=== PATIENT | female | born 1970 | race Caucasian/White ===

== ENCOUNTER 2024-10-24 13:07 | Inpatient (IN) | payer BC, SELFPAY ==
[2024-10-24] VITALS (44 sets, daily range): BP systolic 82–121; BP diastolic 54–109; PULSE 90–116; RESP 16–22; TEMP 36–36.4; O2SAT 70–100; BMI 23.0
--- OUTSIDE RECORDS SUMMARY | 2024-10-24 13:09 | XMS_ITS | Encounter Summary ---
Author Organization [facility] Address [address] [place] [address]. [place] [address] Care Team Providers Care Director Of Pediatric Rehabilitation Name Role Phone Devon Esquivel PA-C Unavailable [phone] Maddie Holden APRN MANNEQUIN WIG MAKER Unavailable [phone] Sinyigaya, Speciose THERMO PROCESSOR Unavailable [phone] No Ref-Primary, Physician Primary Care Provider Sinyigaya, Speciose THERMO PROCESSOR Unavailable [phone] Reason for Visit * Reason Comments Medication Refill propranolol (INDERAL ) 20 MG tablet Encounter Details Date Type Department Care Team (Late st Contact Info) Description 08/26/2023 Telephone [facility] [address] [place] [address] Devon Esquivel PA-C [address] [place] [address] Medication Refill (propranolol (INDERAL) 20 MG tablet) Social History Tobacco Use Types Packs/Day Years Used Date Smoking Tobacco: Every Day Cigarettes Smokeless Tobacco: Never Comments:Trying to quit. Alcohol Use Standard Drinks/Week Comments Not Currently 0 (1 standard drink = 0.6 oz pur e alcohol) PHQ-2 Answer Date Recorded PHQ-2 Score 2 08/18/2023 Adolescent Education Answer Date Record ed Getting School Help Needed Not on file 03/07 Comments No Sex and Gender Information Value Date Recorded Sex Assigned at Not on file Legal Sex Female 3:20 AM COATER HAND Gender Identity Not on file Sexual Orientation Not on file documented as of this encounter Miscellaneous Notes * Telephone Encounter - Kaila Ocampo - 08/26/2023 1:50 PM CDT Was not able to leave a VM due to Pt's VM being full. A MCM was sent to inform Pt that she is due for a annual Physical with AP. If Pt calls back and is able to schedule, Please forward message to AP to address the medication being filled. Kaila Severino Tool Inspector * Telephone Encounter - Lorri Leo APRN CNP - 08/26/2023 1:16 PM CDT Hasn't seen AP in >1 year. Given oziel refilled and advised to schedule in Mar 05. No appts made. Assist with scheduling and route back to AP to advise on refill once scheduled. Lorri Leo CNP documented in this encounter Plan of Treatment Not on file documented as of this encounter Visit Diagnoses Diagnosis Panic disorder with agoraphobia Agoraphobia with panic disorder documented in this encounter Additional Health Concerns Assessment Noted Time PHQ-9 Depression Total Score: 8 06/16/19 24 11:53 AM COATER HAND documented as of this encounter Care Teams Director Of Pediatric Rehabilitation Relationship Specialty Start Date End Date No Ref-Primary, Physician PCP - General 08/29/23 Devon Esquivel PA-C [address] [place] [address] Assigned PCP 12/03/21 Maddie Holden APRN CNP [address] [facility] [address] [place], [place] [address] Assigned Pain Medication Provider 06/21/22 03/04/24 Keila Saunders LICSW [address] [place] [address] Information Broker Information Broker - Clinical 09/02/22 Keila Saunders THERMO PROCESSOR [address] [place] [address] Assigned Behavioral Health Provider 10/04/23 08/04/24 documented as of this encounter
--- OUTSIDE RECORDS SUMMARY | 2024-10-24 13:09 | XMS_ITS | Encounter Summary ---
Author Organization [facility] Address [address] [facility] [place] [address] Care Team Providers Care Surgical Instrument Repair Specialist Name Role Phone Devon Esquivel PA-C Unavailable [phone] Maddie Holden APRN HYDRAULIC REPAIRER Unavailable [phone] Sinyigaya, Speciose COMMUNITY HEALTH NURSE Unavailable [phone] No Ref-Primary, Physician Primary Care Provider Sinyigaya, Speciose COMMUNITY HEALTH NURSE Unavailable [phone] Reason for Visit * Reason Onset Date Comments Opioid Refill 08/25/2023 Encounter Details Date Type Department Care Team (Late st Contact Info) Description 08/25/2023 Telephone [facility] [address] [facility] [address] [place] [address] Maddie Holden APRN HYDRAULIC REPAIRER [address] [place] [address] [place], [place] [address] Opioid Refill Social History Tobacco Use Types Packs/Day Years [...] on file Legal Sex Female 3:20 AM TRAFFIC CONTROL FLAGGER Gender Identity Not on file Sexual Orientation Not on file documented as of this encounter Miscellaneous Notes * Telephone Encounter - Kate Us RN - 08/29/2023 8:15 AM CDT Spoke with Lucian and she reports she has an appointment with her PCP today. She reports she he willnot be coming back to [facility]. She does not want to discuss the question pertaining tothe pain medication. She reports her main concern is with the propranolol on her medication list. She reports she cannot take this medication and believes she may have had a heart attack from using pr opranolol. I did remove it and note it as contraindicated in her chart. MARY GRACE Millan, RN Tip Stitcher [facility] * Telephone Encounter - Nisa Hernandez - 08/26/2023 2:14 PM CDT [facility] Phone Message May a detailed message be left on voicemail: yes Reason for Call: Other: Patient is calling requesting a call back to go over details of why her medications have not been filled. Please call back. Action Taken: Message routed to: Other: [facility] Travel Screening: Not Applicable * Telephone Encounter - Kate Us RN - 08/25/2023 2:46 PM CDT The patient is wondering if she can get a refill of her pain medication even though she is not planning on coming to the clinic anymore and is looking into establishing care elsewhere. Provider note from 08/04/23: The is 50% of your previous opiate dose. There is enough to get to the appointment with me on 08/25/23. This will be the final prescription from me if you do not come in for that appointment. Regarding a documentation liaison telling you that you have a right to a 30 days supply of opiate medications: That does not apply when there is a concern about opiate misuse, no showing appointments etc. I am under no legal obligation to prescribe for you. Hydroxyzine HCl (ATARAX) 25 MG tablet 30 tab*1 Sig: Take 1-2 tablets (25-50 mg) by mouth every 6 hours as needed for anxiety Tizanidine (ZANAFLEX) 2 MG tablet 30 tab*1 Sig: Take 1-2 tablets (2-4 mg) by mouth 3 times daily as needed for muscle spasms Oxycodone (OXYCONTIN) 10 MG 12 hr tablet 32 tab*0 Sig: Take 1 tablet (10 mg) by mouth every 12 hours for 16 days Ok to fill/start August 09, 2023 Oxycodone (ROXICODONE) 5 MG tablet 32 tab*0 Sig: Take 1 tablet (5 mg) by mouth 2 times daily as needed (chronic pain) Ok to fill/start on August 09, 2023 #16 days supply for chronic pain. Routing to provider to review patients request for refills. MARY GRACE Millan, RN Tip Stitcher [facility] * Telephone Encounter - Nisa Hernandez - 08/25/2023 1:49 PM CDT [facility] Phone Message May a detailed message be left on voicemail: yes Reason for Call: Other: Patient is calling stating that she was unable to come to her appointment today due to her car breaking down. The patient is not wanting to reschedule her appointment and is looking for a pain clinic closer to home and is currently looking for a new provider. She is wondering if she would still be able to get a refill of her medications for 30 days even though she is not planning ot reschedule or be seen in the clinic with us anymore. Please review and call back. Action Taken: Message routed to: Other: [facility] Travel Screening: Not Applicable documented in this encounter Plan of Treatment Not on file documented as of this encounter Visit Diagnoses Not on filedocumented in this encounter Additional Health Concerns Assessment Noted Time PHQ-9 Depression Total Score: 8 06/16/19 24 11:53 AM TRAFFIC CONTROL FLAGGER documented as of this encounter Care Teams Surgical Instrument Repair Specialist Relationship Specialty Start Date End Date No Ref-Primary, Physician PCP - General 08/29/23 Devon Esquivel PA-C [address] [place] [address] Assigned PCP 12/03/21 Maddie Holden APRN CNP [address] [facility] [address] [place] [address] Assigned Pain Medication Provider 06/21/22 03/04/24 Keila Saunders LICSW [address] [place] [address] Risk Assessor Risk Assessor - Clinical 09/02/22 Keila Saunders LICSW [address] [place] [address] Assigned Behavioral Health Provider 10/04/23 08/04/24 documented as of this encounter
--- OUTSIDE RECORDS SUMMARY | 2024-10-24 13:09 | XMS_ITS | Encounter Summary ---
Author Organization [facility] Address [address] [facility] [place] [address] Care Team Providers Care Room Designer Name Role Phone Devon Esquivel PA-C Primary Care Provider [phone] Devon Esquivel PA-C Unavailable [phone] Maddie Holden APRN OSTEOPATHY DOCTOR Unavailable [phone] Sinyigaya, Speciose ADVERTISING ASSOCIATE Unavailable [phone] No Ref-Primary, Physician Primary Care Provider Sinyigaya, Speciose ADVERTISING ASSOCIATE Unavailable [phone] Encounter Details Date Type Department Care Team (Latest Contact Info) Description 08/04/2023 [facility] [address] [facility] [address] [place] [address] Maddie Holden APRN OSTEOPATHY DOCTOR [address] [place] [address] [place] [address] Chronic intractable pain (Primary Dx); Opioid withdrawal (H); Degeneration of lumbar or lumbosacral intervertebral disc; Cervical pain; Osteoarthritis of spine with radiculopathy, cervical region Social History Tobacco Use Types Packs/Day Years Used Date Smoking Tobacco: Every Day Cigarettes Smokeless Tobacco: Never Comments:Trying to quit. Alcohol Use Standard Drinks/Week Comments Not Currently 0 (1 standard drink = 0.6 oz pur e alcohol) PHQ-2 Answer Date Recorded PHQ-2 Score 2 06/16/2023 Adolescent Education Answer Date Record ed Getting School Help Needed Not on file 03/07 Comments No Sex and Gender Information Value Date Recorded Sex Assigned at Not on file Legal Sex Female 3:20 AM REVENUE ENFORCEMENT COLLECTION AGENT Gender Identity Not on file Sexual Orientation Not on file documented as of this encounter Miscellaneous Notes * Telephone Encounter - Kate Us RN - 08/09/2023 12:58 PM REVENUE ENFORCEMENT COLLECTION AGENT Outreach X1. No answer and no option for VM. MARY GRACE Millan, RN Straddle Buggy Operator [facility] NUE ENFORCEMENT COLLECTION AGENT * Telephone Encounter - Maddie Holden APRN CNP - 08/09/2023 12:50 PM REVENUE ENFORCEMENT COLLECTION AGENT See my chart message sent to patient. I'm refilling 50% of her previous dose of opiates only enoughto get to the appt with me. Please call her and tell her to read the messages from me. Please tell her that it is my expectation that she will always read any My Chart messages. This is a responsibility of all patients who use the My Chart system. If she misses communications because she fails to check her My Chart, that is her responsibility and the clinic and staff bear no liability for her failure to follow up on requests. Maddie Holden APRN, PROCESS DEVELOPMENT MANAGER-C [facility] NUE ENFORCEMENT COLLECTION AGENT * Telephone Encounter - Kat Parker RN - 08/09/2023 11:54 AM CST Call back to patient: Patient does not bring up anything about feeder catcher at this time Reviewed that due to the current situation the medication are cancelled Patient reviews she is upset by this and reports some withdrawal symptoms at this time such as, Tremor, sweats, anxiety, increased HR. Reviewed withdrawal medications with patient such as hydroxyzine and tizanidine, patient would likethese sent to the [facility] which is listed in the chart. Patient understands and agrees to this situation and does state I guess I will just have to find someone else Please review and advise, please send withdrawal medications as prepared NUE ENFORCEMENT COLLECTION AGENT * Telephone Encounter - Shaila Macias - 08/09/2023 11:03 AM CST Pt called. She said that she talked to a partnership manager and she has the right to get a prescription today. She wants her prescription called in today. Please call Pt back to discuss. Thanks. NUE ENFORCEMENT COLLECTION AGENT * Telephone Encounter - Nayely Mcgovern RN - 08/08/2023 2:41 PM REVENUE ENFORCEMENT COLLECTION AGENT Patient called. Patient asked why her medications were cancelled at the pharmacy. Explained that dona called her in for a urine drug screen on Tuesday and that she did not show. Ordered to cancel scripts at pharmacy until patient shows for an appointment. Patient apologized for missing the nurse visit on Tuesday. She stated that she ran out of gas and could not call anyone due to being in a zone. She stated that she walked with her dog all the way home and had to take breaks due to her leg hurting her. Patient also stated that she had a contract with Maddie and it said that she could have 30 days worth of pills before she is done and neededto find a new provider. Geological E Logger informed patient that she would note all of this and send to her provider. NUE ENFORCEMENT COLLECTION AGENT * Telephone Encounter - Nayely Mcgovern RN - 08/05/2023 2:19 PM REVENUE ENFORCEMENT COLLECTION AGENT Call to pharmacy. Per provider, cancelled scripts for oxyCODONE (OXYCONTIN) 20 MG 12 hr tablet and oxyCODONE (ROXICODONE) 5 MG tablet at [facility] in [place]. NUE ENFORCEMENT COLLECTION AGENT documented in this encounter Plan of Treatment Not on file documented as of this encounter Visit Diagnoses Diagnosis Chronic intractable pain- Primary Other chronic pain Opioid withdrawal (H) Drug withdrawal Degeneration of lumbar or lumbosacral intervertebral disc Cervical pain Cervicalgia Osteoarthritis of spine with radiculopathy, cervical region documented in this encounter Additional Health Concerns Assessment Noted Time PHQ-9 Depression Total Score: 8 06/16/19 24 11:53 AM REVENUE ENFORCEMENT COLLECTION AGENT documented as of this encounter Care Teams Room Designer Relationship Specialty Start Date End Date Devon Esquivel PA-C [address] [place] [address] PCP - General Family Medicine 12/31/21 08/24/23 No Ref-Primary, Physician PCP - General 08/29/23 Devon Esquivel PA-C [address] [place] [address] Assigned PCP 12/03/21 Maddie Holden APRN CNP [address] [facility] [address] [place] [address] Assigned Pain Medication Provider 06/21/22 03/04/24 Keila Saunders LICSW [address] [place] [address] Paper Products Inspector Paper Products Inspector - Clinical 09/02/22 Keila Saunders LICSW [address] [place] [address] Assigned Behavioral Health Provider 10/04/23 08/04/24 documented as of this encounter
--- OUTSIDE RECORDS SUMMARY | 2024-10-24 13:09 | XMS_ITS | Encounter Summary ---
Author Organization [facility] Address [address] [place] [address] Care Team Providers Care Supervisor Packing Name Role Phone Devon Esquivel PA-C Unavailable [phone] Maddie Holden APRN BODY LINER Unavailable [phone] Sinyigaya, Speciose BILLER Unavailable [phone] No Ref-Primary, Physician Primary Care Provider Sinyigaya, Speciose BILLER Unavailable [phone] Encounter Details Date Type Department Care Team (Late st Contact Info) Description 08/26/2023 [facility] Medical Advice [address] [address] Kaila Ocampo Social History Tobacco Use Types Packs/Day Years [...] on file Legal Sex Female 3:20 AM LOTTERIES AGENT Gender Identity Not on file Sexual Orientation Not on file documented as of this encounter Plan of Treatment Not on file documented as of this encounter Visit Diagnoses Not on filedocumented in this encounter Additional Health Concerns Assessment Noted Time PHQ-9 Depression Total Score: 8 06/16/19 24 11:53 AM LOTTERIES AGENT documented as of this encounter Care Teams Supervisor Packing Relationship Specialty Start Date End Date No Ref-Primary, Physician PCP - General 08/29/23 Devon Esquivel PA-C [address] [facility] [place] [address] Assigned PCP 12/03/21 Maddie Holden APRN BODY LINER [address] [facility] [address] [facility] [address] [place] [address] Assigned Pain Medication Provider 06/21/22 03/04/24 Keila Saunders LICSW [address] [place] [address] Catholic Priest Catholic Priest - Clinical 09/02/22 Keila Saunders LICSW [address] [place] [address] Assigned Behavioral Health Provider 10/04/23 08/04/24 documented as of this encounter
--- OUTSIDE RECORDS SUMMARY | 2024-10-24 13:09 | XMS_ITS | Clinical Summary ---
Author Organization [facility] Address [address] [place] [address] Care Team Providers Care Associate Media Planner Name Role Phone Devon Esquivel PA-C Unavailable [phone] Keila Saunders DIRECTOR GLOBAL MARKET RESEARCH Unavailable [phone] No Ref-Primary, Physician Primary Care Provider Allergies Active Allergy Reactions Criticality Noted Date Comments Ibuprofen Other (See Comments) Low 01/28/2011 Causes coughing, no swelling or respiratory issues. Propranolol Other (See Comments) 08/29/2023 Patient reports significant reaction including cardiac event from this medication. Morphine Headache Low 01/28/2011 Propranolol-Hctz 08/29/2023 Sulfa Antibiotics Rash Low 01/28/2011 Medications gabapentin (NEURONTIN) 300 MG capsule Take 2 capsules (600 mg) by mouth At Bedtime Ok to take 1 extra capsule for break through pain PRN. 380 capsule 1 3 Active naloxone (NARCAN) 4 MG/0.1ML nasal sprayIndication s:High risk medication use [place] 1 spray (4 mg) into one nostril alternating nostrils as needed for opioid reversal every 2-3 minutes until assistance arrives 0.2 mL 3 Active hydrOXYzine HCl (ATARAX) 25 MG tabletIndicatio ns:Opioid withdrawal (H) Take 1-2 tablets (25-50 mg) by mouth every 6 hours as needed for anxiety (withdrawal symptoms) 30 tablet 1 4 Active tiZANidine (ZANAFLEX) 2 MG tabletIndicatio ns:Opioid withdrawal (H) Take 1-2 tablets (2-4 mg) by mouth 3 times daily as needed for muscle spasms (withdrawal symptoms) 30 tablet 1 4 Active Active Problems Problem Noted Date Diagnosed Date NO SHOW 03/07/2023 Opioid Dependence With Continuous Use Overview (11/25/2020): Created by Conversion Lumbar Disc Degeneration Overview (11/25/2020): Created by Conversion Bilateral low back pain with right-sided sciatic a Overview (11/25/2020): Created by Conversion Social History Tobacco Use Types Packs/Day Years Used Date Smoking Tobacco: Every Day Cigarettes Smokeless Tobacco: Never Tobacco Cessation:Ready to Q uit: Not Asked; Counseling Given: Not Answered Comments:Trying to quit. Alcohol Use Standard Drinks/Week Comments Not Currently 0 (1 standard drink = 0.6 oz pur e alcohol) PHQ-2 Answer Date Recorded PHQ-2 Score 2 08/18/2023 Adolescent Education Answer Date Record ed Getting School Help Needed Not on file 03/07 Comments No Sex and Gender Information Value Date Recorded Sex Assigned at Not on file Legal Sex Female 3:[address] Gender Identity Not on file Sexual Orientation Not on file Last Filed Vital Signs Vital Sign Reading Time Taken Comments Blood Pressure 144/91 05/26/2023 8:[address] PRODUCTION Pulse 81 05/26/2023 8:[address] PRODUCTION Temperature 36.7 C (98.1 F) 12/31/2021 1:52 PM CDT Respiratory Rate 13 12/31/2021 1:52 PM CDT Oxygen Saturation 94% 12/23/2022 11:40 AM CDT Inhaled Oxygen Concentration - - Weight 59.4 kg (131 lb) 12/23/2022 11:40 AM CDT Height 161.5 cm (5' 3.6) 12/31/2021 1:52 PM CDT Body Mass Index 22.77 12/31/2021 1:52 PM CDT Plan of Treatment Health Maintenance Due Date Last Done Comments CT COLONOGRAPHY 1970 DEPRESSION ACTION PLAN 1970 DIABETES SCREENING 1970 FIT 1970 FLEX SIG 1970 MAMMO SCREENING 1970 sDNA (Cologuard) 1970 COLONOSCOPY 1980 COLORECTAL CANCER SCREENING 1980 HIV SCREENING 1985 HEPATITIS C SCREENING 1988 HEPATITIS A IMMUNIZATION (1 of 2 - Risk 2-dose series) 1989 HEPATITIS B IMMUNIZATION (1 of 3 - 19+ 3-dose series) 1989 Pneumococcal Vaccine: 50+ Years (1 of 2 - PCV) 1989 PAP 1991 LIPID 2010 LUNG CANCER SCREENING 2020 ZOSTER IMMUNIZATION (1 of 2) 2020 DTAP/TDAP/TD IMMUNIZATION (1 - Tdap) 12/13/2020 12/12/2020, 02/19/2000 ANNUAL REVIEW OF HM ORDERS 12/31/2022 12/31/2021 YEARLY PREVENTIVE VISIT 12/31/2022 12/31/2021 CONTROLLED SUBSTANCE AGREEMENT FOR CHRONIC PAIN MANAGEMENT 08/17/2023 08/16/2022 URINE DRUG SCREEN 08/17/2023 08/16/2022, , 06/27/2020, Additional history exists SALVADOR ASSESSMENT 01/22/2024 01/21/2023, 06/0 12/2022, 09/02/2022, Additional history exists COVID-19 Vaccine ( season) 2024 PHQ-9 06/16/2024 06/16/2023, 0806/2022, 11/17/2022, Additional history exists INFLUENZA VACCINE (Season Ended) 2025 04/16/2010, 03/14/2003 ADVANCE CARE PLANNING 12/31/2026 12/31/2021 HPV IMMUNIZATION Aged Out No longer e ligible based on patient's age to complete this topic MENINGITIS IMMUNIZATION Aged Out No l onger eligible based on patient's age to complete this topic Procedures Procedure Name Priority Date/Time Associated Diagnosis Comments HC MISC TEST Routine 08/16/2022 1:[address] PRODUCTION parts counterman (current) use of opiate analgesic from Last 3 Months or Most Recently Relevant to Health Maintenance Results * Compliance Drug Analysis Urine (08/16/2022 1:[address] PRODUCTION) Comprehensive Drug Analysis Summary Report FINAL 08/23/2022 6:06 PM CDT [facility] Comment: COMPREHENSIVE DRUG ANALYSIS,UR Test Result Flag Units Drug Present Oxymorphone 1882 ng/mg creat Noroxycodone 710 ng/mg creat Noroxymorphone 648 ng/mg creat Oxymorphone, noroxycodone and noroxymorphone are expected metabolites of oxycodone. Noroxymorphone is an expected metabolite of oxymorphone. Sources of oxycodone and/or oxymorphone include scheduled prescription medications. Gabapentin PRESENT Salicylate PRESENT Test Result Flag Units Ref Range Creatinine 152 mg/dL >=20 For clinical consultation, please call . Urine URINE SPECIMEN OBTAINED BY CLEAN CATCH PROCEDURE / Unknown Non-blood Collection / Unknown 08/16/2022 1:[address] PRODUCTION 08/16/2022 6:[address] PRODUCTION Narrative [facility] - 08/23/2022 6:06 PM CDT Performed at: - [facility] [address] [place], [place] [id number] [employer]: Nandini Garcia [facility], Phone: [phone] us Maddie Holden MANAGER ATHLETICS INSIDE SALES ADVERTISING EXECUTIVE LAB - URINE ORDERAB LES Final Result [facility] [employer] [address] [place] [address], [facility] [phone] from Last 3 Months or Most Recently Relevant to Health Maintenance Insurance Campaign Monitor Campaign [place] [place] [address] Care Teams Associate Media Planner Relationship Specialty Start Date End Date No Ref-Primary, Physician PCP - General 08/29/23 Devon Esquivel PA-C [address] [place] [address] Assigned PCP 12/03/21 Keila Saunders LICSW [address] [place] [address] Engine Mechanic Engine Mechanic - Clinical 09/02/22
--- OUTSIDE RECORDS SUMMARY | 2024-10-24 13:10 | XMS_ITS | Encounter Summary ---
Author Organization [place] Address [address] [place] [address] Care Team Providers Care Gm/Svp Global Publisher Business Name Role Phone Lisa Davey MD Primary Care Provider [phone] Odalys Phillips APRN GAS APPLIANCE SERVICER HELPER Unavailable Mile Devon Rachel PA-C Primary Care Provider [phone] Devon Esquivel PA-C Unavailable [phone] Maddie Holden APRN GAS APPLIANCE SERVICER HELPER Unavailable [phone] Sinyigaya, Speciose GEOPOLITICS TEACHER Unavailable [phone] No Ref-Primary, Physician Primary Care Provider Sinyigaya, Speciose GEOPOLITICS TEACHER Unavailable [phone] Reason for Visit * Reason Onset Date Comments Opioid Refill 09/09/2021 oxyCODONE (ROXIC ODONE) 5 MG tablet, oxyCODONE (OXYCONTIN) 20 MG 12 hr tablet Encounter Details Date Type Department Care Team (Late st Contact Info) Description 09/09/2021 Refill [facility] [address] [facility] [address] [place] [address] Fede Velazquez MD [address] [place] [address] Opioid Refill (oxyCODONE (ROXICODONE) 5 MG tablet, oxyCODONE (OXYCONTIN) 20 MG 12 hr tablet) Social History Tobacco Use Types Packs/Day Years Used Date Smoking Tobacco: Every Day Cigarettes Smokeless Tobacco: Never Comments:Trying to quit. Alcohol Use Standard Drinks/Week Comments Not Asked 0 (1 standard drink = 0.6 oz pur e alcohol) Comments Unknown Sex and Gender Information Value Date Recorded Sex Assigned at Not on file Legal Sex Female 3:20 AM TUBE REBUILDER Gender Identity Not on file Sexual Orientation Not on file documented as of this encounter Miscellaneous Notes * Telephone Encounter - Kat Parker RN - 10/12/2021 1:18 PM CDT Pending Prescriptions: Disp Refills oxyCODONE (OXYCONTIN) 20 MG 12 hr tablet 60 tab*0 Sig: Take 1 tablet (20 mg) by mouth 2 times daily Dispense date: 10/13/21, start date: 10/17/21 Signed Prescriptions: Disp Refills oxyCODONE (OXYCONTIN) 20 MG 12 hr tablet 60 tab*0 Sig: Take 1 tablet (20 mg) by mouth 2 times daily Dispense date: 09/17/21, start date: 09/19/21 Authorizing Provider: FEDE VELAZQUEZ oxyCODONE (ROXICODONE) 5 MG tablet 120 ta*0 Sig: Take 1 tablet (5 mg) by mouth 4 times daily as needed (chronic pain) Dispense date: 09/17/21, start date: 09/19/21 Authorizing Provider: FEDE VELAZQUEZ * Telephone Encounter - Lamar Baptiste RN - 09/09/2021 2:10 PM CDT Medication refill information reviewed. Prescriptions prepped for review. Pending Prescriptions: Disp Refills oxyCODONE (OXYCONTIN) 20 MG 12 hr tablet 60 tab*0 Sig: Take 1 tablet (20 mg) by mouth 2 times daily Dispense date: 09/17/21, start date: 09/19/21 oxyCODONE (ROXICODONE) 5 MG tablet 120 ta*0 Sig: Take 1 tablet (5 mg) by mouth 4 times daily as needed (chronic pain) Dispense date: 09/17/21, start date: 09/19/21 Will route to provider. * Telephone Encounter - Kady Mao Alvarado - 09/09/2021 2:02 PM CDT Received call from patient requesting refill(s) of oxyCODONE (OXYCONTIN) 20 MG 12 hr tablet, oxyCODONE (ROXICODONE) 5 MG tablet Last dispensed from pharmacy on 08/18/21 Patient's last office/virtual visit by prescribing provider on 06/19/21 Next office/virtual appointment scheduled for 10/26/21 Last urine drug screen date 06/27/20 Current opioid agreement on file (completed within the last year) Yes Date of opioid agreement: 06/27/20 E-prescribe to [id number] - [place] - [address] [place] [address] AT [facility] [address] [address] pharmacy Will route to nursing pool for review and preparation of prescription(s). documented in this encounter Plan of Treatment Not on file documented as of this encounter Visit Diagnoses Diagnosis Degeneration of lumbar or lumbosacral intervertebral disc Other chronic pain Chronic pain syndrome Opioid type dependence, continuous (H) Opioid type dependence, continuous documented in this encounter Care Teams Gm/Svp Global Publisher Business Relationship Specialty Start Date End Date Lisa Davey MD PCP - General 11/08/13 12/30/21 Devon Esquivel PA-C [address] [address] [address] PCP - General Family Medicine 12/31/21 08/24/23 No Ref-Primary, Physician PCP - General 08/29/23 Odalys Phillips APRN GAS APPLIANCE SERVICER HELPER Assigned Behavioral Health Provider 01/11/21 12/17/22 Devon Esquivel PA-C [address] [facility] [place] [address] Assigned PCP 12/03/21 Maddie Holden APRN GAS APPLIANCE SERVICER HELPER [address] [place], [place] [address] Assigned Pain Medication Provider 06/21/22 03/04/24 Keila Saunders LICSW [address] [place], [place] [id number] Quality Assurance Monitor Quality Assurance Monitor - Clinical 09/02/22 Keila Saunders LICSW [address] [place], [place] [id number] Assigned Behavioral Health Provider 10/04/23 08/04/24 documented as of this encounter
--- OUTSIDE RECORDS SUMMARY | 2024-10-24 13:10 | XMS_ITS | Encounter Summary ---
Author Organization [place] Address [address] [facility] [place] [address] Care Team Providers Care Truck Unloader Name Role Phone Devon Esquivel PA-C Primary Care Provider [phone] Devon Esquivel PA-C Unavailable [phone] Maddie Holden APRN WOODWORKING MACHINE OFFBEARER Unavailable [phone] Sinyigaya, Speciose TRICK RODEO RIDER Unavailable [phone] No Ref-Primary, Physician Primary Care Provider Sinyigaya, Speciose TRICK RODEO RIDER Unavailable [phone] Reason for Visit * Reason Onset Date Comments Patient Request 04/04/2023 Patient appointm ent questions Encounter Details Date Type Department Care Team (Late st Contact Info) Description 04/04/2023 Telephone [facility] [address] [facility] [address] [place] [address] Maddie Holden APRN WOODWORKING MACHINE OFFBEARER [address] [facility] [address] [place], [place] [id number] Patient Request (Patient appointment questions) Social History Tobacco Use Types Packs/Day Years [...] on file 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 * Telephone Encounter - ChamberlainSybil - 04/04/2023 1:13 PM CDT [facility] Phone Message May a detailed message be left on voicemail: yes Reason for Call: Other: Patient is wondering if she can bring her dog to her appointment on 04/14/2023 with Maddie Holden APRN CNP, if she has to, she states she is wanting to ask ahead of time because she would prefer not to have to leave her dog in her car and would figure something else out if the answer was no. Action Taken: Message routed to: Other: [facility] Pain Travel Screening: Not Applicable documented in this encounter Plan of Treatment Not on file documented as of this encounter Visit Diagnoses Not on filedocumented in this encounter Additional Health Concerns Assessment Noted Time PHQ-9 Depression Total Score: 7 01/24/20 10:35 PM CDT documented as of this encounter Care Teams Truck Unloader Relationship Specialty Start Date End Date Devon Esquivel PA-C [address] [address] [address] PCP - General Family Medicine 12/31/21 08/24/23 No Ref-Primary, Physician PCP - General 08/29/23 Devon Esquivel PA-C [address] [address] [address] Assigned PCP 12/03/21 Maddie Holden APRN CNP [address] [place] [place] [address] Assigned Pain Medication Provider 06/21/22 03/04/24 Keila Saunders LICSW [address] [place] [address] Maintenance Groundskeeper Maintenance Groundskeeper - Clinical 09/02/22 Keila Saunders LICSW [address] [place] [address] Assigned Behavioral Health Provider 10/04/23 08/04/24 documented as of this encounter
--- OUTSIDE RECORDS SUMMARY | 2024-10-24 13:10 | XMS_ITS | Encounter Summary ---
Author Organization [place] Address [address] [place] [address]. [place] [address] Care Team Providers Care Director Of Rehabilitation And Wellness Name Role Phone Lisa Davey MD Primary Care Provider [phone] Odalys Phillips APRN ARMATURE WINDER HELPER REPAIR Unavailable Mile vailaDevon Reyes PA-C Primary Care Provider [phone] Devon Esquivel PA-C Unavailable [phone] Maddie Holden REMELTER ARMATURE WINDER HELPER REPAIR Unavailable [phone] Sinyigaya, Speciose SENIOR CLINICAL PROJECT MANAGER Unavailable [phone] No Ref-Primary, Physician Primary Care Provider Sinyigaya, Speciose SENIOR CLINICAL PROJECT MANAGER Unavailable [phone] Encounter Details Date Type Department Care Team (Late st Contact Info) Description 03/10/2017 Records - [facility] CONVERSION Scan, Non-Provider Social History Tobacco Use Types Packs/Day Years Used Date Smoking Tobacco: Never Assessed Comments Unknown Sex and Gender Information Value Date Recorded Sex Assigned at Not on file Legal Sex Female 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 PROCUREMENT 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 Gender Identity Not on file Sexual Orientation Not on file documented as of this encounter Plan of Treatment Not on file documented as of this encounter Visit Diagnoses Not on filedocumented in this encounter Care Teams Director Of Rehabilitation And Wellness Relationship Specialty Start Date End Date Lisa Davey MD PCP - General 11/08/13 12/30/21 Devon Esquivel PA-C [address] [place] [address] PCP - General Family Medicine 12/31/21 08/24/23 No Ref-Primary, Physician PCP - General 08/29/23 Odalys Phillips APRN ARMATURE WINDER HELPER REPAIR Assigned Behavioral Health Provider 01/11/21 12/17/22 Devon Esquivel PA-C [address] [facility] [place] [address] Assigned PCP 12/03/21 Maddie Holden APRN ARMATURE WINDER HELPER REPAIR [address] [address] Assigned Pain Medication Provider 06/21/22 03/04/24 Keila Saunders LICSW [address] [place] [address] Movie Theater Manager Movie Theater Manager - Clinical 09/02/22 Keila Saunders LICSW [address] [place] [address] Assigned Behavioral Health Provider 10/04/23 08/04/24 documented as of this encounter
--- OUTSIDE RECORDS SUMMARY | 2024-10-24 13:10 | XMS_ITS | Encounter Summary ---
Author Organization [place] Address [facility] [place] [address] Care Team Providers Care Corner Trimmer Operator Name Role Phone Odalys Phillips APRN STEREO EQUIPMENT SALESPERSON Unavailable Mile Devon Rachel PA-C Primary Care Provider [phone] Devno Esquivel PA-C Unavailable [phone] Maddie Hodlen APRN STEREO EQUIPMENT SALESPERSON Unavailable [phone] Sinyigaya, Speciose PROJECT MANAGER ENTERTAINMENT AND MEDIA Unavailable [phone] No Ref-Primary, Physician Primary Care Provider Sinyigaya, Speciose PROJECT MANAGER ENTERTAINMENT AND MEDIA Unavailable [phone] Encounter Details Date Type Department Care Team (Late st Contact Info) Description 11/21/2022 MyC Medical Advice [facility] [address] [place] [address] Maddie Holden APRN STEREO EQUIPMENT SALESPERSON [address] [address] Social History Tobacco Use Types Packs/Day Years Used Date Smoking Tobacco: Every Day Cigarettes Smokeless Tobacco: Never Comments:Trying to quit. Alcohol Use Standard Drinks/Week Comments Not Currently 0 (1 standard drink = 0.6 oz pur e alcohol) PHQ-2 Answer Date Recorded PHQ-2 Score 3 11/17/2022 Comments No Sex and Gender Information Value Date Recorded Sex Assigned at Not on file Legal Sex Female 3:20 AM SOFTWARE DEVELOPMENT INTERN Gender Identity Not on file Sexual Orientation Not on file COVID-19 Exposure Response Date Recorded In the last 10 days, have yo u been in contact with someone who was confirmed or suspected to have Coronavirus/COVID-19? No / Unsure 11/16/2022 9:08 AM CDT documented as of this encounter Miscellaneous Notes * Telephone Encounter - Maddie Holden APRN CNP - 11/21/2022 5:55 PM CDT RN: If Maki would like a referral to Ortho placed. Please route request to Dr Quezada documented in this encounter Plan of Treatment Not on file documented as of this encounter Visit Diagnoses Not on filedocumented in this encounter Additional Health Concerns Assessment Noted Time PHQ-9 Depression Total Score: 10 023 10:44 PM CDT documented as of this encounter Care Teams Corner Trimmer Operator Relationship Specialty Start Date End Date Devon Esquivel PA-C [address] [facility] [place] [address] PCP - General Family Medicine 12/31/21 08/24/23 No Ref-Primary, Physician PCP - General 08/29/23 Odalys Phillips APRN CNP Assigned Behavioral Health Provider 01/11/21 12/17/22 Devon Esquivel PA-C [address] [facility] [place] [address] Assigned PCP 12/03/21 Maddie Holden APRN CNP [address] [facility] [address] [place], [place] [id number] Assigned Pain Medication Provider 06/21/22 03/04/24 Keila Saunders LICSW [address] [place] [address] Emergency Room Registered Nurse Emergency Room Registered Nurse - Clinical 09/02/22 Keila Saunders PROJECT MANAGER ENTERTAINMENT AND MEDIA [address] [place] [address] Assigned Behavioral Health Provider 10/04/23 08/04/24 documented as of this encounter
--- OUTSIDE RECORDS SUMMARY | 2024-10-24 13:10 | XMS_ITS | Encounter Summary ---
Author Organization [place] Address [address] [place] [address] Care Team Providers Care Component Overhaul Operator Name Role Phone Devon Esquivel PA-C Primary Care Provider [phone] Devon Esquivel PA-C Unavailable [phone] Maddie Holden Asya PRESS OPERATOR [employer] SALESFORCE BUSINESS ANALYST Unavailable [phone] Sinyigaya, Speciose POINT OF CARE TECHNICIAN Unavailable [phone] No Ref-Primary, Physician Primary Care Provider Sinyigaya, Speciose POINT OF CARE TECHNICIAN Unavailable [phone] Encounter Details Date Type Department Care Team (Late st Contact Info) Description 06/23/[address] [facility] [address] [place] [address] Arnoldo Smiley Social History Tobacco Use Types Packs/Day Years [...] on file Legal Sex Female 3:20 AM SPOOL WINDER Gender Identity Not on file Sexual Orientation Not on file documented as of this encounter Plan of Treatment Not on file documented as of this encounter Visit Diagnoses Not on filedocumented in this encounter Additional Health Concerns Assessment Noted Time PHQ-9 Depression Total Score: 8 06/16/19 24 11:53 AM SPOOL WINDER documented as of this encounter Care Teams Component Overhaul Operator Relationship Specialty Start Date End Date Devon Esquivel PA-C [address] [place] [address] PCP - General Family Medicine 12/31/21 08/24/23 No Ref-Primary, Physician PCP - General 08/29/23 Devon Esquivel PA-C [address] [place] [address] Assigned PCP 12/03/21 Maddie Holden APRN CNP [address] [place] [place] [address] Assigned Pain Medication Provider 06/21/22 03/04/24 Keila Saunders LICSW [address] [place] [address] Direct Chill Caster Direct Chill Caster - Clinical 09/02/22 Keila Saunders LICSW [address] [place] [address] Assigned Behavioral Health Provider 10/04/23 08/04/24 documented as of this encounter
--- OUTSIDE RECORDS SUMMARY | 2024-10-24 13:10 | XMS_ITS | Encounter Summary ---
Author Organization [place] Address [facility] [place] [address] Care Team Providers Care Materials Scientist Name Role Phone Lisa Davey MD Primary Care Provider [phone] Odalys Phillips APRN SALESPERSON HOUSEHOLD APPLIANCES Unavailable Mile Devon Rachel PA-C Primary Care Provider [phone] Devon Esquivel PA-C Unavailable [phone] Maddie Holden APRN SALESPERSON HOUSEHOLD APPLIANCES Unavailable [phone] Sinyigaya, Speciose PRINTING TECHNICIAN Unavailable [phone] No Ref-Primary, Physician Primary Care Provider Sinyigaya, Speciose PRINTING TECHNICIAN Unavailable [phone] Reason for Visit * Reason Onset Date Comments Opioid Refill 07/13/2021 oxycontin, oxyco done Encounter Details Date Type Department Care Team (Late st Contact Info) Description 07/13/2021 Telephone [facility] [address] [facility] [address] [place] [address] Maddie Holden APRN SALESPERSON HOUSEHOLD APPLIANCES [address] [facility] [address] [place] [address] Opioid Refill (oxycontin, oxycodone) Social History Tobacco Use Types Packs/Day Years Used Date Smoking Tobacco: Every Day Cigarettes Smokeless Tobacco: Never Comments:Trying to quit. Alcohol Use Standard Drinks/Week Comments Not Asked 0 (1 standard drink = 0.6 oz pur e alcohol) PHQ-2 Answer Date Recorded PHQ-2 Score 2 08/18/2023 Adolescent Education Answer Date Record ed Getting School Help Needed Not on file 03/07 Comments Unknown Sex and Gender Information Value Date Recorded Sex Assigned at Not on file Legal Sex Female 3:20 AM FIRE CLAIMS ADJUSTER Gender Identity Not on file Sexual Orientation Not on file COVID-19 Exposure Response Date Recorded In the last 10 days, have yo u been in contact with someone who was confirmed or suspected to have Coronavirus/COVID-19? Unable to assess 01/21/2023 11:09 AM CDT documented as of this encounter Miscellaneous Notes * Telephone Encounter - Lamar Baptiste RN - 07/13/2021 11:00 AM CST Medication refill information reviewed. Prescriptions prepped for review. Pending Prescriptions: Disp Refills oxyCODONE (OXYCONTIN) 20 MG 12 hr tablet 60 tab*0 Sig: Take 1 tablet (20 mg) by mouth 2 times daily Chronic pain - fill 07/20/21 for use from 07/21/21-08/20/21 oxyCODONE (ROXICODONE) 5 MG tablet 120 ta*0 Sig: Take 1 tablet (5 mg) by mouth 4 times daily as needed (chronic pain) fill 07/20/21 for use from 07/21/21-08/20/21 Will route to provider. CLAIMS ADJUSTER * Telephone Encounter - Kady Mao S - 07/13/2021 9:43 AM CST Received call from patient requesting refill(s) of oxyCODONE (OXYCONTIN) 20 MG 12 hr tablet, oxyCODONE (ROXICODONE) 5 MG tablet Last dispensed from pharmacy on 06/22/21 Patient's last office/virtual visit by prescribing provider on 06/19/21 Next office/virtual appointment scheduled for 10/26/21 Last urine drug screen date 06/27/20 Current opioid agreement on file (completed within the last year) No Date of opioid agreement: 06/27/20 E-prescribe to [facility] #[id number] [facility] [address] [place] [address] AT [facility] [address] [facility] [address] [address] [place] [address] pharmacy Will route to nursing pool for review and preparation of prescription(s). CLAIMS ADJUSTER documented in this encounter Plan of Treatment Not on file documented as of this encounter Visit Diagnoses Diagnosis Degeneration of lumbar or lumbosacral intervertebral disc Other chronic pain Chronic pain syndrome Opioid type dependence, continuous (H) Opioid type dependence, continuous documented in this encounter Care Teams Materials Scientist Relationship Specialty Start Date End Date Lisa Davey MD PCP - General 11/08/13 12/30/21 Devon Esquivel PA-C [address] [place] [address] PCP - General Family Medicine 12/31/21 08/24/23 No Ref-Primary, Physician PCP - General 08/29/23 Odalys Phillips APRN SALESPERSON HOUSEHOLD APPLIANCES Assigned Behavioral Health Provider 01/11/21 12/17/22 Devon Esquivel PA-C [address] [place] [address] Assigned PCP 12/03/21 Maddie Holden APRN SALESPERSON HOUSEHOLD APPLIANCES [address] [facility] [address] [place], [place] [address] Assigned Pain Medication Provider 06/21/22 03/04/24 Keila Saunders LICSW [address] [place] [address] Residential Specialist Residential Specialist - Clinical 09/02/22 Keila Saunders, PRINTING TECHNICIAN [address] [place] [address] Assigned Behavioral Health Provider 10/04/23 08/04/24 documented as of this encounter
--- OUTSIDE RECORDS SUMMARY | 2024-10-24 13:10 | XMS_ITS | Encounter Summary ---
Author Organization [facility] Address [address] [place] [address] Care Team Providers Care Selvage Machine Operator Name Role Phone Odalys Phillips APRN [employer] Unavailable Mile Devon Rachel PA-C Primary Care Provider [phone] Devon Esquivel PA-C Unavailable [phone] Maddie Holden APRN [employer] Unavailable [phone] Sinyigaya, Speciose ACTIVITY THERAPY SPECIALIST Unavailable [phone] No Ref-Primary, Physician Primary Care Provider Sinyigaya, Speciose ACTIVITY THERAPY SPECIALIST Unavailable [phone] Reason for Visit * Reason Onset Date Comments Opioid Refill 12/06/2022 oxyCODONE (ROXIC ODONE) 5 MG tabletoxyCODONE (OXYCONTIN) 20 MG 12 hr tablet Encounter Details Date Type Department Care Team (Late st Contact Info) Description 12/06/2022 Refill [facility] [address] [place] [address] Maddie Holden APRN [employer] [address] [place] [address] Opioid Refill (oxyCODONE (ROXICODONE) 5 MG tablet/oxyCODONE (OXYCONTIN) 20 MG 12 hr tablet) Social [...] on file Legal Sex Female 3:20 AM MONEY POSITION OFFICER Gender Identity Not on file Sexual Orientation Not on file COVID-19 Exposure Response Date Recorded In the last 10 days, have yo u been in contact with someone who was confirmed or suspected to have Coronavirus/COVID-19? No / Unsure 11/16/2022 9:08 AM CDT documented as of this encounter Miscellaneous Notes * Telephone Encounter - Kate Us RN - 12/06/2022 3:27 PM CDT Medication refill information reviewed. Due date for oxyCODONE (ROXICODONE) 5 MG tablet and oxyCODONE (OXYCONTIN) 20 MG 12 hr tablet is 12/14/22 Prescriptions prepped for review. Will route to provider. * Telephone Encounter - Tulio Estes - 12/06/2022 2:47 PM CDT Received refill request for: ?? oxyCODONE (ROXICODONE) 5 MG tablet ?? Last dispensed from pharmacy on 11/12/2022. ?? oxyCODONE (OXYCONTIN) 20 MG 12 hr tablet ?? Last dispensed from pharmacy on 11/11/2022. Patient's last office/virtual visit by prescribing provider on 11/04/2022. Next office/virtual appointment scheduled for 12/23/2022. Last urine drug screen date 08/16/2022. Current opioid agreement on file? Yes Date of opioid agreement: 08/16/2022. E-prescribe to: [id number] - [place], [place] - [address] [facility] [address] Will route to nursing [place] for review and preparation of prescription(s). * Telephone Encounter - Nisa Hernandez - 12/06/2022 12:22 PM CDT Health Call Center Phone Message May a detailed message be left on voicemail: yes Reason for Call: Medication Refill Request Has the patient contacted the pharmacy for the refill? Yes Name of medication being requested: oxyCODONE (ROXICODONE) 5 MG tablet oxyCODONE (OXYCONTIN) 20 MG 12 hr tablet Provider who prescribed the medication: Maddie Holden Pharmacy: [id number] - [place], [place] - [address] [place] Date medication is needed: 12/15/22 Action Taken: Message routed [facility]: [facility] Travel Screening: Not Applicable documented in this encounter Plan of Treatment Not on file documented as of this encounter Visit Diagnoses Diagnosis Chronic intractable pain Other chronic pain Degeneration of lumbar or lumbosacral intervertebral disc Cervical pain Cervicalgia documented in this encounter Additional Health Concerns Assessment Noted Time PHQ-9 Depression Total Score: 10 023 10:44 PM CDT documented as of this encounter Care Teams Selvage Machine Operator Relationship Specialty Start Date End Date Devon Esquivel PA-C [address] [place] [address] PCP - General Family Medicine 12/31/21 08/24/23 No Ref-Primary, Physician PCP - General 08/29/23 Odalys Phillips APRN [employer] Assigned Behavioral Health Provider 01/11/21 12/17/22 Devon Esquivel PA-C [address] [place] [address] Assigned PCP 12/03/21 Maddie Holden APRN [employer] [address] [id number] Assigned Pain Medication Provider 06/21/22 03/04/24 Keila Saunders LICSW [address] [place] [id number] Pump Assembler Pump Assembler - Clinical 09/02/22 Keila Saunders LICSW [address] [address] Assigned Behavioral Health Provider 10/04/23 08/04/24 documented as of this encounter
--- OUTSIDE RECORDS SUMMARY | 2024-10-24 13:10 | XMS_ITS | Continuity of Care Document ---
Author Organization [facility] Address [address] [place] [address] Phone Care Team Providers Care Hot Blaster Name Role Phone Sergio Sena MD Unavailable Unavailable Procedures Procedure Date Est Pt Eval 15 Min Offic/outpt E&m Estab [place] [address] 14 Offic/outpt E&m Estab [employer] 4 Offic/outpt E&m Estab [place] [address] 13 Offic/outpt E&m Estab [facility] 3 Offic/outpt E&m Estab [place] [address] 13 Offic/outpt E&m Estab [employer] 3 Offic/outpt E&m Estab [employer] 3 Offic/outpt E&m Estab Mod Offic/outpt E&m Estab [facility] Offic/outpt E&m Estab Mod Offic/outpt E&m Estab Mod Offic/outpt E&m Estab [facility] Offic/outpt E&m Estab Mod Offic/outpt E&m Estab [facility] Offic/outpt E&m Estab Mod Offic/outpt E&m Estab Low Offic/outpt E&m Estab [facility] Offic/outpt E&m Estab [facility] Offic/outpt E&m Estab Low Offic/outpt E&m Estab [facility] Offic/outpt E&m Estab [facility] Offic/outpt E&m Estab Low Offic/outpt E&m Estab Low Offic/outpt E&m Estab Low Offic/outpt E&m Estab Low Offic/outpt E&m Estab [facility] 0 Offic/outpt E&m Estab Low Offic/outpt E&m Estab Low Offic/outpt E&m Estab Mod Offic/outpt E&m Estab [facility] Offic/outpt E&m Estab Min Offic/outpt E&m Estab Low Offic/outpt E&m Estab [facility] 2 10 Offic/outpt E&m Estab [facility] 0 Offic/outpt E&m Estab Minor 10 10 Offic/outpt E&m Estab Minor 10 10 Offic/outpt E&m Estab Minor 10 10 Offic/outpt E&m Estab [facility] 2 09 Offic/outpt E&m Estab [facility] 9 Offic/outpt E&m Estab [facility] 9 Offic/outpt E&m Estab Lowmod 9 Offic/outpt E&m Estab [facility] Offic/outpt E&m Estab Low-mod 9 Offic/outpt E&m Estab Lowmod 9 Offic/outpt E&m Estab [facility] 8 Offic/outpt E&m Estab Low-mod 8 Offic/outpt E&m Estab Low-mod 8 Offic/outpt E&m Estab Low-mod 8 Offic/outpt E&m Estab Low-mod 8 Offic/outpt E&m Estab Low-mod 8 Offic/outpt E&m Estab Low-mod 7 Offic/outpt E&m Estab [facility] 7 Offic/outpt E&m Estab Low-mod 7 Offic/outpt E&m Estab Low-mod 7 Offic/outpt E&m Estab Low-mod 7 Offic/outpt E&m Estab Low-mod 7 Offic Cons New/estab Mod-hi 60 07 Advance Directives Directive Yes / No Effective Date File Name Other Directive No N/A N/A WARNING:The information contained in this section is historical and is provided for information only and does not constitute a legal document or any assurance that the information is still accurate. Please verify the information with the abbasi of the legal document before using it for clinical purposes. Encounters Encounter Description Practice Location Reason(s) For Visit Diagnoses Date Provider Providers Copied on Encounter ИРИНА Dahl, [address] [facility] [address], [place], [id number], tel:[phone] [facility] No Information 5 Nathen Hill. [address], [id number], [place]. tel:[phone] Est Pt Eval 15 Min [facility], [address] [facility] [address], [place], [id number], tel:[phone] [facility] No Information No Information Referring Provider: Aneta Wright, [address] [place], [address]. tel:[phone] Offic/outpt E&m Estab Mod-hi 2 [facility], [address] [facility] [address], [place], [address], tel:[phone] [facility] No Information No Information Referring Provider: Aneta Wright, [address] [place], [address]. tel:[phone] Offic/outpt E&m Estab Low-mod [facility], [address], [place], [place], [address], [place] tel:[phone] [facility] No Information 4 No Information Referring Provider: Aneta Wright, [address] [facility], [place], [address]. tel:[phone] Offic/outpt E&m Estab Mod-hi 2 [facility], [facility], [address], [place], [place], [address], [place] tel:[phone] [facility] No Information 3 No Information Referring Provider: Aneta Wright, [address] [facility], [place], [address]. tel:[phone] Offic/outpt E&m Estab Low-mod [facility], [facility], [address], [place], [address], [place] tel:[phone] [facility] No Information 3 No Information Referring Provider: Aneta Wright, [address] [facility], [place], [address]. tel:[phone] Offic/outpt E&m Estab Mod-hi 2 [facility], [facility], [address], [place], [place], [address], [place] tel:[phone] [facility] No Information 3 No Information Referring Provider: Aneta Wright, [address] [place], [address]. tel:[phone] Offic/outpt E&m Estab Low-mod [facility], [facility], [address], [place], [place], [address], [place] tel:[phone] [facility] No Information 3 No Information Referring Provider: Aneta Wright, [address] [place], [address]. tel:[phone] Offic/outpt E&m Estab Low-mod [facility], [facility], [address], [place], [place], [address], [place] tel:[phone] [facility] No Information 3 No Information Referring Provider: Aneta Wright, [address] [facility], [place], [address]. tel:[phone] Offic/outpt E&m Estab Mod [facility], [facility], [address], [place], [place], [address], [place] tel:[phone] [facility] No Information 3 No Information Referring Provider: Aneta Wright, [address] [place], [address]. tel:[phone] Offic/outpt E&m Estab [facility], [facility], [address], [place], [address], [place] tel:[phone] [facility] No Information 3 No Information Referring Provider: Aneta Wright, [address] [place], [address]. tel:[phone] Offic/outpt E&m Estab [facility], [facility], [address], [place], [address], [place] tel:[phone] [facility] No Information 2 No Information Referring Provider: Aneta Wright, [address] [place], [address]. tel:[phone] Offic/outpt E&m Estab [facility], [facility], [address], [place], [address], tel:[phone] [facility] No Information 2 No Information Referring Provider: nAeta Wright, [address] [facility], [place], [address]. tel:[phone] Offic/outpt E&m Estab [facility], [facility], [address], [place], [place], [address], [place] tel:[phone] [facility] No Information No Information Referring Provider: Aneta Wright, [address] [facility], [place], [address]. tel:[phone] Offic/outpt E&m Estab [facility], [facility], [address], [place], [place], [address], [place] tel:[phone] [facility] No Information No Information Referring Provider: Aneta Wright, [address] [facility], [place], [address]. tel:[phone] Offic/outpt E&m Estab [facility], [facility], [address], [place], [place], [address], [place] tel:[phone] [facility] No Information No Information Referring Provider: Aneta Wright, [address] [facility], [place], [address]. tel:[phone] Offic/outpt E&m Estab [facility], [facility], [address], [place], [place], [address], [place] tel:[phone] [facility] No Information No Information Referring Provider: Aneta Wright, [address] [facility], [place], [address]. tel:[phone] Offic/outpt E&m Estab Low [facility], [facility], [address], [place], [place], [address], [place] tel:[phone] [facility] No Information No Information Referring Provider: William Matthew, [address], [place], [address]. tel:[phone] Offic/outpt E&m Estab Mod [facility], [address], [place], [place], [address], [place] tel:[phone] [facility] No Information No Information Referring Provider: William Matthew, [address], [place], [address]. tel:[phone] Offic/outpt E&m Estab Mod [facility], [address], [place], [place], [address], [place] tel:[phone] [facility] No Information No Information Referring Provider: William Matthew, [address], [place], [address]. tel:[phone] Offic/outpt E&m Estab Low [facility], [address], [place], [place], [address], [place] tel:[phone] [facility] No Information No Information Referring Provider: William Matthew, [address], [place], [address]. tel:[phone] [facility], [address], [place], [place], [address], [place] tel:[phone] [facility] No Information No Information Referring Provider: William Matthew, [address], [place], [address]. tel:[phone] [facility], [address], [place], [place], [address], [place] tel:[phone] [facility] No Information 1 [employer] [place]. [address] [facility] [address], [place], [address], [place]. tel:[phone] Referring Provider: William Matthew, [address], [place], [address]. tel:[phone] [facility], [facility], [address], [place], [place], [address], [place] tel:[phone] [facility] No Information 1 [employer] [place]. [address] [facility] [address], [place], [address], [place]. tel:[phone] Referring Provider: William Matthew, [address], [place], [address]. tel:[phone] [facility], [address], [place], [place], [address], [place] tel:[phone] [facility] No Information 1 [employer] [place]. [address] [facility] [address], [place], [address], [place]. tel:[phone] Referring Provider: William Matthew, [address], [place], [address]. tel:[phone] [facility], [address], [place], [place], [address], [place] tel:[phone] [facility] No Information 1 [employer] [place]. [address] [facility], [place], [address], [place]. tel:[phone] Referring Provider: William Matthew, [address], [place], [address]. tel:[phone] [facility], [facility], [address] , [place], [place], [address], [place] tel:[phone] [facility] No Information 1 No Information Referring Provider: William Matthew, [address], [place], [address]. tel:[phone] Offic/outpt E&m Estab Low-mod [facility], [facility], [address], [place], [place], [address], [place] tel:[phone] [facility] No Information 0 Bobo Treadwell. [address] [address], [place], [address], [place]. tel:[phone] Referring Provider: William Matthew, [address], [place], [address]. tel:[phone] , [address] , [place], [place], [address], [place] tel:[phone] [facility] No Information 0 Ravin Rider. [address] , [address], [place], [address], [place]. tel:[phone] Referring Provider: William Matthew, [address], [place], [address]. tel:[phone] , [address], [place], [place], [address], [place] tel:[phone] [facility] No Information 0 Kiley Masters. [address] [place], [place], [address], [place]. tel:[phone] Referring Provider: William Matthew, [address], [place], [address]. tel:[phone] [facility], [address], [place], [place], [address], [place] tel:[phone] [facility] No Information 4 0 Ravin Rider. [address], [place], [address], [place]. tel:[phone] Referring Provider: William Matthew, [address], [place], [address]. tel:[phone] [facility], [address], [place], [place], [address], [place] tel:[phone] [facility] No Information 3 0 Ravin Rider. [address], [place], [address], [place]. tel:[phone] Referring Provider: William Matthew, [address], [place], [address]. tel:[phone] [facility], [address], [place], [place], [address], [place] tel:[phone] [facility] No Information 0 Ravin Rider. [address], [place], [address], [place]. tel:[phone] Referring Provider: William Matthew, [address], [place], [address]. tel:[phone] [facility], [address], [place], [place], [address], [place] tel:[phone] [facility] No Information 0 Ravin Phillip [address], [place], [address], [place]. tel:[phone] Referring Provider: William Matthew, [address], [place], [address]. tel:[phone] Offic/outpt E&m Estab Mod-hi 2 [facility], [address], [place], [place], [address], [place] tel:[phone] [facility] No Information 0 Rvain Rider. [address], [place], [address], [place]. tel:[phone] Referring Provider: William Matthew, [address], [place], [address]. tel:[phone] Offic/outpt E&m Estab Low-mod [facility], [facility], [address], [place], [place], [address], [place] tel:[phone] [facility] No Information 0 Ravin Rider. [address] , [address], [place], [address], [place]. tel:[phone] Referring Provider: William Matthew, [address], [place], [address]. tel:[phone] Offic/outpt E&m Estab Minor 10 [facility], [address], [place], [place], [address], [place] tel:[phone] [facility] No Information 0 Bobo Treadwell. [address] [facility] [address], [place], [address], [place]. tel:[phone] Referring Provider: William Matthew, [address], [place], [address]. tel:[phone] Offic/outpt E&m Estab Minor 10 [facility], [facility], [address] [facility] [address], [place], [place], [address], [place] tel:[phone] [facility] No Information 3-201 0 [employer] [place]. [address] [facility] [address], [place], [address], [place]. tel:[phone] Referring Provider: William Matthew, [address], [place], [address]. tel:[phone] Offic/outpt E&m Estab Minor 10 [facility], [facility], [address] [facility] [address], [place], [place], [address], [place] tel:[phone] [facility] No Information 6-201 0 [employer] [place]. [address] [facility] [address], [place], [address], [place]. tel:[phone] Referring Provider: William Matthew, [address], [place], [address]. tel:[phone] Offic/outpt E&m Estab Mod-hi 2 [facility], [facility], [address] [facility] [address], [place], [place], [address], [place] tel:[phone] [facility] No Information 1200 9 [employer] [place]. [address] [facility] [address], [place], [address], [place]. tel:[phone] Referring Provider: William Matthew, [address], [place], [address]. tel:[phone] Offic/outpt E&m Estab Low-mod [facility], [facility], [address] [facility] [address], [place], [place], [address], [place] tel:[phone] [facility] No Information 7-200 9 [employer] [place]. [address] [facility] [address], [place], [address], [place]. tel:[phone] Referring Provider: William Matthew, [address], [place], [address]. tel:[phone] Offic/outpt E&m Estab Low-mod [facility], [facility], [address] [facility] [address], [place], [place], [address], [place] tel:[phone] [facility] No Information 3200 9 [employer] [place]. [address] [facility] [address], [place], [address], [place]. tel:[phone] Referring Provider: William Matthew, [address], [place], [address]. tel:[phone] Offic/outpt E&m Estab Low-mod [facility], [facility], [address] [facility] [address], [place], [place], [address], [place] tel:[phone] [facility] No Information 5200 9 Mey Edwards. [address] [place], [address], [place]. Referring Provider: William Matthew, [address], [place], [address]. tel:[phone] Offic/outpt E&m Estab Low-mod [facility], [facility], [address] [facility] [address], [place], [place], [address], [place] tel:[phone] [facility] No Information 3 0-200 9 [employer] [place]. [address] [facility] [address], [place], [address], [place]. tel:[phone] Referring Provider: William Matthew, [address], [place], [address]. tel:[phone] Offic/outpt E&m Estab Low-mod [facility], [facility], [address], [place], [place], [address], [place] tel:[phone] [facility] No Information 5-200 9 [employer] [place]. [address] [facility] [address], [place], [address], [place]. tel:[phone] Referring Provider: William Matthew, [address], [place], [address]. tel:[phone] Offic/outpt E&m Estab Low-mod [facility], [facility], [address] [facility] [facility] , [place], [place], [address], [place] tel:[phone] [facility] No Information 8-200 9 [employer] [place]. [address] [facility] [address], [place], [address], [place]. tel:[phone] Referring Provider: William Matthew, [address], [place], [address]. tel:[phone] Offic/outpt E&m Estab Low-mod [facility], [facility], [address], [place], [place], [address], [place] tel:[phone] [facility] No Information 3-200 8 [employer] [place]. [address] [facility] [address], [place], [address], [place]. tel:[phone] Referring Provider: William Matthew, [address], [place], [address]. tel:[phone] Offic/outpt E&m Estab Low-mod [facility], [address], [place], [place], [address], [place] tel:[phone] [facility] No Information 9 8 Ravin Rider. [address], [place], [address], [place]. tel:[phone] Referring Provider: William Matthew, [address], [place], [address]. tel:[phone] Offic/outpt E&m Estab Low-mod [facility], [facility], [address], [place], [place], [address], [place] tel:[phone] [facility] No Information 5 8 Ravin Rider. [address], [place], [address], [place]. tel:[phone] Referring Provider: William Matthew, [address], [place], [address]. tel:[phone] Offic/outpt E&m Estab Low-mod [facility], [facility], [address], [place], [address], [place] tel:[phone] [facility] No Information 8 Ravin Rider. [address], [place], [address], [place]. tel:[phone] Referring Provider: William Matthew, [address], [place], [address]. tel:[phone] Offic/outpt E&m Estab Low-mod [facility], [facility], [address], [place], [place], [address], [place] tel:[phone] [facility] No Information 0-200 8 Ravin Rider. [address], [place], [address], [place]. tel:[phone] Referring Provider: William Matthew, [address], [place], [address]. tel:[phone] Offic/outpt E&m Estab Low-mod [facility], [address], [place], [place], [address], [place] tel:[phone] [facility] No Information 2 8 Ravin Rider. [address], [place], [address], [place]. tel:[phone] Referring Provider: William Matthew, [address], [place], [address]. tel:[phone] Offic/outpt E&m Estab Low-mod [facility], [address], [place], [place], [address], [place] tel:[phone] [facility] No Information 8200 7 Ravin Rider. [address], [place], [address], [place]. tel:[phone] Referring Provider: William Matthew, [address], [place], [address]. tel:[phone] Offic/outpt E&m Estab Low-mod [facility], [address], [place], [place], [address], [place] tel:[phone] [facility] No Information 3200 7 Ravin Rider. [address], [place], [address], [place]. tel:[phone] Referring Provider: William Matthew, [address], [place], [address]. tel:[phone] Offic/outpt E&m Estab Low-mod [facility], [address], [place], [place], [address], [place] tel:[phone] [facility] No Information 7 Ravin Rider. [address], [place], [address], [place]. tel:[phone] Referring Provider: William Matthew, [address], [place], [address]. tel:[phone] Offic/outpt E&m Estab Low-mod [facility], [address], [place], [place], [address], [place] tel:[phone] [facility] No Information 7 Ravin Rider. [address], [place], [address], [place]. tel:[phone] Referring Provider: William Matthew, [address], [place], [address]. tel:[phone] Offic/outpt E&m Estab Low-mod [facility], [address], [place], [place], [address], [place] tel:[phone] [facility] No Information 7 Ravin Rider. [address], [place], [address], [place]. tel:[phone] Referring Provider: William Matthew, [address], [place], [address]. tel:[phone] Offic/outpt E&m Estab Low-mod [facility], [address], [place], [place], [address], [place] tel:[phone] [facility] No Information 7 Ravin Rider. [address] [facility], [address], [place], [address], [place]. tel:[phone] Referring Provider: William Matthew, [address] [facility] [address], [place], [address]. tel:[phone] Offic Cons New/estab Mod-hi 60 [facility], [address] [facility], [place], [address], tel:[phone] [facility] No Information 7 Ravin Rider. [address] [facility], [facility] [address], [place], [address], [place]. tel:[phone] Referring Provider: William Matthew, [address] [facility] [address], [place], [facility]. tel:[phone] Family History Family Member Type Diagnosis Age At Onset No Information Payers Payer name Insurance type Covered republican ID Authoriza tion(s) No Information Social History Type Description Quantity Date Captured Comments Alcohol Use Details Unknown Caffeine Use Details Unknown Tobacco Use Status No Information Smoking Status No Information Sex Female Chief Complaint And Reason For Visit No Information Reason For Referral Reason For Referral No Information History Of Present Illness Encounter Date Complaint History Of Prese nt Illness No Information Functional Status Date Functional Assessmen t No Information Instructions Date Instruction Additional Infor mation No Information Assessments Type Assessment Date No Information Patient Care Teams Name Effective Dates (start - stop) Status Members No Information
--- OUTSIDE RECORDS SUMMARY | 2024-10-24 13:10 | XMS_ITS | Encounter Summary ---
Author Organization [facility] Address [address] [place] [address] Care Team Providers Care Hearing Impaired Itinerant Teacher Name Role Phone Devon Esquivel PA-C Primary Care Provider [phone] Devon Esquivel PA-C Unavailable [phone] Maddie Holden Asya JUNIOR ACCOUNTING CLERK CRISIS INTERVENTION COUNSELOR Unavailable [phone] Sinyigaya, Speciose SALES AGENT FIRE INSURANCE Unavailable [phone] No Ref-Primary, Physician Primary Care Provider Sinyigaya, Speciose SALES AGENT [employer] INSURANCE Unavailable [phone] Encounter Details Date Type Department Care Team (Late st Contact Info) Description 12/23/2022 MyC Medical Advice [facility] [place] [address] [place] [address] Sinyigaya, Speciose, SALES AGENT [employer] [address] [place] [address] Social History Tobacco Use Types Packs/Day Years Used Date Smoking Tobacco: Every Day Cigarettes Smokeless Tobacco: Never Comments:Trying to quit. 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 No / Unsure 12/23/2022 11:22 AM CDT documented as of this encounter Plan of Treatment Not on file documented as of this encounter Visit Diagnoses Not on filedocumented in this encounter Additional Health Concerns Assessment Noted Time PHQ-9 Depression Total Score: 10 11/17/ 023 10:44 PM CDT documented as of this encounter Care Teams Hearing Impaired Itinerant Teacher Relationship Specialty Start Date End Date Devon Esquivel PA-C [address] [place] [address] PCP - General Family Medicine 12/31/21 08/24/23 No Ref-Primary, Physician PCP - General 08/29/23 Devon Esquivel PA-C [address] [place] [address] Assigned PCP 12/03/21 Maddie Holden APRN CRISIS INTERVENTION COUNSELOR [address] [place], [place] [address] Assigned Pain Medication Provider 06/21/22 03/04/24 Keila Saunders LICSW [address] [place] [address] Production Engine Repairer Production Engine Repairer - Clinical 09/02/22 Keila Saunders LICSW [address] [place] [address] Assigned Behavioral Health Provider 10/04/23 08/04/24 documented as of this encounter
--- OUTSIDE RECORDS SUMMARY | 2024-10-24 13:10 | XMS_ITS | Encounter Summary ---
Author Organization [facility] Address [address] [place] [address] Care Team Providers Care Hack Driver Name Role Phone Devon Esquivel PA-C Primary Care Provider [phone] Devon Esquivel PA-C Unavailable [phone] Maddie Holden Asya DANDY TENDER QUALIFIED CRAFT WORKER ELECTRICIAN Unavailable [phone] Sinyigaya, Speciose CUSTOMS PORT DIRECTOR Unavailable [phone] No Ref-Primary, Physician Primary Care Provider Sinyigaya, Speciose CUSTOMS PORT DIRECTOR Unavailable [phone] Encounter Details Date Type Department Care Team (Late st Contact Info) Description 12/23/2022 MyC Medical Advice [facility] [place] [address] [place] [address] Sinyigaya, Speciose, CUSTOMS PORT DIRECTOR 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 [place] [address] [address] Light Cleaner - Clinical 09/02/22 Keila Saunders LICSW [address] [place] [address] Assigned Behavioral Health Provider 10/04/23 08/04/24 documented as of this encounter
--- OUTSIDE RECORDS SUMMARY | 2024-10-24 13:10 | XMS_ITS | Patient Health Record ---
Author Organization [facility] Address [address] [place] [address] [address] [place] [address] Care Team Providers Care Screedman/Laborer Name Role Phone Clarke Pereyra Primary Care Provider PepeEleazar Unavailable [phone] Allergies Allergen (clinical drug ingredient) Drug/Non Drug Allergy documented on EMR Reaction Allergy Type Onset Date Status hydroxyzine hydrOXYzine HCl Unknown Drug Allergy Active ibuprofen Ibuprofen Unknown Drug Allergy Active morphine Morphine Unknown Drug Allergy Active pregabalin Pregabalin Unknown Drug Allergy Activ e Substance with sulfonamide structure and antibacterial mechanism of action (substance) Sulfa Antibiotics Unknown Drug Allergy Active Reason For Referral No Information Medications Medication SIG (Take, Route, Frequency, Duration) Notes Start Date End Date Status Gabapentin 300 MG 1 capsule Oral Three times a day for 30 days Active oxyCODONE HCl 5 MG 1 tablet as needed Orally (ok to fill 11/10/23) every 8 hours for 13 days G89.29, M54.50 11/10/2023 Active cloNIDine HCl 0.1 MG 1 tablet Orally as needed for withdrawal symptoms at bedtime for 30 days Active tiZANidine HCl 2 MG Oral for 5 Days Active Social History Tobacco Use: Social History Observation Description Date Details (start date - stop date) Current Smoker NA - NA Tobacco Use/Smoking: Question Answer Notes Are you a current smoker How often do you smoke cigarettes? every day How many cigarettes a day do you smoke? 11-20 How soon after you wake up d o you smoke your first cigarette? after 60 minutes Are you interested in quitting? Thinking about q uitting Alcohol Screen Question Answer Notes Did you have a drink contain ing alcohol in the past year? Yes How often did you have a dri nk containing alcohol in the past year? Monthly or less (1 point) Points 1 Interpretation Negative Problems Problem Type SNOMED Code ICD Code Onset Dates Problem Status W/U Status Risk Notes Problem Opioid dependence (90923142) Opioid dependence, uncomplicated (F11.20) Active confirmed Problem Chronic pain (55007483) Other chronic pain (G89.29) Active confirmed Problem Right hip pain (770702812859477) Pain in right hip (M25.551) Active confirmed Problem Arthralgia of the lower leg (340862484) Pain in right knee (M25.561) Active confirmed Problem Fibromyalgia (391953634) Fibromyalgia (M79.7) Active confirmed Problem High risk drug monitoring status (704388971) FPC (current) use of opiate analgesic (Z79.891) Active confirmed Problem Carpal tunnel syndrome (08550587) Carpal tunnel syndrome, bilateral upper limbs (G56.03) Active confirmed Problem Cervicalgia (37414066) Cervicalgia (M54.2) Active confirmed Problem Low back pain (951105437) Low back pain, unspecified (M54.50) Active confirmed Problem Solitary sacroiliitis (454701666) Sacroiliitis (M46.1) Active confirmed Problem Cervical radiculopathy (82466047) Cervical radiculopathy (M54.12) Active confirmed Problem Cervical spondylosis (709039671) Cervical spondylosis (M47.812) Active confirmed Vital Signs Blood pressure diastolic 86 mm Hg 11/08/2023 Height 63 in 11/08/2023 Blood pressure systolic 132 mm Hg 11/08/2023 Weight 135 lbs 11/08/2023 BMI 23.91 kg/m2 11/08/2023 Encounters Encounter Location Date Provider Diagnosis [facility] [address] [facility] [address] [place] [address] [facility] [address] [place] [address] 11/08/2023 Eleazar Cantu Other chronic pain G89.29 ; Cervicalgia M54.2 and Pain in right hip M25.551 Assessments Encounter Date Diagnosis (ICD Code) Assessment Notes Treatment Notes Treatment Clinical Notes Section Notes 11/08/2023 Other chronic pain (ICD-10 - G89.29) Maki presents to the clinic for an evaluation regarding her chronic pain. I have reviewed her symptoms and current medications. Maki will proceed with her right hip xray at this time through [facility] for further evaluation of her right hip pain. She will call for a follow up to review with Shree. Regarding medications, I checked the [facility] database, finding no inconsistencies. I instructed Maki to proceed with her currently scheduled appointment at [facility] on 11/24/2023 and have then assumed her medication at this time. I will refill her Gabapentin at this time since she notes ongoing pain relief from this medication at this time. I also will refill her Oxycodone at this time for 13 days until she is able to see [facility] on 11/23 and have them assume her medication. This treatment plan was reviewed with Maki, and she was agreeable. She will return as needed further evaluation. I will continue to monitor her progress, adjusting her treatment plan as necessary. Plan:1. Proceed with right hip XR at [facility] as able2. Proceed with [facility] Appointment on . Refill Gabapentin 4. Refill Oxycodone for 13 days until [facility] Appointment5. Follow up as needed Discharge instructions reviewed verbally. Discussed the risks/benefits of prescribed medication. The patient was instructed to return to the office as scheduled and call with any questions, problems or concerns. 11/08/2023 Cervicalgia (ICD-10 - M54.2) 11/08/2023 Pain in right hip (ICD-10 - M25.551) 11/08/2023 Other I, Bailey Pruitt, am serving as a scribe to document services personally performed by Eleazar Cantu CNP, based upon my observations and the provider's statements to me. All documentation has been reviewed by the aforementioned ABIODUN as well as Rosalio Mcdonald MD, prior to being entered into the official medical record. I, Rosalio Mcdonald MD attest that the above named individual is acting in scribe capacity, has observed Eleazar Cantu's performance of the services and has documented them in accordance with her direction. The documentation recorded by the scribe accurately reflects the service Eleazar Cantu CNP and Rosalio Mcdonald MD personally performed and the decisions made by them. Plan Of Treatment Pending Test Test Name Order Date X ray : Hip, right, 2 views 09/08/2023 Insurance Providers Payer Name Payer Address Payer Phone Subscriber Number Group Number Insured Name Patient Relationship to Insured Coverage Start Date Coverage End Date [employer] Blue Plus PMAP [address] [address] [place] [address] [id number] Maki Yost Self - patient is the insured Medical (General) History Medical History History ICD Code Asthma Fibromyalgia Headaches Surgical History Surgery Date(Month/Year) L4-5 fusion 2005 Hospitalization History Reason Date(Month/Year) Surgical
--- OUTSIDE RECORDS SUMMARY | 2024-10-24 13:11 | XMS_ITS | Continuity of Care Document ---
Author Organization [facility] Address [address] [place] [address] Phone Care Team Providers Care Arbor End Mainspring Former Name Role Phone Will Osorio SAINI Unavailable Unavailabl e Advance Directives Directive Yes / No Effective Date File Name No Information Encounters Encounter Description Practice Location Reason(s) For Visit Diagnoses Date Provider Providers Copied on Encounter [facility], [address] [place] [address], [id number], [place] tel:[phone] [facility] [place] No Information Will Osorio. [address] [place], [place], [id number], [place]. tel:[phone] Family History Family Member Type Diagnosis Age At Onset No Information Payers Payer name Insurance type Covered libertarian ID Authoriza tion(s) No Information Social History Type Description Quantity Date Captured Comments Alcohol Use Details Unknown Caffeine Use Details Unknown Tobacco Use Status No Information Smoking Status No Information Sex Female Chief Complaint And Reason For Visit No Information Reason For Referral Reason For Referral No Information Plan Of Treatment Date Type Action Status Goal Height. Due on d ue Goal CT-Colonography. Due on due Goal Hepatitis C screening. Due o n due Goal PHQ-9. Due on du e Goal Zoster vaccine (1st). Due on due Goal FIT. Due on due Goal Review Allergy List. Due on due Goal FIT-DNA. Due on due Goal HPV. Due on due Goal Tobacco Use. Due on due Goal Weight. Due on d ue Goal Lipid panel. Due on due Goal Update Social History. Due o n due Goal Unhealthy drug use screening . Due on due Goal Medication Reconciliation. D ue on due History Of Present Illness Encounter Date Complaint History Of Prese nt Illness No Information Functional Status Date Functional Assessmen t No Information Instructions Date Instruction Additional Infor mation No Information Assessments Type Assessment Date No Information Patient Care Teams Name Effective Dates (start - stop) Status Members No Information
--- OUTSIDE RECORDS SUMMARY | 2024-10-24 13:11 | XMS_ITS | Encounter Summary ---
Author Organization [facility] Address [address] [place] [address] Care Team Providers Care Field Services Director Name Role Phone eDvon Esquivel PA-C Primary Care Provider [phone] Devon Esquivel PA-C Unavailable [phone] Maddie Holden APRN TRUCK DRIVER HEAVY Unavailable [phone] Sinyigaya, Speciose TOUCH UP CARVER Unavailable [phone] No Ref-Primary, Physician Primary Care Provider Sinyigaya, Speciose TOUCH UP CARVER Unavailable [phone] Encounter Details Date Type Department Care Team (Late st Contact Info) Description 02/07/2023 MyC Medical Advice [address] [address] Gladys Glover MA Social History Tobacco Use Types Packs/Day Years Used Date Smoking Tobacco: Every Day Cigarettes Smokeless Tobacco: Never Comments:Trying to quit. Alcohol Use Standard Drinks/Week Comments Not Currently 0 (1 standard drink = 0.6 oz pur e alcohol) PHQ-2 Answer Date Recorded PHQ-2 Total Score (Adult) - Positive if 3 or more points; Administer PHQ-9 if positive 2 01/23/2023 Comments No Sex and Gender Information Value Date Recorded Sex Assigned at Not on file Legal Sex Female 3:20 AM PHARMACY RETAIL SUPPORT SPECIALIST Gender Identity Not on file Sexual Orientation [...] Time PHQ-9 Depression Total Score: 7 01/24/20 23 10:35 PM CDT documented as of this encounter Care Teams Field Services Director Relationship Specialty Start Date End Date Devon Esquivel PA-C [address] [place] [address] PCP - General Family Medicine 12/31/21 08/24/23 No Ref-Primary, Physician PCP - General 08/29/23 Devon Esquivel PA-C [address] [place] [address] Assigned PCP 12/03/21 Maddie Holden APRN CNP [address] [place] [address] Assigned Pain Medication Provider 06/21/22 03/04/24 Keila Saunders LICSW [address] [place] [address] Pain Coordinator Pain Coordinator - Clinical 09/02/22 Keila Saunders TOUCH UP CARVER [address] [place] [address] Assigned Behavioral Health Provider 10/04/23 08/04/24 documented as of this encounter
--- OUTSIDE RECORDS SUMMARY | 2024-10-24 13:11 | XMS_ITS | Clinical Summary ---
Author Organization [facility] Address [address] [place] [address] Care Team Providers Care Tea Leaf Reader Name Role Phone Reno Burciaga SEWING MACHINE OPERATOR PLASTIC ZIPPER Unavailable [phone] Pcp, No Primary Care Provider Unavailabl e Allergies Active Allergy Reactions Criticality Noted Date Comments Ibuprofen Cough 03/27/2008 Morphine Headache 09/29/2009 Pregabalin Tongue Swelling High 04/13/2024 Propranolol Other - Describe In Comment Field 08/29/2023 Patient reports significant reaction including cardiac event from this medication. Sulfa (Sulfonamide Antibiotics) Rash 03/27/2008 Medications oxyCODONE (OXYCONTIN) 20 mg CR tablet Take 1 tablet by mouth every 8 hours. 0 2 Active gabapentin (NEURONTIN) 300 mg capsule Take 2 capsules by mouth at bedtime. 0 2 Active traZODone (DESYREL) 50 mg tablet TK 1 TO 2 TS PO 1 HOUR BEFORE BED UTD 1 6 Active Belbuca [address] 600 mcg in mouth, between cheek & gum every 12 hours. 4 Active cholecalciferol (Vitamin D) 1,000 unit capsule Take 1 Capsule (1,000 units) by mouth once daily. 4 Active oxyCODONE (ROXICODONE) 5 mg immediate release tabletIndications:C hronic right-sided low back pain with right-sided sciatica,Degenerati on of intervertebral disc of lumbosacral region with discogenic back pain and lower extremity pain Take one tab by mouth as needed for break through pain. No more than 2-3 tabs daily. 10 Tablet 5 Active Active Problems Problem Noted Date Diagnosed Date Pap smear for cervical cancer screening 07/03/19 25 Overview (07/03/2024): 06/2024 NIL/HPV negative Plan: Pap/HPV due 06/2029 Opioid type dependence, continuous 11/17/2023 Overview (11/17/2023): Created by Conversion Degeneration of lumbar or lumbosacral interverte bral disc 11/17/2023 Overview (11/17/2023): Created by Conversion Bilateral low back pain with right-sided sciatic a 11/17/2023 Overview (11/17/2023): Created by Conversion Insomnia, unspecified 05/19/2011 Overview (05/19/2011): Taking ambien, needs to be followed with visits every 3 months Pain medication agreement 08/19/2010 Overview (08/19/2010): [facility] pain clinic Has narcotic agreement with this pain clinic. Consult note is present in Epic. Tobacco dependence 03/16/2010 Incidental lung nodule 03/16/2010 Chronic back pain Overview (10/05/2011): goes to [facility] clinic, they prescribe meds Encounters Date Type Department Care Team Description 07/27/2024 Telephone [facility] [address] [place] [address] Temi Martinez PA Referral (location ) from Last 3 Months Immunizations Immunization Administration Dates Next Due Influenza, IIV3 (Age >=3 years) 04/16/2010,03/14 Td (Age >=7 Years) 02/19/2000 Td, Preservative Free (age >= 7 Years) 1 Family History Medical History Relation Name Comments Other Father Parkinson's Relation Name Status Comments Father Social History Tobacco Use Types Packs/Day Years Used Date Smoking Tobacco: Every Day Cigarettes 1 8 Passive Smoke Exposure: Past Smokeless Tobacco: Never Tobacco Cessation:Ready to Q uit: Not Asked; Counseling Given: Not Answered Comments:pamphlet given 05/18/2011 Alcohol Use Standard Drinks/Week Comments Yes 0 (1 standard drink = 0.6 oz pur e alcohol) occ - 2-3 drinks on a Tuesday Social Connections Answer Date Recorded Do you often feel lonely or isolated from those around you? 0 06/22/2024 Financial Resource Strain Answer Date R ecorded Difficulty of Paying Living Expenses 3 04/13/2024 Difficulty of Paying Living Expenses Not on file 04/13/2024 Food Insecurity Answer Date Recorded Do you worry your food will run out before you are able to buy more? 1 06/22/2024 Transportation Needs Answer Date Record ed Does lack of transportation keep you from medica l appointments? 1 06/22/2024 Does lack of transportation keep you from work, meetings or getting things that you need? 1 06/22/2024 Housing Stability Answer Date Recorded What is your housing situation today? 1 06/22/2024 Utilities Answer Date Recorded Do you have trouble paying f or utilities (for example, heat, electricity, water, phone)? 1 06/22/2024 Comments No Sex and Gender Information Value Date Recorded Sex Assigned at Not on file Legal Sex Female 5:29 AM WET PLANT OPERATOR Gender Identity Not on file Sexual Orientation Not on file Obstetrics History Para Term AB IAB SAB Ectopic Multiple Livin g Live Births 8 6 6 2 Date Outcome GA Total Labor Labor/2nd/3rd Weight Sex Type Anes PTL Kristen A1 A5 Name Clin SAB SAB SAB SAB SAB SAB Last Filed Vital Signs Vital Sign Reading Time Taken Comments Blood Pressure 118/88 06/22/2024 12:55 PM WET PLANT OPERATOR Pulse 91 06/22/2024 12:55 PM WET PLANT OPERATOR Temperature 37.1 C (98.8 F) 08/16/2016 8:55 AM WET PLANT OPERATOR Respiratory Rate 16 06/22/2024 12:55 PM WET PLANT OPERATOR Oxygen Saturation 92% 06/22/2024 12:55 PM WET PLANT OPERATOR Inhaled Oxygen Concentration - - Weight 60.1 kg (132 lb 9.6 oz) 06/22/2024 12:55 PM WET PLANT OPERATOR Height 161.2 cm (5' 3.47) 06/22/2024 12:[address] Body Mass Index 23.15 06/22/2024 12:55 PM WET PLANT OPERATOR Plan of Treatment Health Maintenance Due Date Last Done Comments Tdap 1981 Depression screening for age 12+ 1982 HIV for age 15-65 1985 Hepatitis C screening for age 18-79 1988 Pneumococcal series for age 50+ (1 of 2 - PCV) 1989 Colonoscopy through age 75 2015 Lipids for age 45-75 2015 03/14/2003, 03/14/20 03 Mammogram for age 45-75 2015 Zoster (shingles) series for age 50+ (1 of 2) 2020 COVID-19 vaccine series ( season) 2024 Influenza Vaccine (Season Ended) 2025 04/16/20 10, 03/14/2003 BMI (ht and wt on same day) for age 18+ 06/22/2025 06/22/2024, 08/16/2016 Pap test for age 21-65 06/22/2029 06/22/2024, 2024 Tetanus booster 12/12/2030 12/12/2020, 06/13 (Completed outside of [facility]), 02/19/2000 Procedures Procedure Name Priority Date/Time Associated Diagnosis Comments HPV HIGH RISK Routine 06/22/2024 1:47 PM WET PLANT OPERATOR Screening for cervical cancer CHOLESTEROL,TOTAL Routine 03/14/2003 10: 34 AM CDT from Last 3 Months or Most Recently Relevant to Health Maintenance Results * HPV HIGH RISK (06/22/2024 1:47 PM WET PLANT OPERATOR) TYPE 16 Negative Negative 06/26/2024 2:47 PM WET PLANT OPERATOR [facility] TYPE 18 Negative Negative 06/26/2024 2:47 PM WET PLANT OPERATOR [facility] OTHER HIGH RISK TYPES Negative Negative 06/26/2024 2:47 PM WET PLANT OPERATOR [facility] Other (Cervical) Non-Blood / Unknown 06/22/2024 1:47 PM WET PLANT OPERATOR 06/25/2024 9:38 AM WET PLANT OPERATOR Narrative [facility] - 06/26/2024 2:47 PM WET PLANT OPERATOR HPV types 16, 18, 31, 33, 35, 39, 45, 51, 52, 56, 58, 59, 66 and 68 DNA were undetectable or below the pre-set threshold. Methodology: Eleazar Wilfredo 4800 HPV Test Temi MCCABE MICROBIOLOGY Final Result [facility] [address] [place] [address], * CHOLESTEROL,TOTAL (03/14/2003 10:34 AM CDT) CHOLESTEROL,TOT AL 165 110 - 199 mg/dL 03/14/2003 10:3 4 AM CDT Narrative 11/21/2003 7:30 AM CDT Ordered by an unspecified provider. Other Clinical Staff CHEMISTRY Final Resul t from Last 3 Months or Most Recently Relevant to Health Maintenance Insurance [facility] Care Teams Tea Leaf Reader Relationship Specialty Start Date End Date Pcp, No . PCP - General 08/04/16 Reno Burciaga NP Pain Management Pain Management 05/18/11
--- OUTSIDE RECORDS SUMMARY | 2024-10-24 13:11 | XMS_ITS | Encounter Summary ---
Author Organization [facility] Address [address] [place] [address] Care Team Providers Care Center Hole Reamer Name Role Phone Devon Esquivel PA-C Primary Care Provider [phone] Devon Esquivel PA-C Unavailable [phone] Maddie Holden APRN DIRECTOR OF EDUCATION Unavailable [phone] Sinyigaya, Speciose DRAGSAW OPERATOR Unavailable [phone] No Ref-Primary, Physician Primary Care Provider Sinyigaya, Speciose DRAGSAW OPERATOR Unavailable [phone] Encounter Details Date Type Department Care Team (Late st Contact Info) Description 02/16/2023 [facility] Talisha Matthew [address] [address] Shy Butcher Social History Tobacco Use Types Packs/Day Years [...] on file Legal Sex Female 3:20 AM HARD 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 [place] [address] Timber Deadener Timber Deadener - Clinical 09/02/22 Keila Saunders LICSW [address] [place] [address] Assigned Behavioral Health Provider 10/04/23 08/04/24 documented as of this encounter
--- OUTSIDE RECORDS SUMMARY | 2024-10-24 13:11 | XMS_ITS ---
Author Organization [facility] Address [address] [place] [address] [address] [place] [address] Care Team Providers Care Hazmat Cdl Driver Name Role Phone Clarke Pereyra Primary Care Provider REASON FOR VISIT FYI xr results Encounters Encounter Location Date Provider Diagnosis [facility] [address] [place] [address] 12/09/2023 Clarke Pereyra Plan Of Treatment No Information Progress Notes * Gavi RAMIREZGhassanOB:1970 (53 yo F)Acc No.[id number]:12/09/2023 Patient: Maki Ross :1970 A ge:53 Y S ex:Female Phone: Address:[address] [place] [id number] * true * Date: Generated for Feii devin/Faobinnag/eTransmitting on: 0 10/24/2024 01:11 PM CDT
--- OUTSIDE RECORDS SUMMARY | 2024-10-24 13:11 | XMS_ITS | Encounter Summary ---
Author Organization [facility] Address [address] [place] [address] Care Team Providers Care Clinical Psychologist Name Role Phone Devon Esquivel PA-C Primary Care Provider [phone] Devon Esquivel PA-C Unavailable [phone] Maddie Holden APRN ASSEMBLY MACHINE FEEDER Unavailable [phone] Sinyigaya, Speciose SECURITY SYSTEMS ENGINEER Unavailable [phone] No Ref-Primary, Physician Primary Care Provider Sinyigaya, Speciose SECURITY SYSTEMS ENGINEER Unavailable [phone] Encounter Details Date Type Department Care Team (Late st Contact Info) Description 03/21/2023 MyC Medical Advice [facility] [place] [address] [place] [address] Sinyigaya, Speciose, SECURITY SYSTEMS ENGINEER [address] [place] [address] Social History Tobacco Use Types Packs/Day Years Used Date Smoking Tobacco: Every Day Cigarettes Smokeless Tobacco: Never Comments:Trying to quit. 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 Gender Identity Not on file Sexual Orientation Not on file documented as of this encounter Plan of Treatment Not on file documented as of this encounter Visit Diagnoses Not on filedocumented in this encounter Additional Health Concerns Assessment Noted Time PHQ-9 Depression Total Score: 7 01/24/20 23 10:35 PM CDT documented as of this encounter Care Teams Clinical Psychologist Relationship Specialty Start Date End Date Devon Esquivel PA-C [address] [place] [id number] PCP - General Family Medicine 12/31/21 08/24/23 No Ref-Primary, Physician PCP - General 08/29/23 Devon Esquivel PA-C [address] [place] [id number] Assigned PCP 12/03/21 Maddie Holden APRN ASSEMBLY MACHINE FEEDER [address] [place], [place] [id number] Assigned Pain Medication Provider 06/21/22 03/04/24 Keila Saunders LICSW [address] [place] [address] Attendant [employer] Service Store Attendant [employer] Service Store - Clinical 09/02/22 Keila Saunders LICSW [address] [place] [address] Assigned Behavioral Health Provider 10/04/23 08/04/24 documented as of this encounter
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
--- OUTSIDE RECORDS SUMMARY | 2024-10-24 13:11 | XMS_ITS | Encounter Summary ---
Author Organization [facility] Address [address] [place] [address] Care Team Providers Care Machine Setter And Repairer Name Role Phone Devon Eqsuivel PA-C Primary Care Provider [phone] Devon Esquivel PA-C Unavailable [phone] Maddie Holden APRN CLINICAL REHABILITATION LIAISON Unavailable [phone] Sinyigaya, [employer] EDITING INTERN Unavailable [phone] No Ref-Primary, Physician Primary Care Provider Sinyigaya, Speciose EDITING INTERN Unavailable [phone] Encounter Details Date Type Department Care Team (Late st Contact Info) Description 03/07/2023 MyC Medical Advice [facility] [place] [address] [place] [address] Sinyigaya, Speciose, EDITING INTERN 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 Gender Identity Not on file Sexual Orientation Not on file documented as of this encounter Plan of Treatment Not on file documented as of this encounter Visit Diagnoses Not on filedocumented in this encounter Additional Health Concerns Assessment Noted Time PHQ-9 Depression Total Score: 7 01/24/20 23 10:35 PM CDT documented as of this encounter Care Teams Machine Setter And Repairer Relationship Specialty Start Date End Date Devon Esquivel PA-C [address] [address] [place] [address] PCP - General Family Medicine 12/31/21 08/24/23 No Ref-Primary, Physician PCP - General 08/29/23 Devon Esquivel PA-C [address] [place] [address] Assigned PCP 12/03/21 Maddie Holden APRN CLINICAL REHABILITATION LIAISON [address] [place], [place] [address] Assigned Pain Medication Provider 06/21/22 03/04/24 Keila Saunders LICSW [address] [place] [address] Party Plan Sales Unit Advisor Party Plan Sales Unit Advisor - Clinical 09/02/22 Keila Saunders LICSW [address] [place] [address] Assigned Behavioral Health Provider 10/04/23 08/04/24 documented as of this encounter
--- OUTSIDE RECORDS SUMMARY | 2024-10-24 13:11 | XMS_ITS | Encounter Summary ---
Author Organization [facility] Address [address] [place] [address] Care Team Providers Care Proposal Coordinator Name Role Phone Devon Esquivel PA-C Primary Care Provider [phone] Devon Esquivel PA-C Unavailable [phone] Maddie Holden APRN CIRCUIT RIDER Unavailable [phone] Sinyigaya, Speciose MACHINE MAINTENANCE SERVICER Unavailable [phone] No Ref-Primary, Physician Primary Care Provider Sinyigaya, [employer]iose MACHINE MAINTENANCE SERVICER Unavailable [phone] Encounter Details Date Type Department Care Team (Late st Contact Info) Description 04/18/2023 MyC Medical Advice [address] [address] Mikael Santoro, [place] Social History Tobacco Use Types Packs/Day Years [...] on file Legal Sex Female 3:20 AM PST MANAGER Gender Identity Not on file Sexual Orientation Not on file documented as of this encounter Plan of Treatment Not on file documented as of this encounter Visit Diagnoses Not on filedocumented in this encounter Additional Health Concerns Assessment Noted Time PHQ-9 Depression Total Score: 7 01/24/20 23 10:35 PM CDT documented as of this encounter Care Teams Proposal Coordinator Relationship Specialty Start Date End Date Devon Esquivel PA-C [address] [place] [address] PCP - General Family Medicine 12/31/21 08/24/23 No Ref-Primary, Physician PCP - General 08/29/23 Devon Esquivel PA-C [address] [address] [place] [address] Assigned PCP 12/03/21 Maddie Holden APRN CNP [address] [place] [address] Assigned Pain Medication Provider 06/21/22 03/04/24 Keila Saunders LICSW [address] [place] [address] Health Director Health Director - Clinical 09/02/22 eKila Saunders LICSW [address] [place] [address] Assigned Behavioral Health Provider 10/04/23 08/04/24 documented as of this encounter
--- OUTSIDE RECORDS SUMMARY | 2024-10-24 13:11 | XMS_ITS | Encounter Summary ---
Author Organization [facility] Address [address] [place] [address] Care Team Providers Care Soft Work Wrapper Layer And Examiner Name Role Phone Odalys Phillips APRN PLUNKET NURSE Unavailable Mile Devon Rachel PA-C Primary Care Provider [phone] Devon Esquivel PA-C Unavailable [phone] Maddie Holden APRN PLUNKET NURSE Unavailable [phone] Sinyigaya, Speciose MANAGER SYSTEM Unavailable [phone] No Ref-Primary, Physician Primary Care Provider Sinyigaya, Speciose MANAGER SYSTEM Unavailable [phone] Reason for Visit * Reason Onset Date Comments Medication Request 02/08/2022 oxyCODONE (RO XICODONE) 5 MG tablet AND oxyCODONE (OXYCONTIN) 20 MG 12 hr tablet Encounter Details Date Type Department Care Team (Late st Contact Info) Description 02/08/2022 Telephone [facility] [address] [facility] [place] [address] Maddie Holden APRN PLUNKET NURSE [address] [place] [address] Medication Request (oxyCODONE (ROXICODONE) 5 MG tablet AND oxyCODONE (OXYCONTIN) 20 MG 12 hr tablet) [...] on file 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 Unable to assess 01/21/2023 11:09 AM CDT documented as of this encounter Miscellaneous Notes * Telephone Encounter - Viviane Lainez MD - 02/08/2022 3:42 PM CDT Signed Prescriptions: Disp Refills oxyCODONE (ROXICODONE) 5 MG tablet 120 ta*0 Sig: Take 1 tablet (5 mg) by mouth 4 times daily as needed (chronic pain) Dispense date: 02/12/22, start date: 02/14/22 Authorizing Provider: VIVIANE LAINEZ oxyCODONE (OXYCONTIN) 20 MG 12 hr tablet 60 tab*0 Sig: Take 1 tablet (20 mg) by mouth 2 times daily Dispense date: 02/12/22, start date: 02/14/22 Authorizing Provider: VIVIANE LAINEZ PRESCRIPTION CLERK reviewed. Signed for provider who is out of office. Viviane Lainez MD [facility] * Telephone Encounter - Kat Parker RN - 02/08/2022 3:29 PM CDT Received call from patient requesting refill Oxycodone 5 m01/13/22-30 days oxycontin 20 m01/13/22-30 days Patient's last office/virtual visit by prescribing provider on 01/01/22 Next office/virtual appointment scheduled for 04/02/22 UDT/CSA: 10/26/21 Pending Prescriptions: Disp Refills oxyCODONE (ROXICODONE) 5 MG tablet 120 ta*0 Sig: Take 1 tablet (5 mg) by mouth 4 times daily as needed (chronic pain) Dispense date: 02/12/22, start date: 02/14/22 oxyCODONE (OXYCONTIN) 20 MG 12 hr tablet 60 tab*0 Sig: Take 1 tablet (20 mg) by mouth 2 times daily Dispense date: 02/12/22, start date: 02/14/22 Segundo[facility]is * Telephone Encounter - Analia Velez - 02/08/2022 12:17 PM CDT [facility] Call [facility] Phone Message May a detailed message be left on voicemail: yes Reason for Call: Medication Refill Request Has the patient contacted the pharmacy for the refill? Yes Name of medication being requested: oxyCODONE (ROXICODONE) 5 MG tablet AND oxyCODONE (OXYCONTIN) 20 MG 12 hr tablet Provider who prescribed the medication: Pharmacy: [id number] - [place], [place] - [address] [place] Date medication is needed: 02/13/22 Action Taken: Message routed to: [facility] M[facility] Pain Travel Screening: Not Applicable documented in this encounter Plan of Treatment Not on file documented as of this encounter Visit Diagnoses Diagnosis Degeneration of lumbar or lumbosacral intervertebral disc documented in this encounter Care Teams Soft Work Wrapper Layer And Examiner Relationship Specialty Start Date End Date Devon Esquivel PA-C [address] [place] [address] PCP - General Family Medicine 12/31/21 08/24/23 No Ref-Primary, Physician PCP - General 08/29/23 Odalys Phillips APRN PLUNKET NURSE Assigned Behavioral Health Provider 01/11/21 12/17/22 Devon Esquivel PA-C [address] [place] [address] Assigned PCP 12/03/21 Maddie Holden APRN PLUNKET NURSE [address] [place] [address] Assigned Pain Medication Provider 06/21/22 03/04/24 Keila Saunders LICSW [address] [place] [address] Materials Engineer Materials Engineer - Clinical 09/02/22 Keila Saunders LICSW [address] [place] [address] Assigned Behavioral Health Provider 10/04/23 08/04/24 documented as of this encounter
--- OUTSIDE RECORDS SUMMARY | 2024-10-24 13:11 | XMS_ITS | Encounter Summary ---
Author Organization [facility] Address [address] [place] [address]. [place] [address] Care Team Providers Care Park Landscape Architect Name Role Phone Devon Esquivel PA-C Primary Care Provider [phone] Devon Esquivel PA-C Unavailable [phone] Maddie Holden APRN ELECTRONICS ENGINEERING PROFESSOR Unavailable [phone] Sinyigaya, Speciose CURRENCY MACHINE OPERATOR Unavailable [phone] No Ref-Primary, Physician Primary Care Provider Sinyigaya, Speciose CURRENCY MACHINE OPERATOR Unavailable [phone] Reason for Visit * Reason Comments Medication Refill Encounter Details Date Type Department Care Team (Late st Contact Info) Description 02/13/2023 Refill [facility] [address] [place] [address] Devon Esquivel PA-C [address] [place] [address] Medication Refill Social History Tobacco Use Types Packs/Day [...] on file 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 Unable to assess 01/21/2023 11:09 AM CDT documented as of this encounter Miscellaneous Notes * Telephone Encounter - Consuelo Daley - 03/02/2023 7:49 AM CDT Mailed Letter as final attempt to schedule. Carrie Boylemount Philosophy Lecturer * Telephone Encounter - Aylin Steinberg - 02/23/2023 10:40 AM CDT Unable to LVM requesting a call back for an appt. One more attempt will be made. Aylin Holcomb Lead Philosophy Lecturer * Telephone Encounter - Shy Butcher - 02/16/2023 1:18 PM CDT Sent [employer] message requesting a call back for an appt. Two more attempts will be made. Shy Severino Philosophy Lecturer * Telephone Encounter - Devon Esquivel PA-C - 02/16/2023 1:01 PM CDT Due for appointment. In person physical- please help schedule. Refilled Rx x 60 tabs. Devon * Telephone Encounter - Shaila Gardner RN - 02/16/2023 11:38 AM CDT Overdue for recheck Need Dx on problem list. Shaila Gardner RN documented in this encounter Plan of Treatment Not on file documented as of this encounter Visit Diagnoses Diagnosis Panic disorder with agoraphobia Agoraphobia with panic disorder documented in this encounter Additional Health Concerns Assessment Noted Time PHQ-9 Depression Total Score: 7 01/24/20 23 10:35 PM CDT documented as of this encounter Care Teams Park Landscape Architect Relationship Specialty Start Date End Date Devon Esquivel PA-C [address] [place] [address] PCP - General Family Medicine 12/31/21 08/24/23 No Ref-Primary, Physician PCP - General 08/29/23 Devon Esquivel PA-C [address] [place] [address] Assigned PCP 12/03/21 Maddie Holden APRN CNP [address] [place] [address] Assigned Pain Medication Provider 06/21/22 03/04/24 Keila Saunders LICSW [address] [place] [address] Porter Bath Porter Bath - Clinical 09/02/22 Keila Saunders LICSW [address] [place] [address] Assigned Behavioral Health Provider 10/04/23 08/04/24 documented as of this encounter
--- OUTSIDE RECORDS SUMMARY | 2024-10-24 13:11 | XMS_ITS | Encounter Summary ---
Author Organization [facility] Address [address] [place] [address]. [place] [address] Care Team Providers Care Thread Puller Name Role Phone Lisa Davey MD Primary Care Provider [phone] Odalys Phillips APRN LIBRARY SPECIALIST Unavailable Mile vailaDevon Reyes PA-C Primary Care Provider [phone] Devon Esquivel PA-C Unavailable [phone] Maddie Holden JTAC LIBRARY SPECIALIST Unavailable [phone] Sinyigaya, Speciose DIRECTOR OF COMMUNITY EDUCATION Unavailable [phone] No Ref-Primary, Physician Primary Care Provider Sinyigaya, Speciose DIRECTOR OF COMMUNITY EDUCATION Unavailable [phone] Encounter Details Date Type Department Care Team (Late st Contact Info) Description 04/06/2018 Records - [facility] CONVERSION Scan, Non-Provider Social History Tobacco Use Types Packs/Day Years Used Date Smoking Tobacco: Never Assessed Comments Unknown Sex and Gender Information Value Date Recorded Sex Assigned at Not on file 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 Gender Identity Not on file Sexual Orientation Not on file documented as of this encounter Plan of Treatment Not on file documented as of this encounter Visit Diagnoses Not on filedocumented in this encounter Care Teams Thread Puller Relationship Specialty Start Date End Date Lisa Davey MD PCP - General 11/08/13 12/30/21 Devon Esquivel PA-C [address] [place] [address] PCP - General Family Medicine 12/31/21 08/24/23 No Ref-Primary, Physician PCP - General 08/29/23 Odalys Phillips APRN LIBRARY SPECIALIST Assigned Behavioral Health Provider 01/11/21 12/17/22 Devon Esquivel PA-C [address] [address] Assigned PCP 12/03/21 Maddie Holden APRN LIBRARY SPECIALIST [address] [address] Assigned Pain Medication Provider 06/21/22 03/04/24 Keila Saunders LICSW [address] [place] [address] Silica Spray Mixer Silica Spray Mixer - Clinical 09/02/22 Keila Saunders LICSW [address] [place] [address] Assigned Behavioral Health Provider 10/04/23 08/04/24 documented as of this encounter
--- OUTSIDE RECORDS SUMMARY | 2024-10-24 13:11 | XMS_ITS ---
Author Organization [facility] Address [address] [place] [address] [address] [place] [address] Care Team Providers Care Die Fitter Name Role Phone Clarke Pereyra Primary Care Provider [phone] REASON FOR VISIT localright therapeutic SIJ injection Encounters Encounter Location Date Provider Diagnosis [address] [facility] [address] [facility] [address] [place] [address] 10/13/2023 Clarke Pereyra Sacroiliitis M46.1 Assessments Encounter Date Diagnosis (ICD Code) Assessment Notes Treatment Notes Treatment Clinical Notes Section Notes 10/13/2023 Sacroiliitis (ICD-10 - M46.1) Plan Of Treatment No Information Progress Notes * Gavi RAMIREZenDOB:1970 (53 yo F)Acc No.[id number]:10/13/2023 Patient: Maki Ross Provider: Gaye Pereyra M.D. :1970 A ge:53 Y S ex:Female Date:10/13/2023 Phone: Address:[address] [place] [id number] * Billing Information: * Visit Code: * Procedure Codes: 14071 Injection for SIJ arthrography. Modifiers: RT A4930 Gloves Sterile Per Pair. Units: 2.00. A4209 5 cc - 19 cc gauge syringe. A4215 Brea only Sterile any size each. A4550 Spinal Support Tray. S0020 Bupivicaine 0.5% mg/ml. J1030 Depo-Medrol 40mg/ml. Q9967 Omnipaque 300 mgl/mL. Units: 3.00. * Sign off status: Completed true * Provider: Gaye Pereyra M.D. Date: 0 10/13/2023 Generated for Ruby beltran/Harpreet/Jazz on: 0 10/24/2024 01:10 PM CDT
--- NOTE | 2024-10-24 13:32 | ED_ITS ---
HPI - General Adult General Chief complaint: Alcohol/Intoxication Stated complaint: weakness Time Seen by Provider: 10/24/24 13:25 History of Present Illness HPI narrative: Pt comes in via EMS. Lives at home with family in the basement, which per EMS is almost condemnable, and very poor living conditions of entire house. Pt is chronic ETOH, however increased depression and ETOH use currently and per family wants to drink herself to . She is not caring for herself at all and has leigh d increased weight loss and FTT. Family called EMS. Pt is agreeable to come in after family/EMS discussion. Last drink earlier today. Drinks a L of vodka daily. 54-year-old woman presenting to the emergency department via EMS. Apparently lives with family. Rather poor living conditions were noted. Maki acknowledges drinking. She says that she is interested in living; does not want to . I mention detox and she says well she thought she could do it on her own. She denies a history of alcohol withdrawal seizures or hallucinations. Last drink was this morning. She does have some right shoulder pain noting a fall. Denies hitting her head. No neck or back pain otherwise. No abdominal pain. Is rather nauseated. Has not been vomiting. No known fevers. She seems indicate that she tried to self detox before but this time it does not seem to be working. Related Data Home Medications ?Medication ?Instructions ?Recorded ?Confirmed gabapentin 300 mg capsule 300 mg PO 3XD 10/24/24 10/24/24 Allergies Allergy/AdvReac Type Severity Reaction Status Date / Time Sulfa (Sulfonamide Allergy Verified 10/24/24 21:53 Antibiotics) Review of Systems Status of ROS: Reports: 6 or more systems reviewed and unremarkable except as noted in History and below [facility] Medical History (Updated 10/25/24 @ 10:13 by Michael Loza MD) Malnutrition ?E46 - Unspecified protein-calorie malnutrition (ICD-10) Alcohol withdrawal ?F10.939 - Alcohol use, unspecified with withdrawal, unspecified (ICD-10) Discharge planning issues ?Z75.8 - Other problems related to medical facilities and other health care (ICD-10) Wernicke encephalopathy ?E51.2 - Wernicke's encephalopathy (ICD-10) Alcohol use disorder, severe, dependence ?F10.20 - Alcohol dependence, uncomplicated (ICD-10) Chronic back pain ?M54.9 - Dorsalgia, unspecified (ICD-10) ?G89.29 - Other chronic pain (ICD-10) Surgical History (Updated 10/25/24 @ 00:45 by Gunner Henry MD) H/O lumbosacral spine surgery ?Z98.890 - Other specified postprocedural states (ICD-10) Social History (Updated 10/25/24 @ 00:47 by Gunner Henry MD) Narrative: She lives in [place] in a home with her mother. I believe she lives in the basement. Her daughter and sister indicate that this space is unfit for habitation. She reports drinking 750 mL of vodka per day. She smokes 3/4 of a pack of cigarettes per day. What is your current living situation?: I presently have a place to live Problems where you live: no known problems Problems where you live details: N/A In the past 12 months, utilities in danger of being shut off: no In past 12 months, lack of transportation kept you from medical appts, meetings, work, or getting things needed for daily living: no In the past 12 mos, have been you worried that your food would run out before you had money to buy more?: never true In the past 12 mos, the food you bought just didn't last and you didn't have money to buy more?: never true Smoking Status: Current every day smoker What tobacco products do you use: cigarettes Smoking packs per day: 1 Smoking cigarettes per day: 20.0 Do you use any of these nicotine containing products: None How often do you have a drink containing alcohol: 4 or more times a week How many standard drinks containing alcohol do you have on a typical day: 10 or more How often do you have six or more drinks on one occasion: Daily or almost daily AUDIT-C Alcohol total score: 12 Non-prescribed substance use: denies use How often does anyone, including family, friends and others, physically hurt you : never How often does anyone, including family, friends and others, insult or talk down to you: never How often does anyone, including family, friends and others, threaten you with harm: never How often does anyone, including family, friends and others, scream or curse at you: never service: No Exam Narrative: Exam Narrative: Dusky colored skin. Generally tremulous. Slightly confused. Cranial nerves 2- 12 are intact. Pupils are equal. Breath has odor of ketones. She is breathing easily. Lungs are clear. Is moving her extremities without difficulty. Generally though seems weak. Decreased muscle tone particular about the shoulders. I do not appreciate any swelling or erythema or indication of injury about the right shoulder where she has been having some pain. Heart in elevated rate but regular rhythm. Abdomen is little protuberant soft nontender. No masses appreciated. Extremities are without edema. Feet and hands are little dirty. Lips are dry. Examination later of her mouth. Does show hyperemic oral mucosa but I do not appreciate any plaquing to suggest thrush. Const: Vital Signs, click to edit/add: Vital Signs - 24 hr 10/24/24 13:12 10/24/24 13:18 10/24/24 13:19 Temperature 96.8 F L Pulse Rate Pulse Rate [Left P ulse Oximeter] Pulse Rate [Left R adial] 90 Respiratory Rate 16 Blood Pressure Blood Pressure [Le ft Arm] Blood Pressure [Le ft Upper Arm] 86/67 L Pulse Oximetry 100 100 Oxygen Delivery [facility] Room Air 10/24/24 13:36 10/24/24 13:38 10/24/24 13:46 Temperature Pulse Rate 108 H 113 H Pulse Rate [Left P ulse Oximeter] Pulse Rate [Left R adial] Respiratory Rate Blood Pressure 107/76 101/79 Blood Pressure [Le ft Arm] Blood Pressure [Le ft Upper Arm] Pulse Oximetry 95 82 L Oxygen Delivery [facility] 10/24/24 13:50 10/24/24 14:00 10/24/24 14:01 Temperature Pulse Rate 106 H 97 103 H Pulse Rate [Left P ulse Oximeter] Pulse Rate [Left R adial] Respiratory Rate Blood Pressure 105/82 Blood Pressure [Le ft Arm] Blood Pressure [Le ft Upper Arm] Pulse Oximetry 100 100 95 Oxygen Delivery [facility] 10/24/24 14:15 10/24/24 14:16 10/24/24 14:30 Temperature Pulse Rate 99 102 H 106 H Pulse Rate [Left P ulse Oximeter] Pulse Rate [Left R adial] Respiratory Rate Blood Pressure 105/84 Blood Pressure [Le ft Arm] Blood Pressure [Le ft Upper Arm] Pulse Oximetry 100 99 100 Oxygen Delivery [facility] 10/24/24 14:31 10/24/24 14:38 10/24/24 14:45 Temperature Pulse Rate 106 H 108 H Pulse Rate [Left P ulse Oximeter] Pulse Rate [Left R adial] 98 Respiratory Rate Blood Pressure 119/94 H Blood Pressure [Le ft Arm] Blood Pressure [Le ft Upper Arm] 119/64 Pulse Oximetry 100 94 100 Oxygen Delivery [facility] 10/24/24 14:46 10/24/24 15:00 10/24/24 15:01 Temperature Pulse Rate 111 H 105 H 106 H Pulse Rate [Left P ulse Oximeter] Pulse Rate [Left R adial] Respiratory Rate Blood Pressure 120/83 97/77 Blood Pressure [Le ft Arm] Blood Pressure [Le ft Upper Arm] Pulse Oximetry 100 100 100 Oxygen Delivery [facility] 10/24/24 15:15 10/24/24 15:16 10/24/24 15:30 Temperature Pulse Rate 107 H 108 H 108 H Pulse Rate [Left P ulse Oximeter] Pulse Rate [Left R adial] Respiratory Rate Blood Pressure 106/93 H Blood Pressure [Le ft Arm] Blood Pressure [Le ft Upper Arm] Pulse Oximetry 99 99 98 Oxygen Delivery [facility] 10/24/24 15:31 10/24/24 15:45 10/24/24 15:46 Temperature Pulse Rate 108 H 107 H 109 H Pulse Rate [Left P ulse Oximeter] Pulse Rate [Left R adial] Respiratory Rate Blood Pressure 121/109 H 106/91 H Blood Pressure [Le ft Arm] Blood Pressure [Le ft Upper Arm] Pulse Oximetry 98 98 98 Oxygen Delivery [facility] 10/24/24 16:01 10/24/24 16:16 10/24/24 16:26 Temperature Pulse Rate 110 H Pulse Rate [Left P ulse Oximeter] Pulse Rate [Left R adial] Respiratory Rate Blood Pressure 102/82 107/81 Blood Pressure [Le ft Arm] Blood Pressure [Le ft Upper Arm] Pulse Oximetry 97 Oxygen Delivery [facility] 10/24/24 16:31 10/24/24 16:33 10/24/24 16:47 Temperature Pulse Rate 110 H 113 H Pulse Rate [Left P ulse Oximeter] Pulse Rate [Left R adial] Respiratory Rate Blood Pressure 102/83 Blood Pressure [Le ft Arm] Blood Pressure [Le ft Upper Arm] Pulse Oximetry 95 90 Oxygen Delivery [facility] 10/24/24 16:48 10/24/24 17:00 10/24/24 17:03 Temperature Pulse Rate 111 H 108 H Pulse Rate [Left P ulse Oximeter] Pulse Rate [Left R adial] Respiratory Rate Blood Pressure 95/81 100/54 L Blood Pressure [Le ft Arm] Blood Pressure [Le ft Upper Arm] Pulse Oximetry 99 97 Oxygen Delivery [facility] 10/24/24 17:15 10/24/24 17:16 10/24/24 17:31 Temperature Pulse Rate 115 H 116 H Pulse Rate [Left P ulse Oximeter] Pulse Rate [Left R adial] Respiratory Rate Blood Pressure 99/69 106/73 Blood Pressure [Le ft Arm] Blood Pressure [Le ft Upper Arm] Pulse Oximetry 86 L 70 L Oxygen Delivery [facility] 10/24/24 17:46 10/24/24 18:01 10/24/24 18:17 Temperature Pulse Rate Pulse Rate [Left P ulse Oximeter] Pulse Rate [Left R adial] Respiratory Rate Blood Pressure 97/65 97/64 91/67 Blood Pressure [Le ft Arm] Blood Pressure [Le ft Upper Arm] Pulse Oximetry Oxygen Delivery [facility] 10/24/24 19:43 10/24/24 21:05 10/24/24 21:27 Temperature 97.6 F Pulse Rate Pulse Rate [Left P ulse Oximeter] Pulse Rate [Left R adial] 110 H 112 H 110 H Respiratory Rate 22 22 22 Blood Pressure Blood Pressure [Le ft Arm] Blood Pressure [Le ft Upper Arm] 83/62 L 82/71 L 106/81 Pulse Oximetry 96 95 97 Oxygen Delivery Me od Room Air Room Air Room Air 10/24/24 22:25 10/24/24 22:25 10/24/24 23:00 Temperature 97.6 F 97.6 F Pulse Rate Pulse Rate [Left P ulse Oximeter] 109 H 109 H Pulse Rate [Left R adial] Respiratory Rate 22 22 22 Blood Pressure Blood Pressure [Le ft Arm] 93/64 93/64 Blood Pressure [Le ft Upper Arm] Pulse Oximetry 96 96 96 Oxygen Delivery Me od Room Air Room Air Room Air Documenting provider has reviewed patient's vital signs: yes Course Vital Signs Vital signs: Initial Vital Signs Temperature 96.8 F L 05/14/25 13:12 Temperature Source Temporal Artery Scan 10/24/24 13:12 Pulse Rate 90 10/24/24 13:12 Pulse Rhythm Regular 10/24/24 13:12 Respiratory Rate 16 10/24/24 13:12 Blood Pressure 86/67 L 10/24/24 13:12 Blood Pressure Mean 73 10/24/24 13:12 Oxygen Delivery Method Room Air 10/24/24 13:12 Vital Signs Temperature 96.8 F L 10/24/24 13:12 Pulse Rate 90 10/24/24 13:12 Respiratory Rate 16 10/24/24 13:12 Blood Pressure 86/67 L 10/24/24 13:12 Oxygen Delivery Method Room Air 10/24/24 13:12 Temperature 97.7 F 10/25/24 09:15 Pulse Rate 100 10/25/24 08:00 Respiratory Rate 24 10/25/24 08:00 Blood Pressure 103/76 10/25/24 08:00 Pulse Oximetry 99 10/25/24 08:00 Oxygen Delivery Method Room Air 10/25/24 08:00 Medications Administered Medications: Generic Name Dose Route Start Last Admin Trade Name Freq PRN Reason Stop Dose Admin Acetaminophen 650 mg 10/24/24 23:13 10/25/24 09:15 Acetaminophen 325 Mg Tablet PO 650 mg Q6H PRN Administration Folic Acid 1 mg 10/25/24 09:00 10/25/24 09:15 Folic Acid 1 Mg Tablet PO 1 mg DAILY DAVID Administration Gabapentin 300 mg 10/24/24 23:13 10/25/24 09:15 Gabapentin 300 Mg Capsule PO 300 mg TID DAVID Administration Thiamine HCl 500 mg/ Sodium 105 mls @ 105 mls/hr 10/25/24 09:00 10/25/24 09:16 Chloride IVPB 10/27/24 21:01 105 mls/hr TID DAVID Administration Lidocaine/Diphenhydr/Alum/Mg/Simeth 5 ml 10/24/24 23:13 10/25/24 00:01 Diphen/Lido/Alum/Mag/Simeth 5 Ml Suspension MUCOUS MEM 5 ml Q4H PRN Administration Lorazepam 1 - 4 mg 10/24/24 23:13 10/25/24 09:13 Lorazepam 1 Mg Tablet PO 1 mg Q1H PRN Administration Protocol Multivitamins/Minerals 1 tab 10/25/24 09:00 10/25/24 09:15 Multivitamin/Minerals 1 Tablet PO 1 tab DAILY DAVID Administration Omeprazole 20 mg 10/25/24 09:00 10/25/24 09:15 [address]ep[address] PO 20 mg BID DAVID Administration Potassium Bicarbonate 25 meq 10/25/24 07:45 10/25/24 09:11 Potassium Bicarb 25 Meq Effervescent Tab PO 10/25/24 11:46 25 meq Q2H DAVID Administration Sodium Chloride 5 ml 10/25/24 09:00 10/25/24 09:24 Sodium Chloride 0.9 % (Flush) 10 Ml Syringe IVF Not Given BID DAVID Sodium Chloride 250 ml 10/24/24 23:45 10/25/24 00:08 0.9 % Sodium Chloride 250 Ml IV 250 ml Q24H DAVID Administration Discontinued Medications Generic Name Dose Route Start Last Admin Trade Name Freq PRN Reason Stop Dose Admin Sodium Chloride 1,000 mls @ 1,000 mls/hr 10/24/24 13:41 10/24/24 15:07 0.9 % Sodium Chloride 1000 Ml IV 10/24/24 14:40 Infused .Q1H ONE Infusion Potassium Chloride 10 meq in 100 mls @ 100 mls/hr 10/24/24 14:24 10/24/24 16:51 Potassium Chloride IVPB 10/24/24 15:23 Infused ONCE ONE Infusion Magnesium Sulfate/Dextrose 1 gm in 100 mls @ 100 mls/hr 10/24/24 14:25 10/24/24 17:52 Magnesium Sulf 1 G/100 Ml-D5w IVPB 10/24/24 15:24 Infused ONCE ONE Infusion Lactated Ringer's 1,000 mls @ 1,000 mls/hr 10/24/24 15:44 10/24/24 17:52 Lactated Ringers 1000 Ml IV 10/24/24 16:43 Infused .Q1H ONE Infusion Ceftriaxone Sodium 1 gm/ 100 mls @ 200 mls/hr 10/24/24 17:20 10/24/24 23:15 Sodium Chloride IVPB 10/24/24 17:21 Infused ONCE ONE Infusion Magnesium Sulfate/Dextrose 1 gm in 100 mls @ 100 mls/hr 10/24/24 17:49 10/24/24 23:15 Magnesium Sulf 1 G/100 Ml-D5w IVPB 10/24/24 18:48 Infused ONCE ONE Infusion Thiamine HCl 250 mg/ Sodium 102.5 mls @ 102.5 mls/hr 10/24/24 17:52 10/24/24 23:14 Chloride IVPB 10/24/24 18:51 Infused ONCE ONE Infusion Potassium Chloride 20 meq/ 1,010 mls @ 500 mls/hr 10/24/24 20:32 10/24/24 23:14 Dextrose/Sodium Chloride IV 10/24/24 22:33 Infused .Q2H2M ONE Infusion Thiamine HCl 250 mg/ Sodium 102.5 mls @ 102.5 mls/hr 10/24/24 23:13 10/25/24 02:35 Chloride IVPB 10/24/24 23:14 Infused ONCE ONE Infusion Phenobarbital 260 mg/ Sodium 104 mls @ 208 mls/hr 10/24/24 23:13 10/25/24 02:39 Chloride IVPB 10/24/24 23:14 Infused ONCE ONE Infusion Potassium Chloride 20 meq/ 1,010 mls @ 250 mls/hr 10/24/24 23:15 10/25/24 06:45 Dextrose/Sodium Chloride IV 10/25/24 07:19 250 mls/hr .Q4H3M DAVID Administration Potassium Chloride 10 meq in 100 mls @ 100 mls/hr 10/24/24 23:30 10/25/24 07:59 Potassium Chloride IVPB 10/25/24 04:59 Infused Q90M DAVID Infusion Potassium Chloride 10 meq in 100 mls @ 100 mls/hr 10/25/24 00:30 10/25/24 01:51 Potassium Chloride IVPB 10/25/24 05:59 Not Given Q90M DAVID Pantoprazole Sodium 40 mg 10/24/24 23:36 10/25/24 00:05 Pantoprazole Sodium 40 Mg Inj IVP 10/24/24 23:37 40 mg ONCE ONE Administration Potassium Bicarbonate 50 meq 10/24/24 17:46 10/25/24 07:33 Potassium Bicarb 25 Meq Effervescent Tab PO 10/24/24 17:47 Not Given ONCE ONE Potassium Chloride 40 meq 10/24/24 23:13 10/25/24 00:31 Potassium Chloride 10 Meq Capsule Er PO 10/24/24 23:14 Not Given ONCE ONE Medical Decision Making MDM Narrative Medical decision making narrative: Does appear to be rather malnourished at this point. Ketones are concerning. Will attempt to hydrate. Did place IV in the right arm but as I was examining and noted that it was beginning to infiltrate. This was stopped. Will try again. Look for other concerning signs in the labs and need for hospital detox verses outpatient detox. Does look improved after initial L fluid bolus. Improved color. Improvement mentation Not sure that urinalysis while at looks infected is likely source of sepsis picture. Certainly complicated by poor nutrition and dehydration in the setting of alcoholism. With concern of potential source though getting Rocephin 1 g initially. Blood cultures and urine cultures are pending. Initial lactate is mildly elevated at 3.2 this was however given after 2 L of IV fluid resuscitation. Appears generally weak. Pressures have been also somewhat soft and intermittently a little lower. Not affected a whole lot by hydration. Has received 2 L; beyond 30 per kilo. Discussed potential admission with our hospitalist. Will continue to replace potassium and magnesium and recheck efforts. Over time in the emergency department has been struggling with oral intake. Has vomited up some attempts at oral intake. Further questioning does reveal that she has had significant pain with swallowing for months. Some of this is related to sore throat that she says starts at the glands. This might just represent esophagitis this in the setting of alcoholism. Has also needed assist of 1 at least for transfers due to weakness. Repeat lactate is improved. Still feel needs further evaluation for potential source of infection or disability. Furthermore has been lost to healthcare likely for years. Will be contrast scanning chest abdomen pelvis. Was sober for a few years up until 2 or 3 years ago. Imaging pending. Anticipating admission to hospital Lab Data Lab results reviewed: Yes I reviewed the patient's lab results Labs: Lab Results 10/24/24 10/24/24 10/24/24 Range/Units 13:36 16:30 17:54 WBC 8.79 (4.50-11.00) K/uL RBC 3.43 L (4.00-5.20) m/uL Hgb 11.9 L (12.0-16.0) gm/dL Hct 34.1 (33.0-51.0) % MCV 99 (80-100) fL MCH 35 H (26-34) pg MCHC 35 (32-36) gm/dL RDW Coeff of Clay 14.7 (11.5-15.5) % Plt Count 292 (140-440) K/uL Neut % (Auto) 84.4 H (42.0-72.0) % Lymph % (Auto) 8.9 L (20-44) % [place]yer % (Auto) 6.3 (0.0-11.0) % Eos % (Auto) 0.0 (0.0-7.0) % Baso % (Auto) 0.1 (0.0-3.0) % Neut # (Auto) 7.40 H (1.7-7.0) K/uL Lymph # (Auto) 0.80 L (0.90-2.90) K/uL [place]yer # (Auto) 0.60 (0.00-0.90) K/UL Eos # (Auto) 0.00 (0.00-0.50) K/uL Baso # (Auto) 0.01 (0.00-0.30) K/uL Abs Immat Gran (auto) 0.03 (0.00-0.30) K/uL Imm/Tot Granulo (auto) 0.3 % Sodium 130 L (135-149) mmol/L Potassium 2.7 L* (3.6-5.1) mmol/L Chloride 73 L (96-114) mmol/L Carbon Dioxide 26 (20-32) mmol/L Anion Gap 31 H (7-15) mEq/L BUN 36 H (7-30) mg/dL Creatinine 1.2 (0.5-1.5) mg/dL Estimated Creat Clear Estimated GFR 54 ml/min Glucose 140 H (60-115) mg/dL Lactate (0.5-1.9) mmol/L Calcium 8.2 L (8.4-10.6) mg/dL Magnesium 1.4 L (1.5-2.6) mg/dL Total Bilirubin 1.0 (0.1-1.5) mg/dL Direct Bilirubin 0.7 H (0.0-0.5) mg/dL AST 49 H (12-35) U/L ALT 39 H (4-35) U/L Alkaline Phosphatase 87 (40-150) U/L NT-Pro-B Natriuret Pep pg/mL Total Protein 7.3 (6.0-8.3) g/dL Albumin 4.4 (3.3-5.0) g/dL Lipase 249 (23-300) U/L Urine Color Brown A (Yellow) Urine Appearance Cloudy A (Clear) Urine pH 5.5 (5.0-8.5) Ur Specific [place] 1.025 (1.000-1.030) Urine Protein 2+ A (Negative) Urine Glucose (UA) Negative (Negative) Urine Ketones 2+ A (Negative) Urine Blood 1+ A (Negative) Urine Nitrite Positive A (Negative) Urine Bilirubin 2+ A (Negative) Urine Urobilinogen 1.0 (0.2-1.0) Ur Leukocyte Esterase 1+ A (Negative) Urine RBC 2-5 A (0-2) Urine WBC 5-10 A (0-5) Ur Squamous Epith Cells Few (None-Few) Urine Bacteria Many A (None) Hyaline Casts Few (None-Few) Urine Opiates Screen Negative (Negative) Ur Oxycodone Screen Negative (Negative) Urine Methadone Screen Negative (Negative) Ur Barbiturates Screen Negative (Negative) U Tricyclic Antidepress Negative (Negative) Ur Phencyclidine Scrn Negative (Negative) Ur Amphetamines Screen Negative (Negative) U Methamphetamines Scrn Negative (Negative) U Benzodiazepines Scrn Negative (Negative) Urine Cocaine Screen Negative (Negative) U Marijuana (THC) Screen Negative (Negative) Ur Drug Screen Comment See Note Ethyl Alcohol < 0.01 (0.01-0.03) % Group A Strep DNA (Not Detectd) Lab Acknowledgement Test Added POC Troponin I 0.02 (0.01-0.04) ng/ml 10/24/24 10/24/24 10/24/24 Range/Units 18:44 20:32 20:50 WBC (4.50-11.00) K/uL RBC (4.00-5.20) m/uL Hgb (12.0-16.0) gm/dL Hct (33.0-51.0) % MCV (80-100) fL MCH (26-34) pg MCHC (32-36) gm/dL RDW Coeff of Clay (11.5-15.5) % Plt Count (140-440) K/uL Neut % (Auto) (42.0-72.0) % Lymph % (Auto) (20-44) % Dyer % (Auto) (0.0-11.0) % Eos % (Auto) (0.0-7.0) % Baso % (Auto) (0.0-3.0) % Neut # (Auto) (1.7-7.0) K/uL Lymph # (Auto) (0.90-2.90) K/uL Dyer # (Auto) (0.00-0.90) K/UL Eos # (Auto) (0.00-0.50) K/uL Baso # (Auto) (0.00-0.30) K/uL Abs Immat Gran (auto) (0.00-0.30) K/uL Imm/Tot Granulo (auto) % Sodium (135-149) mmol/L Potassium (3.6-5.1) mmol/L Chloride (96-114) mmol/L Carbon Dioxide (20-32) mmol/L Anion Gap (7-15) mEq/L BUN (7-30) mg/dL Creatinine (0.5-1.5) mg/dL Estimated Creat Clear Estimated GFR ml/min Glucose (60-115) mg/dL Lactate 3.2 H (0.5-1.9) mmol/L Calcium (8.4-10.6) mg/dL Magnesium (1.5-2.6) mg/dL Total Bilirubin (0.1-1.5) mg/dL Direct Bilirubin (0.0-0.5) mg/dL AST (12-35) U/L ALT (4-35) U/L Alkaline Phosphatase (40-150) U/L NT-Pro-B Natriuret Pep pg/mL Total Protein (6.0-8.3) g/dL Albumin (3.3-5.0) g/dL Lipase (23-300) U/L Urine Color (Yellow) Urine Appearance (Clear) Urine pH (5.0-8.5) Ur Specific [place] (1.000-1.030) Urine Protein (Negative) Urine Glucose (UA) (Negative) Urine Ketones (Negative) Urine Blood (Negative) Urine Nitrite (Negative) Urine Bilirubin (Negative) Urine Urobilinogen (0.2-1.0) Ur Leukocyte Esterase (Negative) Urine RBC (0-2) Urine WBC (0-5) Ur Squamous Epith Cells (None-Few) Urine Bacteria (None) Hyaline Casts (None-Few) Urine Opiates Screen (Negative) Ur Oxycodone Screen (Negative) Urine Methadone Screen (Negative) Ur Barbiturates Screen (Negative) U Tricyclic Antidepress (Negative) Ur Phencyclidine Scrn (Negative) Ur Amphetamines Screen (Negative) U Methamphetamines Scrn (Negative) U Benzodiazepines Scrn (Negative) Urine Cocaine Screen (Negative) U Marijuana (THC) Screen (Negative) Ur Drug Screen Comment Ethyl Alcohol (0.01-0.03) % Group A Strep DNA NOT DETECTED (Not Detectd) Lab Acknowledgement Test Added POC Troponin I (0.01-0.04) ng/ml 10/24/24 10/24/24 Range/Units 21:24 21:27 WBC (4.50-11.00) K/uL RBC (4.00-5.20) m/uL Hgb (12.0-16.0) gm/dL Hct (33.0-51.0) % MCV (80-100) fL MCH (26-34) pg MCHC (32-36) gm/dL RDW Coeff of Clay (11.5-15.5) % Plt Count (140-440) K/uL Neut % (Auto) (42.0-72.0) % Lymph % (Auto) (20-44) % Dyer % (Auto) (0.0-11.0) % Eos % (Auto) (0.0-7.0) % Baso % (Auto) (0.0-3.0) % Neut # (Auto) (1.7-7.0) K/uL Lymph # (Auto) (0.90-2.90) K/uL [place]yer # (Auto) (0.00-0.90) K/UL Eos # (Auto) (0.00-0.50) K/uL Baso # (Auto) (0.00-0.30) K/uL Abs Immat Gran (auto) (0.00-0.30) K/uL Imm/Tot Granulo (auto) % Sodium 128 L (135-149) mmol/L Potassium 2.3 L* (3.6-5.1) mmol/L Chloride 85 L (96-114) mmol/L Carbon Dioxide 30 (20-32) mmol/L Anion Gap 13 (7-15) mEq/L BUN 34 H (7-30) mg/dL Creatinine 0.8 (0.5-1.5) mg/dL Estimated Creat Clear 69.42 Estimated GFR 88 ml/min Glucose 217 H (60-115) mg/dL Lactate 2.2 H (0.5-1.9) mmol/L Calcium 6.8 L (8.4-10.6) mg/dL Magnesium 2.0 (1.5-2.6) mg/dL Total Bilirubin (0.1-1.5) mg/dL Direct Bilirubin (0.0-0.5) mg/dL AST (12-35) U/L ALT (4-35) U/L Alkaline Phosphatase (40-150) U/L NT-Pro-B Natriuret Pep 682 pg/mL Total Protein (6.0-8.3) g/dL Albumin (3.3-5.0) g/dL Lipase (23-300) U/L Urine Color (Yellow) Urine Appearance (Clear) Urine pH (5.0-8.5) Ur Specific [place] (1.000-1.030) Urine Protein (Negative) Urine Glucose (UA) (Negative) Urine Ketones (Negative) Urine Blood (Negative) Urine Nitrite (Negative) Urine Bilirubin (Negative) Urine Urobilinogen (0.2-1.0) Ur Leukocyte Esterase (Negative) Urine RBC (0-2) Urine WBC (0-5) Ur Squamous Epith Cells (None-Few) Urine Bacteria (None) Hyaline Casts (None-Few) Urine Opiates Screen (Negative) Ur Oxycodone Screen (Negative) Urine Methadone Screen (Negative) Ur Barbiturates Screen (Negative) U Tricyclic Antidepress (Negative) Ur Phencyclidine Scrn (Negative) Ur Amphetamines Screen (Negative) U Methamphetamines Scrn (Negative) U Benzodiazepines Scrn (Negative) Urine Cocaine Screen (Negative) U Marijuana (THC) Screen (Negative) Ur Drug Screen Comment Ethyl Alcohol (0.01-0.03) % Group A Strep DNA (Not Detectd) Lab Acknowledgement Test Added POC Troponin I (0.01-0.04) ng/ml ECG Data Attestation: I personally reviewed and interpreted this ECG as follows: (Normal sinus rhythm. QTC of 531. Rate of 99) Discharge Plan Discharge Clinical Impression: Weakness, Malnutrition, Hypokalemia, Hypomagnesemia, Alcohol dependence Patient Disposition: Admitted As Observation
[2024-10-24 13:51] LABS: Basophils Absolute Auto 0.01 K/uL (0.00-0.30); Basophils Percent Auto 0.1 % (0.0-3.0); Hematocrit 34.1 % (33.0-51.0); Hemoglobin* 11.9 gm/dL (12.0-16.0); Immature Granulocytes Abs Auto 0.03 K/uL (0.00-0.30); Immature Granulocytes Pct Auto 0.3 %; Lymphocytes Percent Auto 8.9 % (20-44); Mean Corpuscular HGB Conc 35 gm/dL (32-36); Mean Corpuscular Hemoglobin 35 pg (26-34); Mean Corpuscular Volume 99 fL (80-100); Monocytes Percent Auto 6.3 % (0.0-11.0); Neutrophils Percent Auto 84.4 % (42.0-72.0); Platelet Count* 292 K/uL (140-440); RDW Coefficient of Variation % 14.7 % (11.5-15.5); Red Blood Count 3.43 m/uL (4.00-5.20); White Blood Count* 8.79 K/uL (4.50-11.00)
[2024-10-24] MEDS: 0.9 % SODIUM CHLORIDE 1000 ml 1,000 ML IV (13:52)
[2024-10-24 13:53] LABS: Troponin, Point-of-Care* 0.02 ng/ml (0.01-0.04)
[2024-10-24 13:56] LABS: Slide Review Reflex No
[2024-10-24 14:07] LABS: Albumin* 4.4 g/dL (3.3-5.0); Chloride* 73 mmol/L (96-114); Sodium* 130 mmol/L (135-149)
[2024-10-24 14:09] LABS: Blood Urea Nitrogen* 36 mg/dL (7-30); Creatinine* 1.2 mg/dL (0.5-1.5); Estimated Glomerular Filt Rate 54 ml/min
[2024-10-24 14:10] LABS: Alanine Aminotransferase* 39 U/L (4-35); Alkaline Phosphatase* 87 U/L (40-150); Anion Gap 31 mEq/L (7-15); Aspartate Amino Transferase* 49 U/L (12-35); Bilirubin Direct* 0.7 mg/dL (0.0-0.5); Calcium* 8.2 mg/dL (8.4-10.6); Carbon Dioxide* 26 mmol/L (20-32); Glucose* 140 mg/dL (60-115); Magnesium* 1.4 mg/dL (1.5-2.6); Total Protein* 7.3 g/dL (6.0-8.3)
[2024-10-24 14:16] LABS: Potassium* 2.7 mmol/L (3.6-5.1)
--- OUTSIDE RECORDS SUMMARY | 2024-10-24 14:37 | XMS_ITS | Encounter Summary ---
Author Organization [place] Address [address] [place] [address]. [place] [address] Care Team Providers Care Welding Machine Operator Submerged Arc Name Role Phone Devon Esquivel PA-C Unavailable [phone] Maddie Holden APRN MEDICAL NURSE Unavailable [phone] Sinyigaya, Speciose TRUST VAULT CLERK Unavailable [phone] No Ref-Primary, Physician Primary Care Provider Sinyigaya, Speciose TRUST VAULT CLERK Unavailable [phone] Reason for Visit * Reason Comments Medication Refill propranolol (INDERAL ) 20 MG tablet Encounter Details Date Type Department Care Team (Late st Contact Info) Description 08/26/[address] 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 Kaila Severino Application Packager * Telephone Encounter - Lorri Leo APRN [...] Total Score: 8 06/16/19 24 11:53 AM EXPEDITION SUPERVISOR documented as of this encounter Care Teams Welding Machine Operator Submerged Arc Relationship Specialty Start Date End Date No Ref-Primary, Physician PCP - General 08/29/23 Devon Esquivel PA-C [address] [place] [address] Assigned PCP 12/03/21 Maddie Holden APRN CNP [address] [facility] [address] [place], [place] [address] Assigned Pain Medication Provider 06/21/22 03/04/24 Keila Saunders LICSW [address] [place] [address] Surveillance Analyst Surveillance Analyst - Clinical 09/02/22 Keila Saunders TRUST VAULT CLERK [address] [place] [address] Assigned Behavioral Health Provider 10/04/23 08/04/24 documented as of this encounter
--- OUTSIDE RECORDS SUMMARY | 2024-10-24 14:37 | XMS_ITS | Encounter Summary ---
Author Organization [facility] Address [address] [place] [address] Care Team Providers Care Major Assembly Lineman Name Role Phone Devon Esquivel PA-C Unavailable [phone] Maddie Holden APRN PLANTING MATERIAL REMOVER Unavailable [phone] Sinyigaya, Speciose SOLID TIRE FINISHER Unavailable [phone] No Ref-Primary, Physician Primary Care Provider Sinyigaya, Speciose SOLID TIRE FINISHER Unavailable [phone] Reason for Visit * Reason Onset Date Comments Opioid Refill 08/25/2023 Encounter Details Date Type Department Care Team (Late st Contact Info) Description 08/25/2023 Telephone [facility] [address] [facility] [address] [place] [address] Maddie Holden APRN PLANTING MATERIAL REMOVER [address] [place] [address] [place], [place] [address] Opioid Refill Social History Tobacco Use Types [...] on file 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 She reports she he willnot be coming back to [facility]. She does not want to discuss the question pertaining tothe pain medication. She reports her main concern is with the propranolol on her medication list. She reports she cannot take this medication and believes she may have had a heart attack from using pr opranolol. I did remove it and note it as contraindicated in her chart. MARY GRACE Millan, RN Cell Manager [facility] * Telephone Encounter - Nisa Hernandez - 08/26/2023 2:14 PM CDT [facility] Call Center Phone Message May a detailed message be left on voicemail: yes Reason for Call: Other: Patient is calling requesting a call back to go over details of why her medications have not been filled. Please call back. Action Taken: Message routed to: Other: [facility] Travel Screening: Not Applicable * [...] come in for that appointment. Regarding a customer care consultant telling you that you have a right [...] request for refills. MARY GRACE Millan, RN Cell Manager [facility] * Telephone Encounter - Nisa Hernandez - 08/25/2023 1:49 PM CDT [facility] Phone Message May a detailed message [...] back. Action Taken: Message routed to: Other: [facility] Travel Screening: Not Applicable documented in this encounter Plan of Treatment Not on file documented as of this encounter Visit Diagnoses Not on filedocumented in this encounter Additional Health Concerns Assessment Noted Time PHQ-9 Depression Total Score: 8 06/16/19 24 11:53 AM FINANCIAL INTERNSHIP documented as of this encounter Care Teams Major Assembly Lineman Relationship Specialty Start Date End Date No Ref-Primary, Physician PCP - General 08/29/23 Devon Esquivel PA-C [address] [place] [address] Assigned PCP 12/03/21 Maddie Holden APRN CNP [address] [facility] [address] [place] [address] Assigned Pain Medication Provider 06/21/22 03/04/24 Keila Saunders LICSW [address] [place] [address] Crawler Tractor Operator Crawler Tractor Operator - Clinical 09/02/22 Keila Saunders LICSW [address] [place] [address] Assigned Behavioral Health Provider 10/04/23 08/04/24 documented as of this encounter
--- OUTSIDE RECORDS SUMMARY | 2024-10-24 14:37 | XMS_ITS | Encounter Summary ---
Author Organization [place] Address [address] [place] [address] Care Team Providers Care Mining Engineering Technologist Name Role Phone Devon Esquivel PA-C Unavailable [phone] Maddie Holden APRN PROGRAM ENGINEER Unavailable [phone] Sinyigaya, Speciose SUB ARC OPERATOR Unavailable [phone] No Ref-Primary, Physician Primary Care Provider Sinyigaya, Speciose SUB ARC OPERATOR Unavailable [phone] Encounter Details Date Type Department Care Team (Late st Contact Info) Description 08/26/2023 [facility] [address] [address] Kaila Ocampo Social History Tobacco [...] on file 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 Gender Identity Not on file Sexual Orientation Not on file documented as of this encounter Plan of Treatment Not on file documented as of this encounter Visit Diagnoses Not on filedocumented in this encounter Additional Health Concerns Assessment Noted Time PHQ-9 Depression Total Score: 8 06/16/19 24 11:53 AM CHEMIST PHYSICAL documented as of this encounter Care Teams Mining Engineering Technologist Relationship Specialty Start Date End Date No Ref-Primary, Physician PCP - General 08/29/23 Devon Esquivel PA-C [address] [facility] [place] [address] Assigned PCP 12/03/21 Maddie Holden APRN PROGRAM ENGINEER [address] [facility] [address] [facility] [address] [place] [address] Assigned Pain Medication Provider 06/21/22 03/04/24 Keila Saunders LICSW [address] [place] [address] College Of Education Dean [employer] Dean - Clinical 09/02/22 Keila Saunders LICSW [address] [place] [address] Assigned Behavioral Health Provider 10/04/23 08/04/24 documented as of this encounter
--- OUTSIDE RECORDS SUMMARY | 2024-10-24 14:38 | XMS_ITS | Encounter Summary ---
Author Organization [place] Address [address] [place] [address] Care Team Providers Care Weigher And Crusher Name Role Phone Lisa Davey MD Primary Care Provider [phone] Odalys Phillips APRN AVIONICS INSTALLER Unavailable [place] Devon Rachel PA-C Primary Care Provider [phone] Devon Esquivel PA-C Unavailable [phone] Maddie Holden APRN AVIONICS INSTALLER Unavailable [phone] Sinyigaya, Speciose BALLAST INSPECTOR Unavailable [phone] No Ref-Primary, Physician Primary Care Provider Sinyigaya, Speciose BALLAST INSPECTOR Unavailable [phone] Reason for Visit * Reason Onset Date Comments Opioid Refill 09/09/2021 oxyCODONE (ROXIC ODONE) 5 MG tablet, oxyCODONE (OXYCONTIN) 20 MG 12 hr tablet Encounter Details Date Type Department Care Team (Late st Contact Info) Description 09/09/2021 Refill [facility] [address] [facility] [address] [place] [address] Fede Velazquez MD [address] [place] [address] Opioid Refill (oxyCODONE (ROXICODONE) 5 [...] on file 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 documented in this encounter Plan of Treatment Not on file documented as of this encounter Visit Diagnoses Diagnosis Degeneration of lumbar or lumbosacral intervertebral disc Other chronic pain Chronic pain syndrome Opioid type dependence, continuous (H) Opioid type dependence, continuous documented in this encounter Care Teams Weigher And Crusher Relationship Specialty Start Date End Date Lisa Davey MD PCP - General 11/08/13 12/30/21 Devon Esquivel PA-C [address] [address] [address] PCP - General Family Medicine 12/31/21 08/24/23 No Ref-Primary, Physician PCP - General 08/29/23 Odalys Phillips APRN AVIONICS INSTALLER Assigned Behavioral Health Provider 01/11/21 12/17/22 Devon Esquivel PA-C [address] [facility] [place] [address] Assigned PCP 12/03/21 Maddie Holden APRN AVIONICS INSTALLER [address] [place] [place], [place] [address] Assigned Pain Medication Provider 06/21/22 03/04/24 Keila Saunders LICSW [address] [place], [place] [id number] Instrument Checker Instrument Checker - Clinical 09/02/22 Keila Saunders LICSW [address] [place], [place] [id number] Assigned Behavioral Health Provider 10/04/23 08/04/24 documented as of this encounter
--- OUTSIDE RECORDS SUMMARY | 2024-10-24 14:38 | XMS_ITS | Encounter Summary ---
Author Organization [place] Address [address] [facility] [place] [address] Care Team Providers Care Court Stenographer Name Role Phone Devon Esquivel PA-C Primary Care Provider [phone] Devon Esquivel PA-C Unavailable [phone] Maddie Holden APRN CTRS Unavailable [phone] Sinyigaya, Speciose ORACLE ANALYST Unavailable [phone] No Ref-Primary, Physician Primary Care Provider Sinyigaya, Speciose ORACLE ANALYST Unavailable [phone] Reason for Visit * Reason Onset Date Comments Patient Request 04/04/2023 Patient appointm ent questions Encounter Details Date Type Department Care Team (Late st Contact Info) Description 04/04/2023 Telephone [facility] [address] [facility] [address] [place] [address] Maddie Holden APRN CTRS [address] [facility] [address] [place], [place] [address] Patient Request (Patient appointment questions) Social History [...] on file 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 [place] [address] Treatment Supervisor Treatment Supervisor - Clinical 09/02/22 Keila Saunders LICSW [address] [place] [address] Assigned Behavioral Health Provider 10/04/23 08/04/24 documented as of this encounter
--- OUTSIDE RECORDS SUMMARY | 2024-10-24 14:38 | XMS_ITS | Clinical Summary ---
Author Organization [place] Address [address] [place] [address] Care Team Providers Care Machine Setter Automatic Name Role Phone Devon Esquivel PA-C Unavailable [phone] Keila Saunders ORDER CHECKER Unavailable [phone] No Ref-Primary, Physician Primary Care Provider Allergies [...] MG/0.1ML nasal sprayIndication s:High risk medication use [place] 1 spray (4 mg) into one nostril [...] on file Legal Sex Female 3:20 AM FLUTE GRINDER Gender Identity Not on file Sexual Orientation Not on file Last Filed Vital Signs Vital Sign Reading Time Taken Comments Blood Pressure 144/91 05/26/2023 8:06 AM FLUTE GRINDER Pulse 81 05/26/2023 8:06 AM FLUTE GRINDER Temperature 36.7 C (98.1 F) 12/31/2021 1:52 [...] HC MISC TEST Routine 08/16/2022 1:15 PM FLUTE GRINDER extermination inspector (current) use of opiate analgesic from Last 3 Months or Most Recently Relevant to Health Maintenance Results * Compliance Drug Analysis Urine (08/16/2022 1:15 PM FLUTE GRINDER) Comprehensive Drug Analysis Summary Report FINAL 08/23/2022 [...] Non-blood Collection / Unknown 08/16/2022 1:15 PM FLUTE GRINDER 08/16/2022 6:50 PM FLUTE GRINDER Narrative [facility] - 08/23/2022 6:06 PM CDT Performed at: - [facility] [address] [place], [place] [id number] Sock Turner: Nandini Garcia [facility], Phone: [phone] us Maddie Holden CARGO VESSEL STEWARDESS [facility] WALK[facility] - URINE ORDERAB LES Final Result [facility] [employer] [address] [place] [address], [facility] [phone] from Last 3 Months or Most Recently Relevant to Health Maintenance Insurance [employer] [place] [address] [address] Care Teams Machine Setter Automatic Relationship Specialty Start Date End Date No Ref-Primary, Physician PCP - General 08/29/23 Devon Esquivel PA-C [address] [place] [address] Assigned PCP 12/03/21 Keila Saunders LICSW [address] [place] [address] Varying Exceptionalities Teacher Varying Exceptionalities Teacher - Clinical 09/02/22
--- OUTSIDE RECORDS SUMMARY | 2024-10-24 14:38 | XMS_ITS | Continuity of Care Document ---
Author Organization [facility] Address [address] [place] [address] Phone Care Team Providers Care Corrosion Control Fitter Name Role Phone Sergio Sena MD Unavailable Unavailable Procedures Procedure Date Est Pt Eval 15 Min Offic/outpt E&m Estab [place] [address] 14 Offic/outpt E&m Estab [facility] 4 Offic/outpt E&m Estab [place] [address] 13 Offic/outpt E&[facility] 3 Offic/outpt E&m Estab [place] [address] 13 Offic/outpt E&m Estab [facility] 3 Offic/outpt E&m Estab [facility] 3 Offic/outpt E&m Estab Mod Offic/outpt E&m Estab [facility] Offic/outpt E&m Estab Mod Offic/outpt E&m Estab Mod Offic/outpt E&m Estab [facility] Offic/outpt E&m Estab Mod Offic/outpt E&m Estab [facility] Offic/outpt E&m Estab Mod Offic/outpt E&m Estab Low Offic/outpt E&m Estab [facility] Offic/outpt E&m Estab [facility] Offic/outpt E&m Estab Low Offic/outpt E&m Estab [facility] Offic/outpt E&m Estab [facility] Offic/outpt E&m Estab Low Offic/outpt E&m Estab Low Offic/outpt E&m Estab Low Offic/outpt E&m Estab Low Offic/outpt E&m Est[facility] 0 Offic/outpt E&m Estab Low Offic/outpt E&m Estab Low Offic/outpt E&m Estab Mod Offic/outpt E&m Estab [facility] Offic/outpt E&m Estab Min Offic/outpt E&m Estab Low Offic/outpt E&m Estab [facility]-dc 2 10 Offic/outpt E&m Est[facility] 0 Offic/outpt E&m Estab Minor 10 10 Offic/outpt E&m Estab Minor 10 10 Offic/outpt E&m Estab Minor 10 10 Offic/outpt E&m Estab [facility] 2 09 Offic/outpt E&m Estab [facility] 9 Offic/outpt E&m Estab [facility] 9 Offic/outpt E&m Estab Lowmod 9 Offic/outpt E&m Estab [facility] 9 Offic/outpt E&m Estab Low-mod 9 Offic/outpt E&m Estab Lowmod 9 Offic/outpt E&m Estab [facility] 8 Offic/outpt E&m Estab Low-mod 8 Offic/outpt E&m Estab Low-mod 8 Offic/outpt E&m Estab Low-mod 8 Offic/outpt E&m Estab Low-mod 8 Offic/outpt E&m Estab Low-mod 8 Offic/outpt E&m Estab Low-mod 7 Offic/outpt E&m Estab [facility] 7 Offic/outpt E&m Estab Low-mod 7 Offic/outpt [...] Providers Copied on Encounter ИРИНА Dahl, [address] [facility] [address], [place], [id number], tel:[phone] [facility] No Information 5 Nathen Hill. [address], [id number], [place]. tel:[phone] Est Pt Eval 15 Min [facility], [address] [facility] [address], [place], [address], tel:[phone] [facility] No Information No Information Referring Provider: Aneta Wright, [address] [place], [address]. tel:[phone] Offic/outpt E&m Estab Mod-hi 2 [facility], [address] [facility] [address], [place], [address], tel:[phone] [facility] No Information No Information Referring Provider: Aneta Wright, [address] [place], [address]. tel:[phone] Offic/outpt E&m Estab Low-mod [facility], [address], [place], [place], [address], [place] tel:[phone] [facility] No Information 4 No Information Referring Provider: Aneta Wright, [address] [facility], [place], [address]. tel:[phone] Offic/outpt E&m Estab Mod-hi 2 [facility], [facility], [address], [place], [place], [address], [place] tel:[phone] [facility] No Information 3 No Information Referring Provider: Aneta Wright, [address] [facility], [place], [address]. tel:[phone] Offic/outpt E&m Estab Low-mod [facility], [facility], [address], [place], [address], [place] tel:[phone] [facility] No Information 3 No Information Referring Provider: Aneta Wright, [address] [facility], [place], [address]. tel:[phone] Offic/outpt E&m Estab Mod-hi 2 [facility], [facility], [address], [place], [place], [address], [place] tel:[phone] [facility] No Information 3 No Information Referring Provider: Aneta Wright, [address] [place], [address]. tel:[phone] Offic/outpt E&m Estab Low-mod [facility], [facility], [address], [place], [place], [address], [place] tel:[phone] [facility] No Information 3 No Information Referring Provider: Aneta Wright, [address] [place], [address]. tel:[phone] Offic/outpt E&m Estab Low-mod [facility], [facility], [address], [place], [place], [address], [place] tel:[phone] [facility] No Information 3 No Information Referring Provider: Aneta Wright, [address] [facility], [place], [address]. tel:[phone] Offic/outpt E&m Estab Mod [facility], [facility], [address], [place], [place], [address], [place] tel:[phone] [facility] No Information 3 No Information Referring Provider: Aneta Wright, [address] [place], [address]. tel:[phone] Offic/outpt E&m Estab [facility], [facility], [address], [place], [address], [place] tel:[phone] [facility] No Information 3 No Information Referring Provider: Aneta Wright, [address] [place], [address]. tel:[phone] Offic/outpt E&m Estab [facility], [facility], [address], [place], [address], [place] tel:[phone] [facility] No Information 2 No Information Referring Provider: Aneta Wright, [address] [place], [address]. tel:[phone] Offic/outpt E&m Estab [facility], [facility], [address], [place], [address], tel:[phone] [facility] No Information 2 No Information Referring Provider: Aneta Wright, [address] [facility], [place], [address]. tel:[phone] Offic/outpt E&m Estab [facility], [facility], [address], [place], [place], [address], [place] tel:[phone] [facility] No Information No Information Referring Provider: Aneta Wright, [address] [facility], [place], [address]. tel:[phone] Offic/outpt E&m Estab [facility], [facility], [address], [place], [place], [address], [place] tel:[phone] [facility] No Information No Information Referring Provider: Aneta Wright, [address] [facility], [place], [address]. tel:[phone] Offic/outpt E&m Estab [facility], [facility], [address], [place], [place], [address], [place] tel:[phone] [facility] No Information No Information Referring Provider: Aneta Wright, [address] [facility], [place], [address]. tel:[phone] Offic/outpt E&m Estab [facility], [facility], [address], [place], [place], [address], [place] tel:[phone] [facility] No Information No Information Referring Provider: Aneta Wright, [address] [facility], [place], [address]. tel:[phone] Offic/outpt E&m Estab Low [facility], [facility], [address], [place], [place], [address], [place] tel:[phone] [facility] No Information No Information Referring Provider: William Matthew, [address], [place], [address]. tel:[phone] Offic/outpt E&m Estab Mod [facility], [address], [place], [place], [address], [place] tel:[phone] [facility] No Information No Information Referring Provider: William Matthew, [address], [place], [address]. tel:[phone] Offic/outpt E&m Estab Mod [facility], [address], [place], [place], [address], [place] tel:[phone] [facility] No Information No Information Referring Provider: William Matthew, [address], [place], [address]. tel:[phone] Offic/outpt E&m Estab Low [facility], [address], [place], [place], [address], [place] tel:[phone] [facility] No Information No Information Referring Provider: William Matthew, [address], [place], [address]. tel:[phone] [facility], [address], [place], [place], [address], [place] tel:[phone] [facility] No Information No Information Referring Provider: William Matthew, [address], [place], [address]. tel:[phone] [facility], [address], [place], [place], [address], [place] tel:[phone] [facility] No Information 1 Dobrowski [employer] Mile. [address] [facility] [address], [place], [address], [place]. tel:[phone] Referring Provider: William Matthew, [address], [place], [address]. tel:[phone] [facility], [facility], [address], [place], [place], [address], [place] tel:[phone] [facility] No Information 1 Dobrowski [employer] Mile. [address] [facility] [address], [place], [address], [place]. tel:[phone] Referring Provider: William Matthew, [address], [place], [address]. tel:[phone] [facility], [address], [place], [place], [address], [place] tel:[phone] [facility] No Information 1 Dobrowski [employer] Mile. [address] [facility] [address], [place], [address], [place]. tel:[phone] Referring Provider: William Matthew, [address], [place], [address]. tel:[phone] [facility], [address], [place], [place], [address], [place] tel:[phone] [facility] No Information 1 Dobrow[address] [employer] [address]. [address] [facility] [address], [place], [address], [place]. tel:[phone] Referring Provider: William Matthew, [address], [place], [address]. tel:[phone] [facility], [facility], [address] , [place], [place], [address], [place] tel:[phone] [facility] No Information 1 No Information Referring Provider: William Matthew, [address], [place], [address]. tel:[phone] Offic/outpt E&m Estab Low-mod [facility], [facility], [address], [place], [place], [address], [place] tel:[phone] [facility] No Information 0 Bobo Treadwell. [address] [address], [place], [address], [place]. tel:[phone] Referring Provider: William Matthew, [address], [place], [address]. tel:[phone] [facility], [address] , [place], [place], [address], [place] tel:[phone] [facility] No Information 0 Ravin Rider. [address] , [address], [place], [address], [place]. tel:[phone] Referring Provider: William Matthew, [address], [place], [address]. tel:[phone] [facility], [address], [place], [place], [address], [place] tel:[phone] [facility] No Information 0 Kiley Masters. [address] [place], [place], [address], [place]. tel:[phone] Referring Provider: William Matthew, [address], [place], [address]. tel:[phone] [facility], [address], [place], [place], [address], [place] tel:[phone] [facility] No Information 4 0 Ravin Rider. [address], [place], [address], [place]. tel:[phone] Referring Provider: William Matthew, [address], [place], [address]. tel:[phone] [facility], [address], [place], [place], [address], [place] tel:[phone] [facility] No Information 3 0 Ravin Rider. [address], [place], [address], [place]. tel:[phone] Referring Provider: William Matthew, [address], [place], [address]. tel:[phone] [facility], [address], [place], [place], [address], [place] tel:[phone] [facility] No Information 0 Ravin Rider. [address], [place], [address], [place]. tel:[phone] Referring Provider: William Matthew, [address], [place], [address]. tel:[phone] [facility], [address], [place], [place], [address], [place] tel:[phone] [facility] No Information 0 Ravin Phillip [address], [place], [address], [place]. tel:[phone] Referring Provider: William Matthew, [address], [place], [address]. tel:[phone] Offic/outpt E&m Estab Mod-hi 2 [facility], [address], [place], [place], [address], [place] tel:[phone] [facility] No Information 0 Ravin Rider. [address], [address], [place], [address], [place]. tel:[phone] Referring Provider: William Matthew, [address], [place], [address]. tel:[phone] Offic/outpt E&m Estab Low-mod [facility], [facility], [address], [place], [place], [address], [place] tel:[phone] [facility] No Information 0 Ravin Rider. [address] , [address], [place], [address], [place]. tel:[phone] Referring Provider: William Matthew, [address], [place], [address]. tel:[phone] Offic/outpt E&m Estab Minor 10 [facility], [address], [place], [place], [address], [place] tel:[phone] [facility] No Information 0 Bobo Treadwell. [address] [facility] [address], [place], [address], [place]. tel:[phone] Referring Provider: William Matthew, [address], [place], [address]. tel:[phone] Offic/outpt E&m Estab Minor 10 [facility], [facility], [address] [facility] [address], [place], [place], [address], [place] tel:[phone] [facility] No Information 3-201 0 Dobrowski [employer] Mile. [address] [facility] [address], [place], [address], [place]. tel:[phone] Referring Provider: William Matthew, [address], [place], [address]. tel:[phone] Offic/outpt E&m Estab Minor 10 [facility], [facility], [address] [facility] [address], [place], [place], [address], [place] tel:[phone] [facility] No Information 6-201 0 Dobrowski [employer] Mile. [address] [facility] [address], [place], [address], [place]. tel:[phone] Referring Provider: William Matthew, [address], [place], [address]. tel:[phone] Offic/outpt E&m Estab Mod-hi 2 [facility], [facility], [address] [facility] [address], [place], [place], [address], [place] tel:[phone] [facility] No Information 1200 9 Dobrowski [employer] Mile. [address] [facility] [address], [place], [address], [place]. tel:[phone] Referring Provider: William Matthew, [address], [place], [address]. tel:[phone] Offic/outpt E&m Estab Low-mod [facility], [facility], [address] [facility] [address], [place], [place], [address], [place] tel:[phone] [facility] No Information 7-200 9 Dobrowski [employer] Mile. [address] [facility] [address], [place], [address], [place]. tel:[phone] Referring Provider: William Matthew, [address], [place], [address]. tel:[phone] Offic/outpt E&m Estab Low-mod [facility], [facility], [address] [facility] [address], [place], [place], [address], [place] tel:[phone] [facility] No Information 3200 9 Dobrowski [employer] Mile. [address] [facility] [address], [place], [address], [place]. tel:[phone] Referring Provider: William Matthew, [address], [place], [address]. tel:[phone] Offic/outpt E&m Estab Low-mod [facility], [facility], [address] [facility] [address] [address], [place], [place], [address], [place] tel:[phone] [facility] No Information 5200 9 Mey Edwards. [address] [place], [address], [place]. Referring Provider: William Matthew, [address], [place], [address]. tel:[phone] Offic/outpt E&m Estab Low-mod [facility], [facility], [address] [facility] [address], [place], [place], [address], [place] tel:[phone] [facility] No Information 3 0-200 9 Dobrowski [employer] Mile. [address] [facility] [address], [place], [address], [place]. tel:[phone] Referring Provider: William Matthew, [address], [place], [address]. tel:[phone] Offic/outpt E&m Estab Low-mod [facility], [facility], [address], [place], [place], [address], [place] tel:[phone] [facility] No Information 5-200 9 Dobrowski [employer] Mile. [address] [facility] [address], [place], [address], [place]. tel:[phone] Referring Provider: William Matthew, [address], [place], [address]. tel:[phone] Offic/outpt E&m Estab Low-mod [facility], [facility], [address] [facility] , [place], [place], [address], [place] tel:[phone] [facility] No Information 8-200 9 Dobrowski [employer] [address]. [address] [facility] [address], [place], [address], [place]. tel:[phone] Referring Provider: William Matthew, [address], [place], [address]. tel:[phone] Offic/outpt E&m Estab Low-mod [facility], [facility], [address], [place], [place], [address], [place] tel:[phone] [facility] No Information 3-200 8 Dobrowski [employer] Mile. [address] [facility] [address], [place], [address], [place]. tel:[phone] Referring Provider: William Matthew, [address], [place], [address]. tel:[phone] Offic/outpt E&m Estab Low-mod [facility], [address], [place], [place], [address], [place] tel:[phone] [facility] No Information 9 8 Ravin Rider. [address], [place], [address], [place]. tel:[phone] Referring Provider: William Matthew, [address], [place], [address]. tel:[phone] Offic/outpt E&m Estab Low-mod [facility], [facility], [address], [place], [place], [address], [place] tel:[phone] [facility] No Information 5 8 Ravin Rider. [address], [place], [address], [place]. tel:[phone] Referring Provider: William Matthew, [address], [place], [address]. tel:[phone] Offic/outpt E&m Estab Low-mod [facility], [facility], [address], [place], [place], [address], [place] tel:[phone] [facility] No Information 8 Ravin Rider. [address], [place], [address], [place]. tel:[phone] Referring Provider: William Matthew, [address], [place], [address]. tel:[phone] Offic/outpt E&m Estab Low-mod [facility], [facility], [address], [place], [place], [address], [place] tel:[phone] [facility] No Information 0-200 8 Ravin Rider. [address], [place], [address], [place]. tel:[phone] Referring Provider: William Matthew, [address], [place], [address]. tel:[phone] Offic/outpt E&m Estab Low-mod [facility], [address], [place], [place], [address], [place] tel:[phone] [facility] No Information 2 8 Ravin Rider. [address], [place], [address], [place]. tel:[phone] Referring Provider: William Matthew, [address], [place], [address]. tel:[phone] Offic/outpt E&m Estab Low-mod [facility], [address], [place], [place], [address], [place] tel:[phone] [facility] No Information 8200 7 Ravin Rider. [address], [place], [address], [place]. tel:[phone] Referring Provider: William Matthew, [address], [place], [address]. tel:[phone] Offic/outpt E&m Estab Low-mod [facility], [address], [place], [place], [address], [place] tel:[phone] [facility] No Information 3200 7 Ravin Rider. [address], [place], [address], [place]. tel:[phone] Referring Provider: William Matthew, [address], [place], [address]. tel:[phone] Offic/outpt E&m Estab Low-mod [facility], [address], [place], [place], [address], [place] tel:[phone] [facility] No Information 7 Ravin Rider. [address], [place], [address], [place]. tel:[phone] Referring Provider: William Matthew, [address], [place], [address]. tel:[phone] Offic/outpt E&m Estab Low-mod [facility], [address], [place], [place], [address], [place] tel:[phone] [facility] No Information 7 Ravin Rider. [address], [place], [address], [place]. tel:[phone] Referring Provider: William Matthew, [address], [place], [address]. tel:[phone] Offic/outpt E&m Estab Low-mod [facility], [address], [place], [place], [address], [place] tel:[phone] [facility] No Information 7 Ravin Rider. [address], [place], [address], [place]. tel:[phone] Referring Provider: William Matthew, [address], [place], [address]. tel:[phone] Offic/outpt E&m Estab Low-mod [facility], [address], [place], [place], [address], [place] tel:[phone] [facility] No Information 7 Ravin Rider. [address] [facility], [address], [place]. tel:[phone] Referring Provider: William Matthew, [address] [facility] [address], [place], [address]. tel:[phone] Offic Cons New/estab Mod-hi 60 [facility], [address], [place], [place], [address], tel:[phone] [facility] No Information 7 Ravin Rider. [address] [facility], [facility] [address], [place], [address], [place]. tel:[phone] Referring Provider: William Matthew, [address] [facility] [address], [place], [facility]. tel:[phone] Family History Family Member Type Diagnosis Age [...]
--- OUTSIDE RECORDS SUMMARY | 2024-10-24 14:38 | XMS_ITS | Encounter Summary ---
Author Organization [facility] Address [address] [place] [address]. [place] [address] Care Team Providers Care Vp Design Name Role Phone Lisa Davey MD Primary Care Provider [phone] Odalys Phillips APRN RIVER TESTER Unavailable Mile vailaDevon Reyes PA-C Primary Care Provider [phone] Devon Esquivel PA-C Unavailable [phone] Maddie Holden ACQUISITIONS LOGISTICS ANALYST RIVER TESTER Unavailable [phone] Sinyigaya, Speciose CORRECTIONAL FOOD SERVICE SUPERVISOR Unavailable [phone] No Ref-Primary, Physician Primary Care Provider Sinyigaya, Speciose CORRECTIONAL FOOD SERVICE SUPERVISOR Unavailable [phone] Encounter Details Date Type Department Care Team (Late st Contact Info) Description 03/10/2017 Records - [facility] HE CONVERSION Scan, Non-Provider Social History Tobacco Use Types Packs/Day Years Used Date Smoking Tobacco: Never Assessed Comments Unknown Sex and Gender Information Value Date Recorded Sex Assigned at Not on file 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 Gender Identity Not on file Sexual Orientation Not on file documented as of this encounter Plan of Treatment Not on file documented as of this encounter Visit Diagnoses Not on filedocumented in this encounter Care Teams Vp Design Relationship Specialty Start Date End Date Lisa Davey MD PCP - General 11/08/13 12/30/21 Devon Esquivel PA-C [address] [place] [address] PCP - General Family Medicine 12/31/21 08/24/23 No Ref-Primary, Physician PCP - General 08/29/23 Odalys Phillips APRN RIVER TESTER Assigned Behavioral Health Provider 01/11/21 12/17/22 Devon Esquivel PA-C [address] [facility] [address] Assigned PCP 12/03/21 Maddie Holden APRN RIVER TESTER [address] [address] Assigned Pain Medication Provider 06/21/22 03/04/24 Keila Saunders LICSW [address] [place] [address] Medication Assistant Medication Assistant - Clinical 09/02/22 Keila Saunders LICSW [address] [place] [address] Assigned Behavioral Health Provider 10/04/23 08/04/24 documented as of this encounter
--- OUTSIDE RECORDS SUMMARY | 2024-10-24 14:38 | XMS_ITS | Clinical Summary ---
Author Organization [facility] Address [address] [place] [address] Care Team Providers Care Continuous Vulcanizing Machine Operator Name Role Phone Reno Burciaga AUTOMOBILE CARPETS MOLDER Unavailable [phone] Pcp, No Primary Care Provider Unavailabl e [...] months Pain medication agreement 08/19/2010 Overview (08/19/2010): [facility] pain clinic Has narcotic agreement with this pain clinic. Consult note is present in Epic. Tobacco dependence 03/16/2010 Incidental lung nodule 03/16/2010 Chronic back pain Overview (10/05/2011): goes to [facility] clinic, they prescribe meds Encounters Date Type Department Care Team Description 07/27/2024 Telephone [facility] [address] [place] [address] Temi Martinez PA Referral (location [...] on file Legal Sex Female 5:29 AM TRANSMISSION AND COORDINATION ENGINEER Gender Identity Not on file Sexual Orientation Not on file Obstetrics History Para Term AB IAB SAB Ectopic Multiple Livin g Live Births 8 6 6 2 Date Outcome GA Total Labor Labor/2nd/3rd Weight Sex Type Anes PTL Krsiten A1 A5 Name Clin SAB SAB SAB SAB SAB SAB Last Filed Vital Signs Vital Sign Reading Time Taken Comments Blood Pressure 118/88 06/22/2024 12:55 PM TRANSMISSION AND COORDINATION ENGINEER Pulse 91 06/22/2024 12:55 PM TRANSMISSION AND COORDINATION ENGINEER Temperature 37.1 C (98.8 F) 08/16/2016 8:55 AM TRANSMISSION AND COORDINATION ENGINEER Respiratory Rate 16 06/22/2024 12:55 PM TRANSMISSION AND COORDINATION ENGINEER Oxygen Saturation 92% 06/22/2024 12:55 PM TRANSMISSION AND COORDINATION ENGINEER Inhaled Oxygen Concentration - - Weight 60.1 kg (132 lb 9.6 oz) 06/22/2024 12:55 PM TRANSMISSION AND COORDINATION ENGINEER Height 161.2 cm (5' 3.47) 06/22/2024 12:[address] Body Mass Index 23.15 06/22/2024 12:55 PM TRANSMISSION AND COORDINATION ENGINEER Plan of Treatment Health Maintenance Due Date [...] booster 12/12/2030 12/12/2020, 06/13 (Completed outside of [facility]), 02/19/2000 Procedures Procedure Name Priority Date/Time Associated Diagnosis Comments HPV HIGH RISK Routine 06/22/2024 1:47 PM TRANSMISSION AND COORDINATION ENGINEER Screening for cervical cancer CHOLESTEROL,TOTAL Routine 03/14/2003 10: 34 AM CDT from Last 3 Months or Most Recently Relevant to Health Maintenance Results * HPV HIGH RISK (06/22/2024 1:47 PM TRANSMISSION AND COORDINATION ENGINEER) TYPE 16 Negative Negative 06/26/2024 2:47 PM TRANSMISSION AND COORDINATION ENGINEER [facility] TYPE 18 Negative Negative 06/26/2024 2:47 PM TRANSMISSION AND COORDINATION ENGINEER [facility] OTHER HIGH RISK TYPES Negative Negative 06/26/2024 2:47 PM TRANSMISSION AND COORDINATION ENGINEER [facility] Other (Cervical) Non-Blood / Unknown 06/22/2024 1:47 PM TRANSMISSION AND COORDINATION ENGINEER 06/25/2024 9:38 AM TRANSMISSION AND COORDINATION ENGINEER Narrative [facility] - 06/26/2024 2:47 PM TRANSMISSION AND COORDINATION ENGINEER HPV types 16, 18, 31, 33, 35, 39, 45, 51, 52, 56, 58, 59, 66 and 68 DNA were undetectable or below the pre-set threshold. Methodology: Eleazar Wilfredo 4800 HPV Test Temi MCCABE MICROBIOLOGY Final Result [facility] [address] [place] [address], * CHOLESTEROL,TOTAL (03/14/2003 10:34 AM CDT) CHOLESTEROL,TOT AL 165 110 - 199 mg/dL 03/14/2003 10:3 4 AM CDT Narrative 11/21/2003 7:30 AM CDT Ordered by an unspecified provider. Other Clinical Staff CHEMISTRY Final Resul t from Last 3 Months or Most Recently Relevant to Health Maintenance Insurance [facility] Care Teams Continuous Vulcanizing Machine Operator Relationship Specialty Start Date End Date Pcp, No . PCP - General 08/04/16 Reno Burciaga NP Pain Management Pain Management 05/18/11
--- OUTSIDE RECORDS SUMMARY | 2024-10-24 14:38 | XMS_ITS | Encounter Summary ---
Author Organization [facility] Address [address] [place] [address] Care Team Providers Care Computing Machine Operator Name Role Phone Devon Esquivel PA-C Primary Care Provider [phone] Devon Esquivel PA-C Unavailable [phone] Maddie Holden Asya LIVESTOCK FEEDER WELDING MACHINE OPERATOR HELPER GAS Unavailable [phone] Sinyigaya, Speciose AIRPLANE CLEANER Unavailable [phone] No Ref-Primary, Physician Primary Care Provider Sinyigaya, Speciose AIRPLANE CLEANER Unavailable [phone] Encounter Details Date Type Department Care Team (Late st Contact Info) Description 12/23/2022 MyC Medical Advice [facility] [place] [address] [place] [address] Sinyigaya, Speciose, AIRPLANE CLEANER [address] [place] [address] Social History Tobacco Use Types [...] on file Legal Sex Female 3:20 AM CHAR DUST CLEANER AND SALVAGER Gender Identity Not on file Sexual Orientation [...] documented as of this encounter Care Teams Computing Machine Operator Relationship Specialty Start Date End Date Devon Esquivel PA-C [address] [place] [address] PCP - General Family Medicine 12/31/21 08/24/23 No Ref-Primary, Physician PCP - General 08/29/23 Devon Esquivel PA-C [address] [place] [address] Assigned PCP 12/03/21 Maddie Holden APRN WELDING MACHINE OPERATOR HELPER GAS [address] [place], [place] [address] Assigned Pain Medication Provider 06/21/22 03/04/24 Keila Saunders LICSW [address] [place] [address] Receiver/Laborer Receiver/Laborer - Clinical 09/02/22 Keila Saunders LICSW [address] [place] [address] Assigned Behavioral Health Provider 10/04/23 08/04/24 documented as of this encounter
--- OUTSIDE RECORDS SUMMARY | 2024-10-24 14:38 | XMS_ITS | Encounter Summary ---
Author Organization [facility] Address [address] [place] [address] Care Team Providers Care Twisting Frame Fixer Name Role Phone Devon sEquivel PA-C Primary Care Provider [phone] Devon Esquivel PA-C Unavailable [phone] Maddie Holden APRN PICK REMOVER Unavailable [phone] Sinyigaya, Speciose DENTAL THERAPIST Unavailable [phone] No Ref-Primary, Physician Primary Care Provider Sinyigaya, Speciose DENTAL THERAPIST Unavailable [phone] Encounter Details Date Type Department Care Team (Late st Contact Info) Description 03/21/2023 MyC Medical Advice [facility] [place] [address] [place] [address] Sinyigaya, Speciose, DENTAL THERAPIST [address] [place] [address] Social History Tobacco Use Types [...] on file Legal Sex Female 3:20 AM HOSEMAN Gender Identity Not on file Sexual Orientation Not on file documented as of this encounter Plan of Treatment Not on file documented as of this encounter Visit Diagnoses Not on filedocumented in this encounter Additional Health Concerns Assessment Noted Time PHQ-9 Depression Total Score: 7 01/24/20 23 10:35 PM CDT documented as of this encounter Care Teams Twisting Frame Fixer Relationship Specialty Start Date End Date Devon Esquivel PA-C [address] [address] [facility] [place] [address] PCP - General Family Medicine 12/31/21 08/24/23 No Ref-Primary, Physician PCP - General 08/29/23 Devon Esquivel PA-C [address] [place] [address] Assigned PCP 12/03/21 Maddie Holden APRN PICK REMOVER [address] [place], [place] [address] Assigned Pain Medication Provider 06/21/22 03/04/24 Keila Saunders LICSW [address] [place] [address] Hotel Yardperson Hotel Yardperson - Clinical 09/02/22 Keila Saunders LICSW [address] [place] [address] Assigned Behavioral Health Provider 10/04/23 08/04/24 documented as of this encounter
--- OUTSIDE RECORDS SUMMARY | 2024-10-24 14:38 | XMS_ITS | Encounter Summary ---
Author Organization [facility] Address [address] [place] [address] Care Team Providers Care Gambling Dealer Name Role Phone Devon Esquivel PA-C Primary Care Provider [phone] Devon Esquivel PA-C Unavailable [phone] Maddie Holden APRN AUTOMOTIVE BRAKE TECHNICIAN Unavailable [phone] Sinyigaya, Speciose BRICK EXTRUDER OPERATOR Unavailable [phone] No Ref-Primary, Physician Primary Care Provider Sinyigaya, Speciose BRICK EXTRUDER OPERATOR Unavailable [phone] Encounter Details Date Type Department Care Team (Late st Contact Info) Description 03/07/2023 MyC Medical Advice [facility] [place] [address] [place] [address] Sinyigaya, Speciose, BRICK EXTRUDER OPERATOR [address] [place] [address] Social History Tobacco Use Types [...] on file Legal Sex Female 3:20 AM CRIME INVESTIGATOR SPECIAL AGENT Gender Identity Not on file Sexual Orientation Not on file documented as of this encounter Plan of Treatment Not on file documented as of this encounter Visit Diagnoses Not on filedocumented in this encounter Additional Health Concerns Assessment Noted Time PHQ-9 Depression Total Score: 7 01/24/20 23 10:35 PM CDT documented as of this encounter Care Teams Gambling Dealer Relationship Specialty Start Date End Date Devon Esquivel PA-C [address] [address] [facility] [place] [address] PCP - General Family Medicine 12/31/21 08/24/23 No Ref-Primary, Physician PCP - General 08/29/23 Devon Esquivel PA-C [address] [place] [address] Assigned PCP 12/03/21 Maddie Holden APRN AUTOMOTIVE BRAKE TECHNICIAN [address] [place], [place] [address] Assigned Pain Medication Provider 06/21/22 03/04/24 Keila Saunders LICSW [address] [place] [address] Customer Operations Intern Customer Operations Intern - Clinical 09/02/22 Keila Saunders LICSW [address] [place] [address] Assigned Behavioral Health Provider 10/04/23 08/04/24 documented as of this encounter
--- OUTSIDE RECORDS SUMMARY | 2024-10-24 14:38 | XMS_ITS | Encounter Summary ---
Author Organization [facility] Address [address] [place] [address]. [place] [address] Care Team Providers Care Cardiac Cath Lab Radiology Technologist Name Role Phone Lisa Davey MD Primary Care Provider [phone] Odalys Phillips APRN SOCK DRIER Unavailable Mile vailaDevon Reyes PA-C Primary Care Provider [phone] Devon Esquivel PA-C Unavailable [phone] Maddie Holden PATCH PRESS OPERATOR SOCK DRIER Unavailable [phone] Sinyigaya, Speciose MANAGER FIELD SALES Unavailable [phone] No Ref-Primary, Physician Primary Care Provider Sinyigaya, Speciose MANAGER FIELD SALES Unavailable [phone] Encounter Details Date Type Department Care Team (Late st Contact Info) Description 04/06/2018 Records - [facility] HE CONVERSION Scan, Non-Provider Social History Tobacco Use Types Packs/Day Years Used Date Smoking Tobacco: Never Assessed Comments Unknown Sex and Gender Information Value Date Recorded Sex Assigned at Not on file Legal Sex Female 3:20 AM CULLED FRUIT PACKER Gender Identity Not on file Sexual Orientation Not on file documented as of this encounter Plan of Treatment Not on file documented as of this encounter Visit Diagnoses Not on filedocumented in this encounter Care Teams Cardiac Cath Lab Radiology Technologist Relationship Specialty Start Date End Date Lisa Davey MD PCP - General 11/08/13 12/30/21 Devon Esquivel PA-C [address] [place] [address] PCP - General Family Medicine 12/31/21 08/24/23 No Ref-Primary, Physician PCP - General 08/29/23 Odalys Phillips APRN SOCK DRIER Assigned Behavioral Health Provider 01/11/21 12/17/22 Devon Esquivel PA-C [address] [facility] [place] [address] Assigned PCP 12/03/21 Maddie Holden APRN SOCK DRIER [address] [address] Assigned Pain Medication Provider 06/21/22 03/04/24 Keila Saunders LICSW [address] [place] [address] Counter Sales Representative Counter Sales Representative - Clinical 09/02/22 Keila Saunders LICSW [address] [place] [address] Assigned Behavioral Health Provider 10/04/23 08/04/24 documented as of this encounter
--- OUTSIDE RECORDS SUMMARY | 2024-10-24 14:38 | XMS_ITS | Encounter Summary ---
Author Organization [place] Address [facility] [address] Care Team Providers Care Vocational Guidance Counselor Name Role Phone Odalys Phillips APRN AIRCRAFT ENGINE TECHNICIAN Unavailable Mile Devon Rachel PA-C Primary Care Provider [phone] Devon Esquivel PA-C Unavailable [phone] Maddie Holden APRN AIRCRAFT ENGINE TECHNICIAN Unavailable [phone] Sinyigaya, Speciose REINFORCING STEEL WORKER Unavailable [phone] No Ref-Primary, Physician Primary Care Provider Sinyigaya, Speciose REINFORCING STEEL WORKER Unavailable [phone] Encounter Details Date Type Department Care Team (Late st Contact Info) Description 11/21/2022 MyC Medical Advice [facility] [address] [place] [address] Maddie Holden APRN AIRCRAFT ENGINE TECHNICIAN [address] [address] Social History Tobacco Use Types [...] on file Legal Sex Female 3:20 AM TRENCH DIGGER HELPER Gender Identity Not on file Sexual Orientation [...] documented as of this encounter Care Teams Vocational Guidance Counselor Relationship Specialty Start Date End Date Devon Esquivel PA-C [address] [facility] [address] PCP - General Family Medicine 12/31/21 08/24/23 No Ref-Primary, Physician PCP - General 08/29/23 Odalys Phillips APRN CNP Assigned Behavioral Health Provider 01/11/21 12/17/22 Devon Esquivel PA-C [address] [facility] [address] Assigned PCP 12/03/21 Maddie Holden APRN CNP [address] [facility] [address] [place], [place] [address] Assigned Pain Medication Provider 06/21/22 03/04/24 Keila Saunders LICSW [address] [place] [address] Studio Sales Associate Studio Sales Associate - Clinical 09/02/22 Keila Saunders REINFORCING STEEL WORKER [address] [place] [address] Assigned Behavioral Health Provider 10/04/23 08/04/24 documented as of this encounter
--- OUTSIDE RECORDS SUMMARY | 2024-10-24 14:38 | XMS_ITS | Encounter Summary ---
Author Organization [facility] Address [address] [facility] [place] [address] Care Team Providers Care Certified Forklift Operator Name Role Phone Devon Esquivel PA-C Primary Care Provider [phone] Devon Esquivel PA-C Unavailable [phone] Maddie Holden APRN HEALTH COMMISSIONER Unavailable + [phone] Sinyigaya, Speciose POWER ELECTRONICS RESEARCH ENGINEER Unavailable [phone] No Ref-Primary, Physician Primary Care Provider Sinyigaya, Speciose POWER ELECTRONICS RESEARCH ENGINEER Unavailable [phone] Encounter Details Date Type Department Care Team (Latest Contact Info) Description 08/04/2023 [facility] [address] [facility] [address] [place] [address] Maddie Holden APRN HEALTH COMMISSIONER [address] [place] [address] Chronic intractable pain (Primary Dx); [...] on file Legal Sex Female 3:20 AM DOOR OPENER Gender Identity Not on file Sexual Orientation Not on file documented as of this encounter Miscellaneous Notes * Telephone Encounter - Kate Us RN - 08/09/2023 12:58 PM DOOR OPENER Outreach X1. No answer and no option for VM. MARY GRACE Millan, RN Environmental Compliance Manager [facility] OPENER * Telephone Encounter - Maddie Holden APRN CNP - 08/09/2023 12:50 PM DOOR OPENER See my chart message sent to patient. [...] follow up on requests. Maddie Holden APRN, TOOL DESIGNER APPRENTICE-C [facility] OPENER * Telephone Encounter - Kat Parker RN - 08/09/2023 11:54 AM CST Call back to patient: Patient does not bring up anything about guide delegate at this time Reviewed that due to the current situation the medication are cancelled Patient reviews she is upset by this and reports some withdrawal symptoms at this time such as, Tremor, sweats, anxiety, increased HR. Reviewed withdrawal medications with patient such as hydroxyzine and tizanidine, patient would likethese sent to the [facility] which is listed in the chart. Patient understands and agrees to this situation and does state I guess I will just have to find someone else Please review and advise, please send withdrawal medications as prepared OPENER * Telephone Encounter - Shaila Macias - 08/09/2023 11:03 AM CST Pt called. She said that she talked to a concrete pile driver operator and she has the right to get a prescription today. She wants her prescription called in today. Please call Pt back to discuss. Thanks. OPENER * Telephone Encounter - Nayely Mcgovern RN - 08/08/2023 2:41 PM DOOR OPENER Patient called. Patient asked why her medications [...] done and neededto find a new provider. Devulcanizer Head informed patient that she would note all of this and send to her provider. OPENER * Telephone Encounter - Nayely Mcgovern RN - 08/05/2023 2:19 PM DOOR OPENER Call to pharmacy. Per provider, cancelled scripts for oxyCODONE (OXYCONTIN) 20 MG 12 hr tablet and oxyCODONE (ROXICODONE) 5 MG tablet at [facility] in [place]. OPENER documented in this encounter Plan of Treatment [...] Total Score: 8 06/16/19 24 11:53 AM DOOR OPENER documented as of this encounter Care Teams Certified Forklift Operator Relationship Specialty Start Date End Date Devon Esquivel PA-C [address] [address] [place] [address] PCP - General Family Medicine 12/31/21 08/24/23 No Ref-Primary, Physician PCP - General 08/29/23 Devon Esquivel PA-C [address] [place] [address] Assigned PCP 12/03/21 Maddie Holden APRN CNP [address] [facility] [address] [place] [address] Assigned Pain Medication Provider 06/21/22 03/04/24 Keila Saunders LICSW [address] [place] [address] Buncher Hand Buncher Hand - Clinical 09/02/22 Keila Saunders LICSW [address] [place] [address] Assigned Behavioral Health Provider 10/04/23 08/04/24 documented as of this encounter
--- OUTSIDE RECORDS SUMMARY | 2024-10-24 14:38 | XMS_ITS | Encounter Summary ---
Author Organization [place] Address [address] [place] [address] Care Team Providers Care Sales And Service Agent Name Role Phone Devon Esquivel PA-C Primary Care Provider [phone] Devon Esquivel PA-C Unavailable [phone] Maddie Holden Asya CONDITIONER TUMBLER HOME HEALTH LVN Unavailable [phone] Sinyigaya, Speciose REGIONAL TRAINER Unavailable [phone] No Ref-Primary, Physician Primary Care Provider Sinyigaya, Speciose REGIONAL TRAINER Unavailable [phone] Encounter Details Date Type Department Care Team (Late st Contact Info) Description 06/23/2023 MyC Medical Advice [facility] [address] [place] [address] Arnoldo Smiley Social History Tobacco Use [...] on file Legal Sex Female 3:20 AM HOSE HANDLER Gender Identity Not on file Sexual Orientation Not on file documented as of this encounter Plan of Treatment Not on file documented as of this encounter Visit Diagnoses Not on filedocumented in this encounter Additional Health Concerns Assessment Noted Time PHQ-9 Depression Total Score: 8 06/16/19 24 11:53 AM HOSE HANDLER documented as of this encounter Care Teams Sales And Service Agent Relationship Specialty Start Date End Date Devon Esquivel PA-C [address] [place] [address] PCP - General Family Medicine 12/31/21 08/24/23 No Ref-Primary, Physician PCP - General 08/29/23 Devon Esquivel PA-C [address] [place] [address] Assigned PCP 12/03/21 Maddie Holden APRN CNP [address] [place] [address] Assigned Pain Medication Provider 06/21/22 03/04/24 Keila Saunders LICSW [address] [place] [address] Black Studies Professor Black Studies Professor - Clinical 09/02/22 Keila Saunders LICSW [address] [place] [address] Assigned Behavioral Health Provider 10/04/23 08/04/24 documented as of this encounter
--- OUTSIDE RECORDS SUMMARY | 2024-10-24 14:38 | XMS_ITS | Encounter Summary ---
Author Organization [place] Address [address] [place] [address]. [place] [address] Care Team Providers Care Front Maker Lockstitch Name Role Phone Devon Esquivel PA-C Primary Care Provider [phone] Devon Esquivel PA-C Unavailable [phone] Maddie Holden APRN JOB COACHING Unavailable [phone] Sinyigaya, Speciose WORM RAISER Unavailable [phone] No Ref-Primary, Physician Primary Care Provider Sinyigaya, Speciose WORM RAISER Unavailable [phone] Reason for Visit * Reason Comments Medication Refill Encounter Details Date Type Department Care Team (Late st Contact Info) Description 02/13/2023 Refill [facility] [address] [place] [address] Devon Esquivel PA-C [id number] [place] [address] Medication Refill Social History Tobacco Use [...] on file Legal Sex Female 3:20 AM BREADING MACHINE TENDER Gender Identity Not on file Sexual Orientation [...] as final attempt to schedule. Carrie Boylemount Boarding Specialist * Telephone Encounter - Aylin Steinberg - 02/23/2023 10:40 AM CDT Unable to LVM requesting a call back for an appt. One more attempt will be made. Aylin Holcomb Lead Boarding Specialist * Telephone Encounter - Shy Butcher - 02/16/2023 1:18 PM CDT Sent GLOG message requesting a call back for an appt. Two more attempts will be made. Shy Severino Boarding Specialist * Telephone Encounter - Devon Esquivel PA-C [...] documented as of this encounter Care Teams Front Maker Lockstitch Relationship Specialty Start Date End Date Devon Esquivel PA-C [address] [place] [address] PCP - General Family Medicine 12/31/21 08/24/23 No Ref-Primary, Physician PCP - General 08/29/23 Devon Esquivel PA-C [address] [place] [address] Assigned PCP 12/03/21 Maddie Holden APRN CNP [address] [place] [address] Assigned Pain Medication Provider 06/21/22 03/04/24 Keila Saunders LICSW [address] [place] [address] Chip Bin Operator Chip Bin Operator - Clinical 09/02/22 Keila Saunders LICSW [address] [place] [address] Assigned Behavioral Health Provider 10/04/23 08/04/24 documented as of this encounter
--- OUTSIDE RECORDS SUMMARY | 2024-10-24 14:38 | XMS_ITS | Encounter Summary ---
Author Organization [place] Address [address] [place] [address] Care Team Providers Care Signal Fitter Name Role Phone Odalys Phillips APRN GOLD FRAME ASSEMBLER Unavailable Mile Devon Rachel PA-C Primary Care Provider [phone] Devon Esquivel PA-C Unavailable [phone] Maddie Holden APRN GOLD FRAME ASSEMBLER Unavailable [phone] Sinyigaya, Speciose VENETIAN BLIND MECHANIC Unavailable [phone] No Ref-Primary, Physician Primary Care Provider Sinyigaya, Speciose VENETIAN BLIND MECHANIC Unavailable [phone] Reason for Visit * Reason Onset Date Comments Medication Request 02/08/2022 oxyCODONE (RO XICODONE) 5 MG tablet AND oxyCODONE (OXYCONTIN) 20 MG 12 hr tablet Encounter Details Date Type Department Care Team (Late st Contact Info) Description 02/08/2022 Telephone [facility] [address] [facility] [address] [place] [address] Maddie Holden APRN GOLD FRAME ASSEMBLER [address] [place] [address] Medication Request (oxyCODONE (ROXICODONE) 5 [...] on file Legal Sex Female 3:20 AM ERISA ATTORNEY Gender Identity Not on file Sexual Orientation [...] start date: 02/14/22 Authorizing Provider: VIVIANE LAINEZ OUTSIDE RESIDENTIAL SALES PROFESSIONAL reviewed. Signed for provider who is out of office. Viviane Lainez MD [facility] * Telephone Encounter - Kat [...] Analia Velez - 02/08/2022 12:17 PM CDT [facility] Phone Message May a detailed message be left on voicemail: yes Reason for Call: Medication Refill Request Has the patient contacted the pharmacy for the refill? Yes Name of medication being requested: oxyCODONE (ROXICODONE) 5 MG tablet AND oxyCODONE (OXYCONTIN) 20 MG 12 hr tablet Provider who prescribed the medication: Pharmacy: [id number] - [place], [place] - [address] [place] Date medication is needed: 02/13/22 Action Taken: Message routed to: [facility] MPMB Pain Travel Screening: Not Applicable documented in this encounter Plan of Treatment Not on file documented as of this encounter Visit Diagnoses Diagnosis Degeneration of lumbar or lumbosacral intervertebral disc documented in this encounter Care Teams Signal Fitter Relationship Specialty Start Date End Date Devon Esquivel PA-C [address] [place] [address] PCP - General Family Medicine 12/31/21 08/24/23 No Ref-Primary, Physician PCP - General 08/29/23 Odalys Phillips APRN GOLD FRAME ASSEMBLER Assigned Behavioral Health Provider 01/11/21 12/17/22 Devon Esquivel PA-C [address] [place] [address] Assigned PCP 12/03/21 Maddie Holden APRN GOLD FRAME ASSEMBLER [address] [place] [address] Assigned Pain Medication Provider 06/21/22 03/04/24 Keila Saunders LICSW [address] [place] [address] Chartered Accountant Chartered Accountant - Clinical 09/02/22 Keila Saunders LICSW [address] [place] [address] Assigned Behavioral Health Provider 10/04/23 08/04/24 documented as of this encounter
--- OUTSIDE RECORDS SUMMARY | 2024-10-24 14:38 | XMS_ITS | Encounter Summary ---
Author Organization [place] Address [address] [place] [address] Care Team Providers Care Skid Strapper Name Role Phone Devon Esquivel PA-C Primary Care Provider [phone] Devon Esquivel PA-C Unavailable [phone] Maddie Hodlen APRN ACCOUNT DEVELOPMENT MANAGER Unavailable [phone] Sinyigaya, Speciose EXECUTIVE MANAGER Unavailable [phone] No Ref-Primary, Physician Primary Care Provider Sinyigaya, Speciose EXECUTIVE MANAGER Unavailable [phone] Encounter Details Date Type Department Care Team (Late st Contact Info) Description 02/07/2023 MyC Medical Advice [address] [address] Gladys Glover MA Social History [...] on file 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 [place] [address] Merchandising Intern Merchandising Intern - Clinical 09/02/22 Keila Saunders EXECUTIVE MANAGER [address] [place] [address] Assigned Behavioral Health Provider 10/04/23 08/04/24 documented as of this encounter
--- OUTSIDE RECORDS SUMMARY | 2024-10-24 14:38 | XMS_ITS | Encounter Summary ---
Author Organization [place] Address [address] [place] [address] Care Team Providers Care Staff Mine Warfare Officer Name Role Phone Devon Esquivel PA-C Primary Care Provider [phone] Devon Esquivel PA-C Unavailable [phone] Maddie Holden APRN DESK CLERKS SUPERVISOR Unavailable [phone] Sinyigaya, Speciose OPEN DEVELOPER OPERATOR Unavailable [phone] No Ref-Primary, Physician Primary Care Provider Sinyigaya, Speciose OPEN DEVELOPER OPERATOR Unavailable [phone] Encounter Details Date Type Department Care Team (Late st Contact Info) Description 04/18/2023 MyC Medical Advice [address] [address] Mikael Santoro, [place] Social History [...] on file 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 Gender Identity Not on file Sexual Orientation Not on file documented as of this encounter Plan of Treatment Not on file documented as of this encounter Visit Diagnoses Not on filedocumented in this encounter Additional Health Concerns Assessment Noted Time PHQ-9 Depression Total Score: 7 01/24/20 23 10:35 PM CDT documented as of this encounter Care Teams Staff Mine Warfare Officer Relationship Specialty Start Date End Date Devon Esquivel PA-C [address] [place] [address] PCP - General Family Medicine 12/31/21 08/24/23 No Ref-Primary, Physician PCP - General 08/29/23 Devon Esquivel PA-C [address] [place] [address] Assigned PCP 12/03/21 Maddie Holden APRN CNP [address] [place] [address] Assigned Pain Medication Provider 06/21/22 03/04/24 Keila Saunders LICSW [address] [place] [address] Steward/Stewardess Room Steward/Stewardess Room - Clinical 09/02/22 Keila Saunders LICSW [address] [place] [address] Assigned Behavioral Health Provider 10/04/23 08/04/24 documented as of this encounter
--- OUTSIDE RECORDS SUMMARY | 2024-10-24 14:38 | XMS_ITS | Encounter Summary ---
Author Organization [place] Address [address] [place] [address] Care Team Providers Care Toe Former Name Role Phone Devon Esquivel PA-C Primary Care Provider [phone] Devon Esquivel PA-C Unavailable [phone] Maddie Holden Asya HOST/HOSTESS RESTAURANT EMPLOYEE COMMUNICATIONS SPECIALIST Unavailable [phone] Sinyigaya, Speciose WARP DRESSER Unavailable [phone] No Ref-Primary, Physician Primary Care Provider Sinyigaya, Speciose WARP DRESSER Unavailable [phone] Encounter Details Date Type Department Care Team (Late st Contact Info) Description 12/23/2022 MyC Medical Advice [facility] [place] [address] [place] [address] Sinyigaya, Speciose, WARP DRESSER 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 [place] [address] County Library Director County Library Director - Clinical 09/02/22 Keila Saunders LICSW [address] [place] [address] Assigned Behavioral Health Provider 10/04/23 08/04/24 documented as of this encounter
--- OUTSIDE RECORDS SUMMARY | 2024-10-24 14:38 | XMS_ITS | Encounter Summary ---
Author Organization [place] Address [address] [place] [address] Care Team Providers Care Stock House Worker Name Role Phone Devon Esquivel PA-C Primary Care Provider [phone] Devon Esquivel PA-C Unavailable [phone] Maddie Holden APRN ELEMENTARY MATH TUTOR Unavailable [phone] Sinyigaya, Speciose FLYING II INSTRUCTOR Unavailable [phone] No Ref-Primary, Physician Primary Care Provider Sinyigaya, Speciose FLYING II INSTRUCTOR Unavailable [phone] Encounter Details Date Type Department Care Team (Late st Contact Info) Description 02/16/2023 [facility]isha Matthew [address] [address] Shy Butcher Social History Tobacco [...] on file 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 [place] [address] Doubler Helper Doubler Helper - Clinical 09/02/22 Keila Saunders LICSW [address] [place] [address] Assigned Behavioral Health Provider 10/04/23 08/04/24 documented as of this encounter
--- OUTSIDE RECORDS SUMMARY | 2024-10-24 14:38 | XMS_ITS | Encounter Summary ---
Author Organization [place] Address [address] [facility] [place] [address] Care Team Providers Care Laborer Marine Terminal Name Role Phone Odalys Phillips APRN BUSHEL GIRL Unavailable Mile Devon Rachel PA-C Primary Care Provider [phone] Devon Esquivel PA-C Unavailable [phone] Maddie Holden APRN BUSHEL GIRL Unavailable [phone] Sinyigaya, Speciose MANUFACTURING QUALITY TECHNICIAN Unavailable [phone] No Ref-Primary, Physician Primary Care Provider Sinyigaya, Speciose MANUFACTURING QUALITY TECHNICIAN Unavailable [phone] Reason for Visit * Reason Onset Date Comments Opioid Refill 12/06/2022 oxyCODONE (ROXIC ODONE) 5 MG tabletoxyCODONE (OXYCONTIN) 20 MG 12 hr tablet Encounter Details Date Type Department Care Team (Late st Contact Info) Description 12/06/2022 Refill [facility] [address] [facility] [address] [place] [address] Maddie Holden APRN BUSHEL GIRL [address] [place] [address] Opioid Refill (oxyCODONE (ROXICODONE) 5 [...] on file 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 E-prescribe to: [id number] - [place], [place] - [address] [facility] [address] Will route to nursing [place] for review and preparation of prescription(s). * [...] who prescribed the medication: Maddie Holden Pharmacy: [id number] - [place], [place] - [address] [place] Date medication is needed: 12/15/22 Action Taken: Message routed to: Other[facility] Travel Screening: Not Applicable documented [...] documented as of this encounter Care Teams Laborer Marine Terminal Relationship Specialty Start Date End Date Devon Esquivel PA-C [address] [place] [address] PCP - General Family Medicine 12/31/21 08/24/23 No Ref-Primary, Physician PCP - General 08/29/23 Odalys Phillips APRN BUSHEL GIRL Assigned Behavioral Health Provider 01/11/21 12/17/22 Devon Esquivel PA-C [address] [place] [address] Assigned PCP 12/03/21 Maddie Holden APRN BUSHEL GIRL [address] [address] Assigned Pain Medication Provider 06/21/22 03/04/24 Keila Saunders LICSW [address] [place] [address] Switch Maker Switch Maker - Clinical 09/02/22 Keila Saunders LICSW [address] [address] Assigned Behavioral Health Provider 10/04/23 08/04/24 documented as of this encounter
--- OUTSIDE RECORDS SUMMARY | 2024-10-24 14:38 | XMS_ITS | Encounter Summary ---
Author Organization [place] Address [facility] [place] [address] Care Team Providers Care Remote Encoding Center Manager Name Role Phone Lisa Davey MD Primary Care Provider [phone] Odalys Phillips APRN ICE CREAM FREEZER ASSISTANT Unavailable Mile Devon Rachel PA-C Primary Care Provider [phone] Devon Esquivel PA-C Unavailable [phone] Maddie Holden APRN ICE CREAM FREEZER ASSISTANT Unavailable [phone] Sinyigaya, Speciose GREENHOUSE OR NURSERY TRANSPLANTER Unavailable [phone] No Ref-Primary, Physician Primary Care Provider Sinyigaya, Speciose GREENHOUSE OR NURSERY TRANSPLANTER Unavailable [phone] Reason for Visit * Reason Onset Date Comments Opioid Refill 07/13/2021 oxycontin, oxyco done Encounter Details Date Type Department Care Team (Late st Contact Info) Description 07/13/2021 Telephone [facility] [address] [facility] [address] [place] [address] Maddie Holden APRN ICE CREAM FREEZER ASSISTANT [address] [facility] [address] [place] [address] Opioid Refill (oxycontin, oxycodone) Social [...] on file 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 ETING PROFESSOR * Telephone Encounter - Kady Mao S [...] Date of opioid agreement: 06/27/20 E-prescribe to [facility][id number] [facility] [address] [address] [address] [facility] [address] [facility] [address] [place] [address] pharmacy Will route to nursing pool for review and preparation of prescription(s). ETING PROFESSOR documented in this encounter Plan of Treatment Not on file documented as of this encounter Visit Diagnoses Diagnosis Degeneration of lumbar or lumbosacral intervertebral disc Other chronic pain Chronic pain syndrome Opioid type dependence, continuous (H) Opioid type dependence, continuous documented in this encounter Care Teams Remote Encoding Center Manager Relationship Specialty Start Date End Date Lisa Davey MD PCP - General 11/08/13 12/30/21 Devon Esquivel PA-C [address] [place] [address] PCP - General Family Medicine 12/31/21 08/24/23 No Ref-Primary, Physician PCP - General 08/29/23 Odalys Phlilips APRN ICE CREAM FREEZER ASSISTANT Assigned Behavioral Health Provider 01/11/21 12/17/22 Devon Esquivel PA-C [address] [place] [address] Assigned PCP 12/03/21 Maddie Holden APRN ICE CREAM FREEZER ASSISTANT [address] [facility] [address] [place], [place] [address] Assigned Pain Medication Provider 06/21/22 03/04/24 Keila Saunders LICSW [address] [place] [address] Shank Skinner Shank Skinner - Clinical 09/02/22 Keila Saunders, GREENHOUSE OR NURSERY TRANSPLANTER [address] [place] [address] Assigned Behavioral Health Provider 10/04/23 08/04/24 documented as of this encounter
--- OUTSIDE RECORDS SUMMARY | 2024-10-24 14:38 | XMS_ITS | Continuity of Care Document ---
Author Organization [facility] Address [address] [place] [address] Phone Care Team Providers Care Portfolio Director Name Role Phone Will MD PINEDA, Osorio Unavailable Unavailabl e Advance Directives Directive Yes / No Effective Date File Name No Information Encounters Encounter Description Practice Location Reason(s) For Visit Diagnoses Date Provider Providers Copied on Encounter [facility], [address] [place] [address], [id number], [place] tel:[phone] [facility] [place] No Information Will Osorio. [address] [place], [place], [id number], [place]. tel:[phone] Family History Family Member Type Diagnosis Age At Onset No Information Payers Payer name Insurance type Covered green party ID Authoriza tion(s) No Information Social History Type Description Quantity Date Captured Comments Alcohol Use Details Unknown Caffeine Use Details Unknown Tobacco Use Status No Information Smoking Status No Information Sex Female Chief Complaint And Reason For Visit No Information Reason For Referral Reason For Referral No Information Plan Of Treatment Date Type Action Status Goal Medication Reconciliation. D ue on due Goal Unhealthy drug use screening . Due on due Goal Update Social History. Due o n due Goal Lipid panel. Due on 025 due Goal Weight. Due on d ue Goal Tobacco Use. Due on 025 due Goal HPV. Due on due Goal FIT-DNA. Due on due Goal Review Allergy List. Due on due Goal FIT. Due on due Goal Zoster vaccine (1st). Due on due Goal PHQ-9. Due on du e Goal Hepatitis C screening. Due o n due Goal CT-Colonography. Due on due Goal Height. Due on d ue History Of Present Illness Encounter Date Complaint History Of Prese nt Illness No Information Functional Status Date Functional Assessmen t No Information Instructions Date Instruction Additional Infor mation No Information Assessments Type Assessment Date No Information Patient Care Teams Name Effective Dates (start - stop) Status Members No Information
[2024-10-24 14:54] LABS: Ethanol* < 0.01 % (0.01-0.03)
[2024-10-24] MEDS: POTASSIUM CHLORIDE 10 MEQ/100 ML PIGGYBACK 100 MEQ IVPB (15:07)
[2024-10-24] MEDS: LACTATED RINGERS 1000 ML 1,000 ML IV (16:51)
[2024-10-24 16:53] LABS: Appearance Urine Cloudy (Clear); Bilirubin Urine 2+ (Negative); Blood Urine 1+ (Negative); Glucose Urine Negative (Negative); Ketones Urine 2+ (Negative); Leukocyte Esterase Urine 1+ (Negative); Nitrite Urine Positive (Negative); Protein Urine 2+ (Negative); Specific Gravity Urine 1.025 (1.000-1.030); pH Urine 5.5 (5.0-8.5)
[2024-10-24 17:01] LABS: Color Urine Brown (Yellow)
[2024-10-24 17:09] LABS: Bacteria Urine Many; Squamous Epithelial Cell Urine Few (None-Few)
[2024-10-24 17:10] LABS: Hyaline Casts Urine Few (None-Few)
[2024-10-24 18:47] LABS: Lactate* 3.2 mmol/L (0.5-1.9)
[2024-10-24] MEDS: cefTRIAXone 1 GM in 0.9 % SODIUM CHLORIDE Mini-bag 100 ML IVPB (19:04)
[2024-10-24] MEDS: THIAMINE 250 MG in 0.9 % SODIUM CHLORIDE 100 ml 100 ML 102.5 MG IVPB (19:21)
[2024-10-24 19:44] LABS: Lipase* 249 U/L (23-300)
--- NOTE | 2024-10-24 20:43 | CRLHL7_ITS ---
For Patients: As a result of the Century Cures Act, medical imaging exams and procedure reports are released immediately into your electronic medical record. You may view this report before your referring provider. If you have questions, please contact your health care provider. INDICATION: DIFFICULTY SWALLOWING, ALCOHOL ABUSE, UPPER ABD PAIN. TECHNIQUE: CT chest, abdomen and pelvis acquired with 62 cc of Isovue 370 IV contrast. COMPARISON: None. FINDINGS: CHEST: Cardiovascular structures: Heart size is normal. Thoracic aorta and main pulmonary artery are normal in caliber. Mediastinum and jessica: Small calcified left hilar and mediastinal lymph nodes. No pathologic lymphadenopathy. Lungs and pleura: Calcified left upper lobe granuloma. No consolidation, pleural effusion, pneumothorax, or suspicious nodule. Chest wall and axilla: No mass or adenopathy. Bones: No suspicious bone lesions. Unremarkable for age. ABDOMEN AND PELVIS: Liver: Diffuse fatty infiltration. Normal contour. No suspicious mass. Gallbladder and bile ducts: Stones versus biliary sludge within the gallbladder. No mural thickening, pericholecystic fluid or biliary ductal dilatation. Pancreas: Unremarkable. Spleen: Scattered calcified granulomata. Adrenal glands: Unremarkable. Kidneys: Unremarkable. GI tract: Air-distended colon with small air-fluid levels. No renal thickening. No bowel obstruction. The appendix is not visualized. Vascular structures: Normal caliber abdominal aorta with mild atherosclerotic calcification. Lymph nodes: Unremarkable. Miscellaneous: Unremarkable. No free air or significant free fluid. Pelvic Organs: Unremarkable. Bones: L4-S1 posterior fusion changes. Otherwise, unremarkable for age IMPRESSION: 1. Air-distended colon with small air-fluid levels, nonspecific but can be seen with a diarrheal illness. 2. No other acute findings within the chest, abdomen, or pelvis. 3. Hepatic steatosis. Please note that all CT scans at this facility use dose modulation, iterative reconstruction, and/or weight-based dosing when appropriate to reduce radiation dose to as low as reasonably achievable. Dictated by Preston Cardenas MD @ 10/24/2024 10:12:42 PM (Electronically Signed)
[2024-10-24 20:52] LABS: Amphetamine Screen Urine Negative (Negative); Barbiturate Screen Urine Negative (Negative); Benzodiazepines Screen Urine Negative (Negative); Cannabinoid Screen Urine Negative (Negative); Cocaine Screen Urine Negative (Negative); Methadone Screen Urine Negative (Negative); Methamphetamines Screen Urine Negative (Negative); Opiate Screen Urine Negative (Negative); Oxycodone Screen Urine Negative (Negative); Phencyclidine Screen Urine Negative (Negative); Tricyclic Antidepressant Urine Negative (Negative)
[2024-10-24 21:21] LABS: Strep A DNA Probe* NOT DETECTED (Not Detectd)
[2024-10-24 21:27] LABS: Lactate* 2.2 mmol/L (0.5-1.9)
[2024-10-24 21:49] LABS: Chloride* 85 mmol/L (96-114); Sodium* 128 mmol/L (135-149)
[2024-10-24 21:52] LABS: Anion Gap 13 mEq/L (7-15); Blood Urea Nitrogen* 34 mg/dL (7-30); Calcium* 6.8 mg/dL (8.4-10.6); Carbon Dioxide* 30 mmol/L (20-32); Creatinine* 0.8 mg/dL (0.5-1.5); Est. Creatinine Clearance* 69.42; Estimated Glomerular Filt Rate 88 ml/min; Glucose* 217 mg/dL (60-115)
[2024-10-24 22:05] LABS: NT Pro B Type NatriureticPept* 682 pg/mL
[2024-10-24 22:06] LABS: Potassium* 2.3 mmol/L (3.6-5.1)
--- NOTE | 2024-10-24 23:40 | PM.IMHP1 ---
Assessment and Plan Assessment and plan (1) Wernicke encephalopathy: Problem comment: Admission on 10/24/2024 with up opthalmoplegia, poor balance, confusion and forgetfulness. Treatment with IV thiamine. PT OT and social problems specialist to evaluate Status: Acute (2) Alcohol use disorder, severe, dependence: Status: Acute (3) Chronic back pain: Problem comment: History of chronic back pain with chronic opioid use until June 2024. Recommend avoiding opioids or consider buprenorphine if requiring opioid for pain control. Status: Acute (4) Discharge planning issues: Problem comment: According to the family her living arrangements are not fit for him and had amputation and she is unable to care for herself. Will need to assess how she recovers from this current episode of illness to make further decisions about placement Status: Acute (5) Alcohol withdrawal: Problem comment: Currently having very mild alcohol withdrawal signs and symptoms. Low-dose phenobarbital is started. Consider additional phenobarbital if needed. Status: Acute (6) Pharyngitis: Problem comment: She reports chronic sore throat with pain with swallowing for months. Unclear if this is primarily a pharyngitis or esophagitis or both. Status: Acute (7) Esophagitis: Problem comment: Patient reports a few months of symptoms of both esophagitis and pharyngitis. She reports a lot of pain with swallowing. May need further evaluation with endoscopy to evaluate Status: Acute (8) Malnutrition: Problem comment: In addition to obvious thiamin deficiency patient likely also has multiple other nutritional deficiencies related to her poor intake of food and fluids other than alcohol. Family reports she has been losing weight. Status: Acute (9) H/O lumbosacral spine surgery: Problem comment: Remote history approximately 2005 Status: Acute (10) Hypokalemia: Status: Acute Plan 54-year-old female with severe alcohol use disorder, now exhibiting worn acute encephalopathy with inability to walk. Visual disturbances with some a evidence of ophthalmoplegia and mental confusion. She is admitted to the hospital for evaluation management of this including intravenous thiamin. She also has severe hypokalemia. She is requiring IV potassium as she is unable to swallow liquid or oral tablet potassium supplements. This is apparently primarily due to her sore throat. Her pharyngitis/esophagitis is of uncertain cause. Will treat her with the PPI for possible reflux and magic mouthwash to see if her throat pain can be improved. May need endoscopy to further evaluate. . Disposition is likely to be difficult due to her fairly severe disabilities and her severe illness/Wernicke he has encephalopathy. Total Time Spent Total Time Spent: Total time spent is 100 minutes in coordination of care and review of outside records and discussing with patient daughter and sister her critical illness and ongoing evaluation management of multiple problems outlined above. Hospitalist- H&P: HPI History of Present Illness Date Seen: 10/24/24 Chief complaint: weakness Narrative: Maki barone is a 54-year-old female brought to the emergency room by ambulance when her family became concerned that she was unable and unsafe to take care of herself. She has chronic alcohol abuse drinking 750 mL of vodka per day for at least the past year by her report. Her last drink was this morning though her alcohol level in the emergency department was undetectable. Her living arrangements in her home are unfit for human have occasion according to family. She has been failing to thrive. In the emergency department she was unable to walk and had difficulty with swallowing. Past history includes chronic pain problems for which she was previously on chronic opioids. This stopped with her last prescription in June 2024. Previously she was also on Belbuca with her last prescription in June 2024. She continues to have chronic back pain. Her sore throat has also been chronic going on for months. She reports it hurts to swallow. She has had no previous evaluation of this. Review of Systems Narrative: Patient reports chronic low back pain and also some mild right shoulder pain for which she thinks she might have hurt her shoulder when she fell recently. Poor historian and unable to give much details. [facility] Medical History (Updated 10/25/24 @ 00:53 by Gunner Henry MD) Malnutrition ?E46 - Unspecified protein-calorie malnutrition (ICD-10) Alcohol withdrawal ?F10.939 - Alcohol use, unspecified with withdrawal, unspecified (ICD-10) Discharge planning issues ?Z75.8 - Other problems related to medical facilities and other health care (ICD-10) Wernicke encephalopathy ?E51.2 - Wernicke's encephalopathy (ICD-10) Alcohol use disorder, severe, dependence ?F10.20 - Alcohol dependence, uncomplicated (ICD-10) Chronic back pain ?M54.9 - Dorsalgia, unspecified (ICD-10) ?G89.29 - Other chronic pain (ICD-10) Surgical History (Updated 10/25/24 @ 00:45 by Gunner Henry MD) H/O lumbosacral spine surgery ?Z98.890 - Other specified postprocedural states (ICD-10) Social History (Updated 10/25/24 @ 00:47 by Gunner Henry MD) Narrative: She lives in [place] in a home with her mother. I believe she lives in the basement. Her daughter and sister indicate that this space is unfit for habitation. She reports drinking 750 mL of vodka per day. She smokes 3/4 of a pack of cigarettes per day. Smoking Status: Current every day smoker What tobacco products do you use: cigarettes Smoking packs per day: 1 Smoking cigarettes per day: 20.0 Do you use any of these nicotine containing products: None How often do you have a drink containing alcohol: 4 or more times a week How many standard drinks containing alcohol do you have on a typical day: 10 or more How often do you have six or more drinks on one occasion: Daily or almost daily AUDIT-C Alcohol total score: 12 Non-prescribed substance use: denies use service: No Meds Home Medications and Allergies Home Medications ?Medication ?Instructions ?Recorded ?Confirmed ?Type gabapentin 300 mg capsule 300 mg PO 3XD 10/24/24 10/24/24 History Allergies Allergy/AdvReac Type Severity Reaction Status Date / Time Sulfa (Sulfonamide Allergy Verified 10/24/24 21:53 Antibiotics) Exam Narrative: Exam Narrative: She is alert and appears in no obvious distress. Occasional coarse tremor and course twitching is noted. Minimal moderate tremor in the hands noted. She is oriented to being in the hospital but unable or unwilling to give much detail of recent events. Speech is slow and mentation appear slow. Her speech is relatively fluent. She seems appropriate and answers appropriately. Mood and affect appear depressed. Head is without apparent trauma. Eyes are notable for episodes of dysconjugate gaze and rotary nystagmus observed during visual field testing and extraocular movement testing. She reports double vision with this as well. Oropharynx is normal without marked erythema or ulcerations. Neck is supple. She reports some tenderness with palpation over her anterior neck there is no adenopathy. No stridor. Respirations are clear to auscultation. Cardiovascular: S1, S2, regular rate and rhythm. No murmur gallop or rub. Abdomen: Bowel sounds active. Abdomen is soft with minimal tenderness. No mass. Skin is without rash. She has no jaundice. Mild tremor noted above. She has intact pedal pulses. She moves all 4 extremities fairly well. Const: Vital Signs, click to edit/add: Vital Signs - 24 hr 10/24/24 13:12 10/24/24 13:18 10/24/24 13:19 Temperature 96.8 F L Pulse Rate Pulse Rate [Left P ulse Oximeter] Pulse Rate [Left R adial] 90 Respiratory Rate 16 Blood Pressure Blood Pressure [Le ft Arm] Blood Pressure [Le ft Upper Arm] 86/67 L Pulse Oximetry 100 100 [facility] 10/24/24 13:36 10/24/24 13:38 10/24/24 13:46 Temperature Pulse Rate 108 H 113 H Pulse Rate [Left P ulse Oximeter] Pulse Rate [Left R adial] Respiratory Rate Blood Pressure 107/76 101/79 Blood Pressure [Le ft Arm] Blood Pressure [Le ft Upper Arm] Pulse Oximetry 95 82 L [facility] 10/24/24 13:50 10/24/24 14:00 10/24/24 14:01 Temperature Pulse Rate 106 H 97 103 H Pulse Rate [Left P ulse Oximeter] Pulse Rate [Left R adial] Respiratory Rate Blood Pressure 105/82 Blood Pressure [Le ft Arm] Blood Pressure [Le ft Upper Arm] Pulse Oximetry 100 100 95 [facility] 10/24/24 14:15 10/24/24 14:16 10/24/24 14:30 Temperature Pulse Rate 99 102 H 106 H Pulse Rate [Left P ulse Oximeter] Pulse Rate [Left R adial] Respiratory Rate Blood Pressure 105/84 Blood Pressure [Le ft Arm] Blood Pressure [Le ft Upper Arm] Pulse Oximetry 100 99 100 Oxygen Delivery [facility] 10/24/24 14:31 10/24/24 14:38 10/24/24 14:45 Temperature Pulse Rate 106 H 108 H Pulse Rate [Left P ulse Oximeter] Pulse Rate [Left R adial] 98 Respiratory Rate Blood Pressure 119/94 H Blood Pressure [Le ft Arm] Blood Pressure [Le ft Upper Arm] 119/64 Pulse Oximetry 100 94 100 Oxygen Delivery [facility] 10/24/24 14:46 10/24/24 15:00 10/24/24 15:01 Temperature Pulse Rate 111 H 105 H 106 H Pulse Rate [Left P ulse Oximeter] Pulse Rate [Left R adial] Respiratory Rate Blood Pressure 120/83 97/77 Blood Pressure [Le ft Arm] Blood Pressure [Le ft Upper Arm] Pulse Oximetry 100 100 100 Oxygen Delivery [facility] 10/24/24 15:15 10/24/24 15:16 10/24/24 15:30 Temperature Pulse Rate 107 H 108 H 108 H Pulse Rate [Left P ulse Oximeter] Pulse Rate [Left R adial] Respiratory Rate Blood Pressure 106/93 H Blood Pressure [Le ft Arm] Blood Pressure [Le ft Upper Arm] Pulse Oximetry 99 99 98 [facility] 10/24/24 15:31 10/24/24 15:45 10/24/24 15:46 Temperature Pulse Rate 108 H 107 H 109 H Pulse Rate [Left P ulse Oximeter] Pulse Rate [Left R adial] Respiratory Rate Blood Pressure 121/109 H 106/91 H Blood Pressure [Le ft Arm] Blood Pressure [Le ft Upper Arm] Pulse Oximetry 98 98 98 Oxygen Delivery [facility] 10/24/24 16:01 10/24/24 16:16 10/24/24 16:26 Temperature Pulse Rate 110 H Pulse Rate [Left P ulse Oximeter] Pulse Rate [Left R adial] Respiratory Rate Blood Pressure 102/82 107/81 Blood Pressure [Le ft Arm] Blood Pressure [Le ft Upper Arm] Pulse Oximetry 97 Oxygen Delivery [facility] 10/24/24 16:31 10/24/24 16:33 10/24/24 16:47 Temperature Pulse Rate 110 H 113 H Pulse Rate [Left P ulse Oximeter] Pulse Rate [Left R adial] Respiratory Rate Blood Pressure 102/83 Blood Pressure [Le ft Arm] Blood Pressure [Le ft Upper Arm] Pulse Oximetry 95 90 Oxygen Delivery [facility]t th[facility] 10/24/24 16:48 10/24/24 17:00 10/24/24 17:03 Temperature Pulse Rate 111 H 108 H Pulse Rate [Left P ulse Oximeter] Pulse Rate [Left R adial] Respiratory Rate Blood Pressure 95/81 100/54 L Blood Pressure [Le ft Arm] Blood Pressure [Le ft Upper Arm] Pulse Oximetry 99 97 [facility] 10/24/24 17:15 10/24/24 17:16 10/24/24 17:31 Temperature Pulse Rate 115 H 116 H Pulse Rate [Left P ulse Oximeter] Pulse Rate [Left R adial] Respiratory Rate Blood Pressure 99/69 106/73 Blood Pressure [Le ft Arm] Blood Pressure [Le ft Upper Arm] Pulse Oximetry 86 L 70 L Oxygen Delivery [facility] 10/24/24 17:46 10/24/24 18:01 10/24/24 18:17 Temperature Pulse Rate Pulse Rate [Left P ulse Oximeter] Pulse Rate [Left R adial] Respiratory Rate Blood Pressure 97/65 97/64 91/67 Blood Pressure [Le ft Arm] Blood Pressure [Le ft Upper Arm] Pulse Oximetry Oxygen Delivery [facility] 10/24/24 19:43 10/24/24 21:05 10/24/24 21:27 Temperature 97.6 F Pulse Rate Pulse Rate [Left P ulse Oximeter] Pulse Rate [Left R adial] 110 H 112 H 110 H Respiratory Rate 22 22 22 Blood Pressure Blood Pressure [Le ft Arm] Blood Pressure [Le ft Upper Arm] 83/62 L 82/71 L 106/81 Pulse Oximetry 96 95 97 Oxygen Delivery [facility] Room Air Room Air Room Air 10/24/24 22:25 Temperature 97.6 F Pulse Rate Pulse Rate [Left P ulse Oximeter] 109 H Pulse Rate [Left R adial] Respiratory Rate 22 Blood Pressure Blood Pressure [Le ft Arm] 93/64 Blood Pressure [Le ft Upper Arm] Pulse Oximetry 96 Oxygen Delivery [facility] Room Air Hospitalist - H&P: Result Labs Labs: Short CBC 10/24/24 Range/Units 13:36 WBC 8.79 (4.50-11.00) K/uL Hgb 11.9 L (12.0-16.0) gm/dL Hct 34.1 (33.0-51.0) % Plt Count 292 (140-440) K/uL BMP 10/24/24 10/24/24 13:36 21:27 Sodium 130 L 128 L Potassium 2.7 L* 2.3 L* Chloride 73 L 85 L Carbon Dioxide 26 30 BUN 36 H 34 H Creatinine 1.2 0.8 Glucose 140 H 217 H Calcium 8.2 L 6.8 L Liver Function 05/14/25 Range/Units 13:36 Total Bilirubin 1.0 (0.1-1.5) mg/dL Direct Bilirubin 0.7 H (0.0-0.5) mg/dL AST 49 H (12-35) U/L ALT 39 H (4-35) U/L Alkaline Phosphatase 87 (40-150) U/L Albumin 4.4 (3.3-5.0) g/dL Urine 10/24/24 Range/Units 16:30 Urine Color Brown A (Yellow) Urine Appearance Cloudy A (Clear) Urine pH 5.5 (5.0-8.5) Ur Specific [place] 1.025 (1.000-1.030) Urine Protein 2+ A (Negative) Urine Glucose (UA) Negative (Negative) Imaging CT Chest/Ab/Pelvis: Radiologist's impression: INDICATION: DIFFICULTY SWALLOWING, ALCOHOL ABUSE, UPPER ABD PAIN. TECHNIQUE: CT chest, abdomen and pelvis acquired with 62 cc of Isovue 370 IV contrast. COMPARISON: None. FINDINGS: CHEST: Cardiovascular structures: Heart size is normal. Thoracic aorta and main pulmonary artery are normal in caliber. Mediastinum and jessica: Small calcified left hilar and mediastinal lymph nodes. No pathologic lymphadenopathy. Lungs and pleura: Calcified left upper lobe granuloma. No consolidation, pleural effusion, pneumothorax, or suspicious nodule. Chest wall and axilla: No mass or adenopathy. Bones: No suspicious bone lesions. Unremarkable for age. ABDOMEN AND PELVIS: Liver: Diffuse fatty infiltration. Normal contour. No suspicious mass. Gallbladder and bile ducts: Stones versus biliary sludge within the gallbladder. No mural thickening, pericholecystic fluid or biliary ductal dilatation. Pancreas: Unremarkable. Spleen: Scattered calcified granulomata. Adrenal glands: Unremarkable. Kidneys: Unremarkable. GI tract: Air-distended colon with small air-fluid levels. No renal thickening. No bowel obstruction. The appendix is not visualized. Vascular structures: Normal caliber abdominal aorta with mild atherosclerotic calcification. Lymph nodes: Unremarkable. Miscellaneous: Unremarkable. No free air or significant free fluid. Pelvic Organs: Unremarkable. Bones: L4-S1 posterior fusion changes. Otherwise, unremarkable for age IMPRESSION: 1. Air-distended colon with small air-fluid levels, nonspecific but can be seen with a diarrheal illness. 2. No other acute findings within the chest, abdomen, or pelvis. 3. Hepatic steatosis.
[2024-10-24] MEDS: PHENobarbitaL 260 MG in 0.9 % SODIUM CHLORIDE 100 ml 100 ML 208 MG IVPB (23:45)
[2024-10-25] VITALS (18 sets, daily range): BP systolic 83–119; BP diastolic 60–95; PULSE 83–101; RESP 16–24; TEMP 36.4–36.6; O2SAT 94–100; BMI 23.0
[2024-10-25] MEDS: DIPHEN/LIDO/ALUM/MAG/SIMETH 5 ML SUSPENSION MUCOUS MEM (00:01)
[2024-10-25] MEDS: PANTOPRAZOLE SODIUM 40 MG INJ IVP (00:05)
[2024-10-25] MEDS: 0.9 % SODIUM CHLORIDE 250 ml IV (00:08)
[2024-10-25] MEDS: THIAMINE 250 MG in 0.9 % SODIUM CHLORIDE 100 ml 100 ML 102.5 MG IVPB (00:34)
[2024-10-25] MEDS: POTASSIUM CHLORIDE 10 MEQ/100 ML PIGGYBACK 100 MEQ IVPB ×7 (00:37→13:34)
--- NOTE | 2024-10-25 04:42 | PC.NURSE ---
Shift note: Pt arrived to the floor at 2150 on a stretcher accompanied by daughter and sister. Alert and [id number]
--- NOTE | 2024-10-25 04:57 | PC.NURSE ---
Shift note: Patient arrived to the floor at 2150 on stretcher accompanied by daughter and sister. Bp was soft at 93/67 on admission and has remained soft for the rest of the night. Alert and oriented, able to state her name and place. Patient came 2 IV lines at right AC and left wrist with about 600ml of KCL in 5% Dex/0.9% NS which was infusing at 250ml/hr. She appeared shaking and reported of chills. Warm blanket provided. Appeared week and reported of nausea. vomitus bag given but was not able to vomit. Scheduled treatment given. External urinary catheter was applied at 0215. MD was notified about patient taking more of the magic oral that was suppose to help her swallow the potassium capsules since patient complained of difficulty swallowing. MD asked to monitor patient. She has been in bed throughout the shift. No bladder or BM recorded.
[2024-10-25 06:30] LABS: Lactate* 2.4 mmol/L (0.5-1.9)
[2024-10-25 06:56] LABS: Chloride* 93 mmol/L (96-114); Sodium* 131 mmol/L (135-149)
[2024-10-25 06:59] LABS: Anion Gap 6 mEq/L (7-15); Blood Urea Nitrogen* 32 mg/dL (7-30); Calcium* 6.6 mg/dL (8.4-10.6); Carbon Dioxide* 32 mmol/L (20-32); Creatinine* 0.8 mg/dL (0.5-1.5); Est. Creatinine Clearance* 69.42; Estimated Glomerular Filt Rate 88 ml/min; Glucose* 161 mg/dL (60-115)
[2024-10-25 07:00] LABS: Magnesium* 1.8 mg/dL (1.5-2.6)
[2024-10-25 07:01] LABS: Eosinophils Absolute Auto 0.01 K/uL (0.00-0.50); Eosinophils Percent Auto 0.2 % (0.0-7.0); Hematocrit 25.6 % (33.0-51.0); Hemoglobin* 8.7 gm/dL (12.0-16.0); Immature Granulocytes Abs Auto 0.02 K/uL (0.00-0.30); Immature Granulocytes Pct Auto 0.4 %; Lymphocytes Percent Auto 14.5 % (20-44); Mean Corpuscular HGB Conc 34 gm/dL (32-36); Mean Corpuscular Hemoglobin 35 pg (26-34); Mean Corpuscular Volume 102 fL (80-100); Monocytes Percent Auto 5.4 % (0.0-11.0); Neutrophils Percent Auto 79.5 % (42.0-72.0); Platelet Count* 211 K/uL (140-440); RDW Coefficient of Variation % 14.6 % (11.5-15.5); White Blood Count* 5.18 K/uL (4.50-11.00)
[2024-10-25 07:11] LABS: Potassium* 2.7 mmol/L (3.6-5.1)
[2024-10-25 07:20] LABS: Slide Review Reflex No
[2024-10-25 08:08] LABS: Iron* 91 ug/dL (37-170)
[2024-10-25 08:18] LABS: Percent Iron Saturation 61 % (20-50); Total Iron Binding Capacity 148 ug/dL (265-497)
[2024-10-25 08:59] LABS: Vitamin B12* 286 pg/mL (243-894)
[2024-10-25] MEDS: POTASSIUM BICARB 25 MEQ EFFERVESCENT TAB PO (09:11)
[2024-10-25] MEDS: LORazepam 1 MG TABLET PO (09:13)
[2024-10-25] MEDS: OMEPRAZOLE 20 MG CAPSULE DR PO (09:15)
[2024-10-25] MEDS: FOLIC ACID 1 MG TABLET PO (09:15)
[2024-10-25] MEDS: ACETAMINOPHEN 325 MG TABLET 650 MG PO (09:15)
[2024-10-25] MEDS: GABAPENTIN 300 MG CAPSULE PO (09:15)
[2024-10-25] MEDS: MULTIVITAMIN/MINERALS 1 TABLET 1 TAB PO (09:15)
[2024-10-25] MEDS: THIAMINE 500 MG in 0.9 % SODIUM CHLORIDE 100 ml 100 ML 105 MG IVPB ×2 (09:16→21:48)
[2024-10-25] MEDS: KETOROLAC 15 MG/ML inj IVP (11:20)
[2024-10-25] MEDS: LIDOCAINE 5% PATCH 1 PATCH TRANSDERMA (11:21)
[2024-10-25] MEDS: 0.9 % SODIUM CHLORIDE 1000 ml 1,000 ML 125 ML IV (13:06)
[2024-10-25 13:59] LABS: Potassium* 3.5 mmol/L (3.6-5.1)
[2024-10-25] MEDS: THIAMINE 500 MG in 0.9 % SODIUM CHLORIDE 100 ml 100 ML 100 MG IVPB (15:02)
--- NOTE | 2024-10-25 15:04 | P.IMPN_ITS ---
Assessment and Plan Assessment and plan (1) Wernicke encephalopathy: Problem comment: Admission on 10/24/2024 with up opthalmoplegia, poor balance, confusion and forgetfulness. 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 Low-dose phenobarbital is started. Consider additional phenobarbital if needed. Denies history of seizures or DTs CIWA this morning 9 Status: Acute (4) Chronic back pain: Problem comment: History of chronic back pain with chronic opioid use until June 2024. Recommend avoiding opioids or consider buprenorphine if requiring opioid for pain control. CT shows L4-S1 posterior fusion changes, otherwise unremarkable Recurrent falls as of late Lidocaine patch, ice/heat, toradol, frequent repositioning PT/OT consults Outpatient follow-up with PCP and donation specialist Status: Acute (5) Chronic dental pain: Problem comment: Reports chronic pain with chewing solids subsequently swallowing large sized pieces of food or avoiding solids altogether and instead drinking more alcohol. H/o dental work/reconstruction approximately 9-10 years ago. No recent dental visit Outpatient follow-up with dentist Status: Acute (6) Pharyngitis: Problem comment: She reports chronic sore throat with pain with swallowing for months. As above, has pain with chewing foods so does not completely chew what she is eating, swal lowing large size food particles. H/o choking/coughing on clears. Unclear if this is primarily a pharyngitis or esophagitis or both. Quick strep negative AT [facility] consult for swallow study given choking/coughing episodes with liquid intake Outpatient follow-up with dentist -> PCP -> referral for further imaging/testing (EGD) Status: Acute (7) Esophagitis: Problem comment: Patient reports a few months of symptoms of both esophagitis and pharyngitis. She reports a lot of pain with swallowing. Continue PPI As above, outpatient follow-up Status: Acute (8) Malnutrition: Problem comment: In addition to obvious thiamin deficiency patient likely also has multiple other nutritional deficiencies related to her poor intake of food and fluids other than alcohol. Family reports she has been losing weight. Patient admits she prefers to drink alcohol rather than eat solid foods on a daily basis Nutrition consult when cognition improved Status: Acute (9) H/O lumbosacral spine surgery: Problem comment: Remote history approximately 2005 Chronic pain. Admits to drinking more alcohol for pain management. No longer using opioids Outpatient follow-up with donation specialist Status: Acute (10) Hypokalemia: Problem comment: Potassium 2.7 on admission, dropped to 2.3 despite replacement. Patient is not tolerating/not awake enough to take in appropriate oral replacement IV bumps ordered. 3.5 on recheck Continue oral pills b.i.d. x4 doses Status: Acute (11) Hypocalcemia: Problem comment: Calcium 6.6. Ionized ordered. Replace as necessary pending result Status: Acute (12) Hyponatremia: Problem comment: Sodium improved to 131, continue monitor Status: Acute (13) Anemia: Problem comment: Hemoglobin 8.7, 11.9 on admission. Suspect dilutional secondary to fluid resuscitation. RBC 2.5, HCT 25.6, MCV 102 Iron panel - iron, TIBC, % saturation, B12 ordered Status: Acute (14) Discharge planning issues: Problem comment: According to the family her living arrangements are not fit for him and had amputation and she is unable to care for herself. Will need to assess how she recovers from this current episode of illness to make further decisions about placement Daughter is working on possibly having her stay with her in [place]. She does not want to returning to her current home setting. Status: Acute (15) Hypotension: Problem comment: Intermittent, responsive to fluid resuscitation, continue to monitor Status: Acute Plan Monitoring CIWAs, suspect discharge 24-48 hours as discussed with daughter Total Time Spent Total Time Spent: Today I spent 75 minutes seeing the patient, reviewing Expanse and EPIC notes/diagnostics, discussing the care plan with our care time that includes social work, PT/OT, pharmacy, RT, correction and documenting my impressions and plan in the medical record. Subjective Date Seen: 10/25/24 Interval history: Patient is seen with daughter at bedside. Restless, groggy. Daughter reports she has noticed improvement from yesterday. Patient admits to mild headache. Denies chest pain or shortness of breath. Tolerating orals without nausea vomiting but has little appetite. Low back, chronic pain, is bothering her. Has been for years, worse in the past 6 months. Has had multiple falls over the last several months, including down the stairs. CT in the ED without acute findings. Exam Narrative: Exam Narrative: PHYSICAL EXAM General: Restless, mildly anxious, otherwise NAD HEENT: Normocephalic, atraumatic, sclera white, EOMI, oral mucosa moist Cardiovascular: RRR, S1S2. No pitting edema Pulmonary: CTA bilaterally without rhonchi, rales, expiratory wheezes. No dyspnea on room air Abdominal: Soft, nondistended, NTTP Neurological: Alert, answering questions appropriately, cranial nerves intact, no focal findings Extremities: No gross joint deformity or swelling. AROMI. Neurovascularly intact Skin: Warm, dry. Const: Vital Signs, click to edit/add: Vital Signs - 24 hr 10/24/24 15:15 10/24/24 15:16 10/24/24 15:30 Temperature Pulse Rate 107 H 108 H 108 H Pulse Rate [Left P ulse Oximeter] Pulse Rate [Left R adial] Respiratory Rate Blood Pressure 106/93 H Blood Pressure [Le ft Arm] Blood Pressure [Le ft Upper Arm] Pulse Oximetry 99 99 [facility] 10/[facility]/24 15:31 10/24/24 15:45 10/24/24 15:46 Temperature Pulse Rate 108 H 107 H 109 H Pulse Rate [Left P ulse Oximeter] Pulse Rate [Left R adial] Respiratory Rate Blood Pressure 121/109 H 106/91 H Blood Pressure [Le ft Arm] Blood Pressure [Le ft Upper Arm] Pulse Oximetry 98 98 98 [facility] 10/24/24 16:01 10/24/24 16:16 10/24/24 16:26 Temperature Pulse Rate 110 H Pulse Rate [Left P ulse Oximeter] Pulse Rate [Left R adial] Respiratory Rate Blood Pressure 102/82 107/81 Blood Pressure [Le ft Arm] Blood Pressure [Le ft Upper Arm] Pulse Oximetry 97 Oxygen Delivery Pa [facility] 10/24/24 16:31 10/24/24 16:33 10/24/24 16:47 Temperature Pulse Rate 110 H 113 H Pulse Rate [Left P ulse Oximeter] Pulse Rate [Left R adial] Respiratory Rate Blood Pressure 102/83 Blood Pressure [Le ft Arm] Blood Pressure [Le ft Upper Arm] Pulse Oximetry 95 90 [facility] 10/24/24 16:48 10/24/24 17:00 10/24/24 17:03 Temperature Pulse Rate 111 H 108 H Pulse Rate [Left P ulse Oximeter] Pulse Rate [Left R adial] Respiratory Rate Blood Pressure 95/81 100/54 L Blood Pressure [Le ft Arm] Blood Pressure [Le ft Upper Arm] Pulse Oximetry 99 97 [facility] 10/24/24 17:15 10/24/24 17:16 10/24/24 17:31 Temperature Pulse Rate 115 H 116 H Pulse Rate [Left P ulse Oximeter] Pulse Rate [Left R adial] Respiratory Rate Blood Pressure 99/69 106/73 Blood Pressure [Le ft Arm] Blood Pressure [Le ft Upper Arm] Pulse Oximetry 86 L 70 L [facility] 10/24/24 17:46 10/24/24 18:01 10/24/24 18:17 Temperature Pulse Rate Pulse Rate [Left P ulse Oximeter] Pulse Rate [Left R adial] Respiratory Rate Blood Pressure 97/65 97/64 91/67 Blood Pressure [Le ft Arm] Blood Pressure [Le ft Upper Arm] Pulse Oximetry Oxygen Delivery [facility] 10/24/24 19:43 10/24/24 21:05 10/24/24 21:27 Temperature 97.6 F Pulse Rate Pulse Rate [Left P ulse Oximeter] Pulse Rate [Left R adial] 110 H 112 H 110 H Respiratory Rate 22 22 22 Blood Pressure Blood Pressure [Le ft Arm] Blood Pressure [Le ft Upper Arm] 83/62 L 82/71 L 106/81 Pulse Oximetry 96 95 97 Oxygen Delivery [facility] Room Air Room Air Room Air 10/24/24 22:25 10/24/24 22:25 10/24/24 23:00 Temperature 97.6 F 97.6 F Pulse Rate Pulse Rate [Left P ulse Oximeter] 109 H 109 H Pulse Rate [Left R adial] Respiratory Rate 22 22 22 Blood Pressure Blood Pressure [Le ft Arm] 93/64 93/64 Blood Pressure [Le ft Upper Arm] Pulse Oximetry 96 96 96 [facility] Room Air Room Air 10/25/24 00:00 10/25/24 01:00 10/25/24 02:08 Temperature 97.8 F 97.5 F L 97.6 F Pulse Rate Pulse Rate [Left P ulse Oximeter] 99 101 H 100 Pulse Rate [Left R adial] Respiratory Rate 22 22 22 Blood Pressure Blood Pressure [Le ft Arm] 87/64 L 90/60 119/95 H Blood Pressure [Le ft Upper Arm] Pulse Oximetry 96 94 97 Oxygen Delivery Me [facility]od Room Air Room Air Room Air 10/25/24 07:00 10/25/24 08:00 10/25/24 08:05 Temperature 97.7 F 97.7 F 97.5 F L Pulse Rate Pulse Rate [Left P ulse Oximeter] 100 100 95 Pulse Rate [Left R adial] Respiratory Rate 24 24 18 Blood Pressure Blood Pressure [Le ft Arm] 103/76 103/76 92/81 Blood Pressure [Le ft Upper Arm] Pulse Oximetry 99 99 99 Oxygen Delivery [facility] Room Air Room Air Room Air 10/25/24 09:15 10/25/24 10:45 10/25/24 11:00 Temperature 97.7 F Pulse Rate 95 Pulse Rate [Left P ulse Oximeter] 99 Pulse Rate [Left R adial] Respiratory Rate 16 Blood Pressure Blood Pressure [Le ft Arm] 89/69 L Blood Pressure [Le ft Upper Arm] Pulse Oximetry 100 Oxygen Delivery Me thod 10/25/24 12:05 10/25/24 13:04 Temperature 97.7 F Pulse Rate Pulse Rate [Left P ulse Oximeter] 99 92 Pulse Rate [Left R adial] Respiratory Rate 16 16 Blood Pressure Blood Pressure [Le ft Arm] 89/69 L 110/62 Blood Pressure [Le ft Upper Arm] Pulse Oximetry 100 97 [facility] Labs Labs: Laboratory Results - last 24 hr 10/24/24 10/24/24 10/24/24 13:36 16:30 17:54 WBC RBC Hgb Hct MCV MCH MCHC RDW Coeff of Clay Plt Count Neut % (Auto) Lymph % (Auto) Lane % (Auto) Eos % (Auto) Baso % (Auto) Neut # (Auto) Lymph # (Auto) Lane # (Auto) Eos # (Auto) Baso # (Auto) Abs Immat Gran (auto) Imm/Tot Granulo (auto) Sodium Potassium Chloride Carbon Dioxide Anion Gap BUN Creatinine Estimated Creat Clear Estimated GFR Glucose Lactate Calcium Magnesium Iron TIBC % Saturation Ferritin NT-Pro-B Natriuret Pep Lipase 249 Vitamin B12 Urine Color Brown A Urine Appearance Cloudy A Urine pH 5.5 Ur Specific Hubbard 1.025 Urine Protein 2+ A Urine Glucose (UA) Negative Urine Ketones 2+ A Urine Blood 1+ A Urine Nitrite Positive A Urine Bilirubin 2+ A Urine Urobilinogen 1.0 Ur Leukocyte Esterase 1+ A Urine RBC 2-5 A Urine WBC 5-10 A Ur Squamous Epith Cells Few Urine Bacteria Many A Hyaline Casts Few Urine Opiates Screen Negative Ur Oxycodone Screen Negative Urine Methadone Screen Negative Ur Barbiturates Screen Negative U Tricyclic Antidepress Negative Ur Phencyclidine Scrn Negative Ur Amphetamines Screen Negative U Methamphetamines Scrn Negative U Benzodiazepines Scrn Negative Urine Cocaine Screen Negative U Marijuana (THC) Screen Negative Ur Drug Screen Comment See Note Group A Strep DNA Lab Acknowledgement Test Added 10/24/24 10/24/24 10/24/24 18:44 20:32 20:50 WBC RBC Hgb Hct MCV MCH MCHC RDW Coeff of Clay Plt Count Neut % (Auto) Lymph % (Auto) Lane % (Auto) Eos % (Auto) Baso % (Auto) Neut # (Auto) Lymph # (Auto) Lane # (Auto) Eos # (Auto) Baso # (Auto) Abs Immat Gran (auto) Imm/Tot Granulo (auto) Sodium Potassium Chloride Carbon Dioxide Anion Gap BUN Creatinine Estimated Creat Clear Estimated GFR Glucose Lactate 3.2 H Calcium Magnesium Iron TIBC % Saturation Ferritin NT-Pro-B Natriuret Pep Lipase Vitamin B12 Urine Color Urine Appearance Urine pH Ur Specific Hubbard Urine Protein Urine Glucose (UA) Urine Ketones Urine Blood Urine Nitrite Urine Bilirubin Urine Urobilinogen Ur Leukocyte Esterase Urine RBC Urine WBC Ur Squamous Epith Cells Urine Bacteria Hyaline Casts Urine Opiates Screen Ur Oxycodone Screen Urine Methadone Screen Ur Barbiturates Screen U Tricyclic Antidepress Ur Phencyclidine Scrn Ur Amphetamines Screen U Methamphetamines Scrn U Benzodiazepines Scrn Urine Cocaine Screen U Marijuana (THC) Screen Ur Drug Screen Comment Group A Strep DNA NOT DETECTED Lab Acknowledgement Test Added 10/24/24 10/24/24 10/25/24 21:24 21:27 05:55 WBC 5.18 RBC 2.50 L Hgb 8.7 L Hct 25.6 L MCV 102 H MCH 35 H MCHC 34 RDW Coeff of Clay 14.6 Plt Count 211 Neut % (Auto) 79.5 H Lymph % (Auto) 14.[address] % (Auto) 5.4 Eos % (Auto) 0.2 Baso % (Auto) 0.0 Neut # (Auto) 4.10 Lymph # (Auto) 0.[address] # (Auto) 0.30 Eos # (Auto) 0.01 Baso # (Auto) 0.00 Abs Immat Gran (auto) 0.02 Imm/Tot Granulo (auto) 0.4 Sodium 128 L 131 L Potassium 2.3 L* 2.7 L* Chloride 85 L 93 L Carbon Dioxide 30 32 Anion Gap 13 6 L BUN 34 H 32 H Creatinine 0.8 0.8 Estimated Creat Clear 69.42 69.42 Estimated GFR 88 88 Glucose 217 H 161 H Lactate 2.2 H 2.4 H Calcium 6.8 L 6.6 L Magnesium 2.0 1.8 Iron 91 TIBC 148 L % Saturation 61 H Ferritin 282.0 H NT-Pro-B Natriuret Pep 682 Lipase Vitamin B12 286 Urine Color Urine Appearance Urine pH Ur Specific Hubbard Urine Protein Urine Glucose (UA) Urine Ketones Urine Blood Urine Nitrite Urine Bilirubin Urine Urobilinogen Ur Leukocyte Esterase Urine RBC Urine WBC Ur Squamous Epith Cells Urine Bacteria Hyaline Casts Urine Opiates Screen Ur Oxycodone Screen Urine Methadone Screen Ur Barbiturates Screen U Tricyclic Antidepress Ur Phencyclidine Scrn Ur Amphetamines Screen U Methamphetamines Scrn U Benzodiazepines Scrn Urine Cocaine Screen U Marijuana (THC) Screen Ur Drug Screen Comment Group A Strep DNA Lab Acknowledgement Test Added 10/25/24 10/25/24 07:41 13:40 WBC RBC Hgb Hct MCV MCH MCHC RDW Coeff of Clay Plt Count Neut % (Auto) Lymph % (Auto) Lane % (Auto) Eos % (Auto) Baso % (Auto) Neut # (Auto) Lymph # (Auto) Lane # (Auto) Eos # (Auto) Baso # (Auto) Abs Immat Gran (auto) Imm/Tot Granulo (auto) Sodium Potassium 3.5 L Chloride Carbon Dioxide Anion Gap BUN Creatinine Estimated Creat Clear Estimated GFR Glucose Lactate Calcium Magnesium Iron TIBC % Saturation Ferritin NT-Pro-B Natriuret Pep Lipase Vitamin B12 Urine Color Urine Appearance Urine pH Ur Specific Hubbard Urine Protein Urine Glucose (UA) Urine Ketones Urine Blood Urine Nitrite Urine Bilirubin Urine Urobilinogen Ur Leukocyte Esterase Urine RBC Urine WBC Ur Squamous Epith Cells Urine Bacteria Hyaline Casts Urine Opiates Screen Ur Oxycodone Screen Urine Methadone Screen Ur Barbiturates Screen U Tricyclic Antidepress Ur Phencyclidine Scrn Ur Amphetamines Screen U Methamphetamines Scrn U Benzodiazepines Scrn Urine Cocaine Screen U Marijuana (THC) Screen Ur Drug Screen Comment Group A Strep DNA Lab Acknowledgement Test Added
--- NOTE | 2024-10-25 15:15 | REH.PT ---
PT orders to evaluate and treat. Upon attempting evaluation, pt was sleeping in recliner and not alert enough to be seen. PT assisted nsg with transfer from recliner to bed with an assist x2 using pivot transfer. Will attempt eval tomorrow when pt is more alert and awake for session.
--- NOTE | 2024-10-25 15:17 | REH.OT ---
Consult order received. Pt. unable to participate in OT eval today d/t lack of alertness. Will reattempt when appropriate.
--- NOTE | 2024-10-25 16:33 | PC.SOCIAL ---
Discharge planning: health service worker met with pt's daughter, Anatoly, who states that she does not want her mother going home after this hospital stay. Pt's daughter states that her mother has had a long history of alcohol use. Pt's daughter did state that she did not realize it had gotten this bad again. Pt's daughter thinks that if the pt eventually moves closer to her in [place] it might help the pt with motivation to get better because Anatoly has several children which are the pt's grandchildren and she thinks that might help her mother continue to have a will to live. health service worker did also ask Anatoly if she thought her mother would be open to going to rehab for her alcohol use and Anatoly stated that she wasn't sure, but thought she might consider it. Pt's daughter did state that she was looking into Power of Plate Drying Machine Tender and this social sciences department chair provided her with information on Advanced Care Planning. Anatoly stated that she was driving back to [facility], but [facility] Anatoly thinks she will be back on Tuesday. health service worker also explained to Anatoly that there will be a better idea of what is recommended for the pt at discharge tomorrow after PT/OT assess her. PT/OT were unable to assess the pt today due to her being too sleepy. Social work to follow-up as needed.
[2024-10-25] MEDS: 5 % DEXTROSE IN LAC RINGER'S 1,000 ML 125 ML IV (16:39)
[2024-10-25] MEDS: 0.9 % SODIUM CHLORIDE 1000 ml 1,000 ML 500 ML IV (16:41)
--- NOTE | 2024-10-25 19:09 | PC.NURSE ---
End of shift-- pt has been pleasant. Oriented to person and occasionally place this morning, too drowsy to answer orientation questions this afternoon. Hypotensive this evening with B/P 83/65. MD was notified and pt was given 500ml NS bolus per MD order. Recheck B/P slightly improved at 88/74. Other VSS and WNL and pt is afebrile. SPO2 maintained >90% on RA. CIWA 0-9 and pt was given PO ativan once. Pt was restless this morning and appeared uncomfortable. She was able to verbalize that her lower back hurt. She was given Tylenol, a lidocaine patch and toradol per Md order with apparent relief. Following Toradol administration, pt's daughter stated that she has an allergy to Ibuprofen. Maddie Law was notified and pt was watched closely for a reaction, but none was noted. Pt also has not voided since this morning, bladder was scanned immediately after completion of bolus for 180ml. External catheter applied and will update charge nurse to notify MD. LS coarse this afternoon with inspiratory rhonchi and occasional inspiratory wheezes noted. Telemetry showed NSR with prolonged QT of 0.44. She denied nausea and ate bites of breakfast with assistance, but slept through both lunch and dinner. Daughter was at bedside today and appears loving and supportive.
[2024-10-25] MEDS: 0.9 % SODIUM CHLORIDE 500 ML 500 ML IV (19:57)
[2024-10-25 22:51] LABS: HCO3 VBG 27 mmol/L (21-28); PCO2 VBG 44 mmHG (40-50); PO2 VBG 59.5 mmHG (25-47); pH VBG 7.402 (7.32-7.43)
[2024-10-25 23:13] LABS: D Dimer Quantitative* 0.63 ug/ml (0.00-0.50)
[2024-10-26] VITALS (11 sets, daily range): BP systolic 90–110; BP diastolic 67–83; PULSE 90–104; RESP 16–20; TEMP 36.5–36.9; O2SAT 94–99
[2024-10-26] MEDS: 5 % DEXTROSE IN LAC RINGER'S 1,000 ML 125 ML IV ×2 (03:51→20:31)
--- NOTE | 2024-10-26 05:03 | PC.NURSE ---
Shift note: Patient had difficulty making urine at the start of the shift. Bladder scan was 308. O2 desaturated to as low as 84% on room air and appeared weak and sleepy. informed and ordered oxygen and Gutierrez. Oxygen started at 2130 with 2L which was reduced to 1L and 0.5L because O2 saturation improved with the oxygen therapy. Patient has been on 0.5L for the rest of the night. She continued to be sleepy but was able to respond to my questions after the Gutierrez was passed at 2200. About 300ml of very concentrated tea-colored urine drained after the Gutierrez. Son has been with patient throughout the night starting at 0130.
[2024-10-26 07:03] LABS: Basophils Absolute Auto 0.01 K/uL (0.00-0.30); Basophils Percent Auto 0.2 % (0.0-3.0); Eosinophils Absolute Auto 0.02 K/uL (0.00-0.50); Eosinophils Percent Auto 0.4 % (0.0-7.0); Hematocrit 24.2 % (33.0-51.0); Immature Granulocytes Abs Auto 0.02 K/uL (0.00-0.30); Immature Granulocytes Pct Auto 0.4 %; Lymphocytes Absolute Auto 1.44 K/uL (0.90-2.90); Lymphocytes Percent Auto 31.4 % (20-44); Mean Corpuscular HGB Conc 33 gm/dL (32-36); Mean Corpuscular Hemoglobin 35 pg (26-34); Mean Corpuscular Volume 107 fL (80-100); Monocytes Percent Auto 4.4 % (0.0-11.0); Neutrophils Absolute Auto 2.89 K/uL (1.7-7.0); Neutrophils Percent Auto 63.2 % (42.0-72.0); Platelet Count* 174 K/uL (140-440); RDW Coefficient of Variation % 14.9 % (11.5-15.5); Red Blood Count 2.27 m/uL (4.00-5.20); White Blood Count* 4.58 K/uL (4.50-11.00)
[2024-10-26 07:06] LABS: Slide Review Reflex No
[2024-10-26 07:11] LABS: Chloride* 102 mmol/L (96-114)
[2024-10-26 07:12] LABS: Albumin* 2.3 g/dL (3.3-5.0); Potassium* 3.1 mmol/L (3.6-5.1); Sodium* 135 mmol/L (135-149)
[2024-10-26 07:15] LABS: Alanine Aminotransferase* 22 U/L (4-35); Alkaline Phosphatase* 63 U/L (40-150); Anion Gap 4 mEq/L (7-15); Aspartate Amino Transferase* 34 U/L (12-35); Bilirubin Direct* 0.3 mg/dL (0.0-0.5); Bilirubin Total* 0.4 mg/dL (0.1-1.5); Blood Urea Nitrogen* 24 mg/dL (7-30); Calcium* 6.9 mg/dL (8.4-10.6); Carbon Dioxide* 29 mmol/L (20-32); Creatinine* 0.5 mg/dL (0.5-1.5); Est. Creatinine Clearance* 111.07; Estimated Glomerular Filt Rate 111 ml/min; Glucose* 109 mg/dL (60-115); Total Protein* 4.5 g/dL (6.0-8.3)
--- NOTE | 2024-10-26 10:00 | CRLHL7_ITS ---
For Patients: As a result of the Century Cures Act, medical imaging exams and procedure reports are released immediately into your electronic medical record. You may view this report before your referring provider. If you have questions, please contact your health care provider. INDICATION: coughing/choking on liquids TECHNIQUE: Modified barium swallow. Fluoroscopic time 1 minute 38 seconds COMPARISON: None FINDINGS/IMPRESSION: Anatomical structures are normal. Discoordination with the oral phase. No episodes of penetration or aspiration. No obstruction. Dictated by Michael Albrecht MD @ 10/26/2024 12:19:16 PM (Electronically Signed)
[2024-10-26] MEDS: MULTIVITAMIN/MINERALS 1 TABLET 1 TAB PO (11:42)
[2024-10-26] MEDS: THIAMINE 500 MG in 0.9 % SODIUM CHLORIDE 100 ml 100 ML 105 MG IVPB ×3 (11:42→20:31)
[2024-10-26] MEDS: FOLIC ACID 1 MG TABLET PO (11:42)
[2024-10-26] MEDS: OMEPRAZOLE 20 MG CAPSULE DR PO ×2 (11:42→20:31)
[2024-10-26] MEDS: GABAPENTIN 300 MG CAPSULE PO ×3 (11:42→20:31)
[2024-10-26] MEDS: SODIUM CHLORIDE 0.9 % (FLUSH) 10 ML SYRINGE 5 ML IVF (11:42)
[2024-10-26] MEDS: LIDOCAINE 5% PATCH 1 PATCH TRANSDERMA (11:43)
[2024-10-26] MEDS: NICOTINE 14 mg PATCH 1 PATCH TRANSDERMA (11:58)
[2024-10-26] MEDS: LORazepam 1 MG TABLET PO (13:56)
[2024-10-26] MEDS: hydrOXYzine pamoate 25 MG CAPSULE PO ×2 (15:13→20:31)
--- NOTE | 2024-10-26 15:25 | PM.IMPN1 ---
Assessment and Plan Assessment and plan (1) Wernicke encephalopathy: Problem comment: Admission on 10/24/2024 with up opthalmoplegia, poor balance, confusion and forgetfulness. Treatment with IV thiamine Continue PT OT Substation Electrician met with patient and her daughter to discuss resources May need SNF placement Status: Acute (2) Alcohol use disorder, severe, dependence: Problem comment: patient services manager for chemical dependency resources Status: Chronic (3) Alcohol withdrawal: Problem comment: Currently having very mild alcohol withdrawal signs and symptoms. Low-dose phenobarbital is started. Consider additional phenobarbital if needed. Denies history of seizures or DTs CIWA this morning 9 - remain elevated, utilizing Ativan as needed Status: Acute (4) Chronic back pain: Problem comment: History of chronic back pain with chronic opioid use until June 2024. Recommend avoiding opioids or consider buprenorphine if requiring opioid for pain control. CT shows L4-S1 posterior fusion changes, otherwise unremarkable Recurrent falls as of late Lidocaine patch, ice/heat, toradol, frequent repositioning PT/OT consults Outpatient follow-up with PCP and health and safety specialist Status: Acute (5) Chronic dental pain: Problem comment: Reports chronic pain with chewing solids subsequently swallowing large sized pieces of food or avoiding solids altogether and instead drinking more alcohol. H/o dental work/reconstruction approximately 9-10 years ago. No recent dental visit Outpatient follow-up with dentist Status: Acute (6) Pharyngitis: Problem comment: She reports chronic sore throat with pain with swallowing for months. As above, has pain with chewing foods so does not completely chew what she is eating, swallowing large size food particles. H/o choking/coughing on clears. Unclear if this is primarily a pharyngitis or esophagitis or both. Quick strep negative MASH GRINDER consult for swallow study given choking/coughing episodes with liquid intake Video swallow completed 10/26. No penetration or aspiration noted on study. Recommending regular thin liquids, softer food items. Safe swallow strategies. Will follow for dysphagia management while in the hospital Outpatient follow-up with PCP -> referral for further imaging/testing (EGD) in the outpatient setting Status: Acute (7) Esophagitis: Problem comment: Patient reports a few months of symptoms of both esophagitis and pharyngitis. She reports a lot of pain with swallowing as well as chewing Continue PPI As above, outpatient follow-up Status: Acute (8) Malnutrition: Problem comment: In addition to obvious thiamin deficiency patient likely also has multiple other nutritional deficiencies related to her poor intake of food and fluids other than alcohol. Family reports she has been losing weight. Patient admits she prefers to drink alcohol rather than eat solid foods on a daily basis Nutrition consulted Status: Acute (9) H/O lumbosacral spine surgery: Problem comment: Remote history approximately 2005 Chronic pain. Admits to drinking more alcohol for pain management. No longer using opioids Outpatient follow-up with health and safety specialist Status: Acute (10) Hypokalemia: Problem comment: Potassium 2.7 on admission, dropped to 2.3 despite replacement. Patient is not tolerating/not awake enough to take in appropriate oral replacement IV bumps ordered. 3.5 on recheck Continue oral pills b.i.d. x4 doses - increase to 40mEq bid 3.1 on 10/26 Status: Acute (11) Hypocalcemia: Problem comment: Calcium 6.6. Ionized ordered. Replace as necessary pending result Ionized Ca 0.9. 2 g ordered, recheck 2 hours after completion. Continue replacement as needed Status: Acute (12) Hyponatremia: Problem comment: Sodium improved to 131 -> 135, continue to monitor Status: Acute (13) Anemia: Problem comment: Hemoglobin 8.7, 11.9 on admission. Suspect dilutional secondary to fluid resuscitation. RBC 2.5, HCT 25.6, MCV 102 Iron panel - iron, TIBC, % saturation, B12 ordered Fe 91, TIBC 148, % sat 61, B12 286, ferritin 282 Could be inflammatory anemia; dilutional in acute setting. No active bleed reported. 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 Will need to assess how she recovers from this current episode of illness to make further decisions about placement Daughter is working on possibly having her stay with her in [place]. She does not want to returning to her current home setting May require SNF patient services manager assisting Status: Acute (15) Hypotension: Problem comment: Intermittent, responsive to fluid resuscitation, continue to monitor Decreased urine output/retention reported, Gutierrez catheter placed Echocardiogram 10/26/24: 1. LVEF estimate 60-65%. Normal LV size and wall thickness. 2. Normal RV size and global function. 3. Mild MR and mild TR. 4. Normal RAP estimate. 5. No pericardial effusion. Status: Acute Plan Monitoring CIWAs, suspect discharge 24-48 hours as discussed with daughter Total Time Spent Total Time Spent: Today I spent 45 minutes seeing the patient, reviewing Expanse and EPIC notes/diagnostics, discussing the care plan with our care time that includes social work, PT/OT, pharmacy, RT, [facility] and documenting my impressions and plan in the medical record. Subjective Date Seen: 10/26/24 Interval history: Patient is seen sitting up in a chair today, son is at bedside. Eating mashed potatoes and meat loaf. No choking or coughing. Remains restless. Cognition mildly improved, remains slowed. CIWA up to 6. No nausea vomiting. Remains afebrile. Systolic blood pressures remain in the 90s. Exam Narrative: Exam Narrative: PHYSICAL EXAM General: Remains Restless, mildly anxious, slowed Cardiovascular: RRR, S1S2. No pitting edema Pulmonary: CTA bilaterally without rhonchi, rales, expiratory wheezes. No dyspnea on room air Neurological: Alert, answering questions appropriately though slowed, cranial nerves intact, no focal findings Extremities: No gross joint deformity or swelling. AROMI. Neurovascularly intact Skin: Warm, dry. Const: Vital Signs, click to edit/add: Vital Signs - 24 hr 10/25/24 16:00 10/25/24 18:20 10/25/24 19:00 Temperature 97.7 F 97.9 F Pulse Rate Pulse Rate [Left P ulse Oximeter] 90 83 85 Respiratory Rate 20 18 18 Blood Pressure [Le ft Arm] 83/65 L 88/74 L 89/73 L Pulse Oximetry 98 96 95 Oxygen Delivery Me thod Room Air Room Air Room Air Oxygen Flow Rate 10/25/24 19:51 10/25/24 22:15 10/25/24 22:15 Temperature 97.9 F Pulse Rate Pulse Rate [Left P ulse Oximeter] 85 93 Respiratory Rate 18 18 18 Blood Pressure [Le ft Arm] 89/73 L Pulse Oximetry 95 98 Oxygen Delivery Me thod Room Air Nasal Cannula Oxygen Flow Rate 0.5 10/25/24 22:15 10/25/24 23:00 10/26/24 00:00 Temperature 97.7 F 97.9 F Pulse Rate 90 Pulse Rate [Left P ulse Oximeter] 93 93 Respiratory Rate 18 18 Blood Pressure [Le ft Arm] 85/62 L 90/68 Pulse Oximetry 98 94 Oxygen Delivery Me thod Room Air Nasal Cannula Oxygen Flow Rate 0.5 10/26/24 02:45 10/26/24 03:55 10/26/24 07:00 Temperature 97.9 F 97.9 F Pulse Rate Pulse Rate [Left P ulse Oximeter] 100 104 H Respiratory Rate 18 18 16 Blood Pressure [Le ft Arm] 91/71 93/71 Pulse Oximetry 94 94 99 Oxygen Delivery Me thod Nasal Cannula Nasal Cannula Nasal Cannula Oxygen Flow Rate 0.5 0.5 1 10/26/24 07:00 10/26/24 07:46 10/26/24 08:00 Temperature 97.7 F 97.7 F Pulse Rate 97 Pulse Rate [Left P ulse Oximeter] 98 98 Respiratory Rate 16 16 Blood Pressure [Le ft Arm] 91/68 91/68 Pulse Oximetry 99 99 Oxygen Delivery Me thod Nasal Cannula Room Air Oxygen Flow Rate 1 1 10/26/24 12:00 Temperature Pulse Rate Pulse Rate [Left P ulse Oximeter] 104 H Respiratory Rate 20 Blood Pressure [Le ft Arm] 94/67 Pulse Oximetry 99 Oxygen Delivery Me thod Room Air Oxygen Flow Rate Labs Labs: Laboratory Results - last 24 hr 10/25/24 10/25/24 10/26/24 05:55 22:40 06:19 WBC 4.58 RBC 2.27 L Hgb 8.0 L Hct 24.2 L MCV 107 H MCH 35 H MCHC 33 RDW Coeff of Clay 14.9 Plt Count 174 Neut % (Auto) 63.2 Lymph % (Auto) 31.4 [place] % (Auto) 4.4 Eos % (Auto) 0.4 Baso % (Auto) 0.2 Neut # (Auto) 2.89 Lymph # (Auto) 1.44 [place] # (Auto) 0.20 Eos # (Auto) 0.02 Baso # (Auto) 0.01 Abs Immat Gran (auto) 0.02 Imm/Tot Granulo (auto) 0.4 D-Dimer Quant (PE/DVT) 0.63 H VBG pH 7.402 VBG pCO2 44 VBG pO2 59.5 H VBG HCO3 27 Sodium 135 Potassium 3.1 L Chloride 102 Carbon Dioxide 29 Anion Gap 4 L BUN 24 Creatinine 0.5 Estimated Creat Clear 111.07 Estimated GFR 111 Glucose 109 Calcium 6.9 L Ionized Calcium Emi 0.90 L Total Bilirubin 0.4 Direct Bilirubin 0.3 AST 34 ALT 22 Alkaline Phosphatase 63 Total Protein 4.5 L Albumin 2.3 L
[2024-10-26 18:40] LABS: Ionized Calcium* 1.05 mmol/L (1.11-1.30)
--- NOTE | 2024-10-26 19:31 | PC.NURSE ---
End of shift [id number] - Pt oriented and alert for most of shift. Appeared to be fatigued as shift progressed and alertness noted to decrease. Up with EZ stand to chair. Tolerating RA and reported an increased appetite, observed to eat part of midday meal. Reported pain in various areas of the body, unable to elaborate when asked by RN. Given medication per [facility] guidelines to improve pt comfort. Pt reported itching in groin and stated that the discomfort pertained to her Gutierrez catheter. RN attempted to check placement and reposition catheter with pt reporting no change. Noted to be patent and draining. Pt later insisted that the sensation was itching, not pain, and became visibly agitated and restless. Given medication per MAR for CIWA related behavior and obtained order from MD for discomfort. Pt observed to sleep later during shift. Family at bedside. Appears to be resting at end of shift with call light within reach.
[2024-10-26] MEDS: LACTULOSE 20 GM/30 ML PO (20:31)
[2024-10-26] MEDS: MELATONIN 3 MG TABLET PO (20:31)
[2024-10-26] MEDS: ENOXAPARIN 40 MG/0.4 ML INJ SUBCUT (20:31)
[2024-10-26 22:24] LABS: Fecal Occult Blood* Positive (Negative)
[2024-10-27] VITALS (11 sets, daily range): BP systolic 86–103; BP diastolic 64–73; PULSE 91–111; RESP 18–20; TEMP 36.2–36.9; O2SAT 95–99
[2024-10-27] MEDS: 5 % DEXTROSE IN LAC RINGER'S 1,000 ML 125 ML IV (06:08)
[2024-10-27 07:11] LABS: Basophils Absolute Auto 0.01 K/uL (0.00-0.30); Basophils Percent Auto 0.2 % (0.0-3.0); Eosinophils Absolute Auto 0.01 K/uL (0.00-0.50); Eosinophils Percent Auto 0.2 % (0.0-7.0); Hematocrit 25.9 % (33.0-51.0); Hemoglobin* 8.3 gm/dL (12.0-16.0); Immature Granulocytes Abs Auto 0.07 K/uL (0.00-0.30); Immature Granulocytes Pct Auto 1.4 %; Lymphocytes Absolute Auto 1.51 K/uL (0.90-2.90); Lymphocytes Percent Auto 29.5 % (20-44); Mean Corpuscular HGB Conc 32 gm/dL (32-36); Mean Corpuscular Hemoglobin 35 pg (26-34); Mean Corpuscular Volume 108 fL (80-100); Monocytes Percent Auto 6.3 % (0.0-11.0); Neutrophils Absolute Auto 3.19 K/uL (1.7-7.0); Neutrophils Percent Auto 62.4 % (42.0-72.0); Platelet Count* 177 K/uL (140-440); RDW Coefficient of Variation % 15.1 % (11.5-15.5); Red Blood Count 2.39 m/uL (4.00-5.20); White Blood Count* 5.11 K/uL (4.50-11.00)
--- NOTE | 2024-10-27 07:12 | PC.NURSE ---
Pt is alert to self, place and month. Pt denies pain, chest pain, SOB, and N/V. Pt reports itchiness in groin, managed with PRN medication. Pt is up?A2 with easy stand to commode. Pt had x1 large loose/soft BM and x1 small soft?BM. Pt?s catheter is patent and draining. ?Pt CIWA scores range from 3-7. ?
[2024-10-27 07:27] LABS: Slide Review Reflex No
[2024-10-27 07:37] LABS: Chloride* 102 mmol/L (96-114); Sodium* 135 mmol/L (135-149)
[2024-10-27 07:40] LABS: Anion Gap 3 mEq/L (7-15); Blood Urea Nitrogen* 17 mg/dL (7-30); Calcium* 7.7 mg/dL (8.4-10.6); Carbon Dioxide* 30 mmol/L (20-32); Creatinine* 0.5 mg/dL (0.5-1.5); Est. Creatinine Clearance* 111.07; Estimated Glomerular Filt Rate 111 ml/min; Glucose* 107 mg/dL (60-115)
--- NOTE | 2024-10-27 07:51 | PM.IMPN1 ---
Assessment and Plan Assessment and plan (1) Wernicke encephalopathy: Problem comment: Admission on 10/24/2024 with up opthalmoplegia, poor balance, confusion and forgetfulness. Treatment with IV thiamine Continue PT OT End Touching Machine Operator met with patient and her daughter to discuss resources Will need SNF placement 10/26 - started on lactulose 10/27 - 4 stools already. FOBT + but hgb trending up. Will need to monitor for dehydration, mildly tachycardic now, continue IVF. Consider discontinuing if no significant improvement in mentation which has been slowly improving. She remains slowed but suspect this is chronic Status: Acute (2) Alcohol withdrawal: Problem comment: Currently having very mild alcohol withdrawal signs and symptoms. Low-dose phenobarbital is started. Consider additional phenobarbital if needed. Denies history of seizures or DTs CIWA this morning 9 - remain elevated, utilizing Ativan as needed 10/27 - CIWA 0 by noon. Continue to monitor for now, discontinuing 24-48 hours Status: Acute (3) Alcohol use disorder, severe, dependence: Problem comment: greeter guest services for chemical dependency resources Status: Chronic (4) Chronic back pain: Problem comment: History of chronic back pain with chronic opioid use until June 2024. Recommend avoiding opioids or consider buprenorphine if requiring opioid for pain control. Admits to increased alcohol use for pain management CT shows L4-S1 posterior fusion changes, otherwise unremarkable Recurrent falls as of late Lidocaine patch, ice/heat, toradol, frequent repositioning - appear to be helpful PT/OT Recommend outpatient follow-up with PCP and publishing specialist Status: Acute (5) H/O lumbosacral spine surgery: Problem comment: Remote history approximately 2005 Chronic pain. Admits to drinking more alcohol for pain management. No longer using opioids Recommend outpatient follow-up with publishing specialist Status: Acute (6) Chronic dental pain: Problem comment: Reports chronic pain with chewing solids subsequently swallowing large sized pieces of food or avoiding solids altogether and instead drinking more alcohol. H/o dental work/reconstruction approximately 9-10 years ago. No recent dental visit Recommend outpatient follow-up with dentist Status: Acute (7) Pharyngitis: Problem comment: She reports chronic sore throat with pain with swallowing for months. As above, has pain with chewing foods so does not completely chew what she is eating, swallowing large size food particles. H/o choking/coughing on clears. Unclear if this is primarily a pharyngitis or esophagitis or both. Quick strep negative WIRELESS COMMUNICATIONS ENGINEER consult for swallow study given choking/coughing episodes with liquid intake Video swallow completed 10/26. No penetration or aspiration noted on study. Recommending regular thin liquids, softer food items. Safe swallow strategies. Will follow for dysphagia management while in the hospital Recommend outpatient follow-up with PCP -> referral for further imaging/testing (EGD) in the outpatient setting if necessary Status: Acute (8) Esophagitis: Problem comment: Patient reports a few months of symptoms of both esophagitis and pharyngitis. She reports a lot of pain with swallowing as well as chewing Continue PPI As above, outpatient follow-up Status: Acute (9) Malnutrition: Problem comment: In addition to obvious thiamin deficiency patient likely also has multiple other nutritional deficiencies related to her poor intake of food and fluids other than alcohol. Family reports she has been losing weight. Patient admits she prefers to drink alcohol rather than eat solid foods on a daily basis Nutrition consulted Status: Acute (10) Hypokalemia: Problem comment: Potassium 2.7 on admission, dropped to 2.3 despite replacement. Patient is not tolerating/not awake enough to take in appropriate oral replacement IV bumps ordered. 3.5 on recheck Continue oral pills b.i.d. x4 doses - increase to 40mEq bid 3.1 on 10/26 10/27 - potassium 3.0, documented that patient refused oral last night. Three bumps IV ordered for this morning. Continue oral supplement as well Status: Acute (11) Hypocalcemia: Problem comment: Calcium 6.6. Ionized Ca 0.9. 10/26 - 2 g ordered, recheck 2 hours after completion. Continue replacement as needed 10/27 - calcium improved to 7.7, ionized calcium 1.05, 1 g calcium gluconate ordered Status: Acute (12) Hyponatremia: Problem comment: Sodium improved to 131 -> 135, continue to monitor Status: Resolved (13) Anemia: Problem comment: Hemoglobin 8.7, 11.9 on admission. Suspect dilutional secondary to fluid resuscitation. RBC 2.5, HCT 25.6, MCV 102 Iron panel - iron, TIBC, % saturation, B12 ordered Fe 91, TIBC 148, % sat 61, B12 286, ferritin 282 Could be anemia of chronic disease in alcohol dependency, inflammatory anemia, dilutional in acute setting. No active bleed reported 10/27 - hemoglobin trending up, 8.3. FOBT positive, stool without amelia blood. Continue to monitor Status: Acute (14) Discharge planning issues: Problem comment: According to the family her living arrangements are not fit for him and had amputation and she is unable to care for herself. Will need to assess how she recovers from this current episode of illness to make further decisions about placement Daughter is working on possibly having her stay with her in [place]. She does not want to returning to her current home setting May require SNF greeter guest services assisting Status: Acute (15) Hypotension: Problem comment: Intermittent, responsive to fluid resuscitation, continue to monitor Decreased urine output/retention reported, Benitez catheter placed Echocardiogram 10/26/24: 1. LVEF estimate 60-65%. Normal LV size and wall thickness. 2. Normal RV size and global function. 3. Mild MR and mild TR. 4. Normal RAP estimate. 5. No pericardial effusion. Systolics holding in 90s. Consider d/c benitez Status: Acute Plan Awaiting SNF placement Total Time Spent Total Time Spent: Today I spent 45 minutes seeing the patient, reviewing Expanse and EPIC notes/diagnostics, discussing the care plan with our care time that includes social work, PT/OT, pharmacy, RT, intermediate and documenting my impressions and plan in the medical record. Subjective Date Seen: 10/27/24 Interval history: Patient is seen sitting up in bed this morning. Reports feeling somewhat better. While more alert continues to be slowed. Was started on lactulose for this. Denies headache or dizziness this morning. Denies chest pain or shortness of breath. Tolerating orals without nausea vomiting. Chewing slowly and swallowing with less difficulty. CIWA 0. Awaiting SNF placement. Exam Narrative: Exam Narrative: PHYSICAL EXAM General: More calm this morning, remains slowed but more alert Cardiovascular: RRR, S1S2. No pitting edema Pulmonary: CTA bilaterally without rhonchi, rales, expiratory wheezes. No dyspnea on room air Neurological: Alert, answering questions appropriately though slowed - improving, cranial nerves intact, no focal findings Extremities: No gross joint deformity or swelling. AROMI. Neurovascularly intact Skin: Warm, dry. Const: Vital Signs, click to edit/add: Vital Signs - 24 hr 10/26/24 08:00 10/26/24 12:00 10/26/24 15:00 Temperature 97.7 F Pulse Rate 103 H Pulse Rate [Left P ulse Oximeter] 98 104 H Respiratory Rate 16 20 Blood Pressure [Le ft Arm] 91/68 94/67 Pulse Oximetry 99 99 Oxygen Delivery Me thod Room Air Room Air Oxygen Flow Rate 1 10/26/24 15:00 10/26/24 15:00 10/26/24 16:00 Temperature Pulse Rate Pulse Rate [Left P ulse Oximeter] 97 97 Respiratory Rate 20 18 18 Blood Pressure [Le ft Arm] Pulse Oximetry 99 99 99 Oxygen Delivery Me thod Room Air Room Air Room Air Oxygen Flow Rate 10/26/24 20:00 10/26/24 22:55 10/27/24 00:00 Temperature 98.5 F 98.2 F Pulse Rate 90 Pulse Rate [Left P ulse Oximeter] 98 98 Respiratory Rate 18 18 Blood Pressure [Le ft Arm] 110/83 96/71 Pulse Oximetry 95 95 [facility] Room Air Oxygen Flow Rate 10/27/24 00:00 10/27/24 04:00 Temperature 97.7 F Pulse Rate Pulse Rate [Left P ulse Oximeter] 91 Respiratory Rate 18 18 Blood Pressure [Le ft Arm] 100/67 Pulse Oximetry 95 98 Oxygen Delivery Me thod Room Air Room Air Oxygen Flow Rate Labs Labs: Laboratory Results - last 24 hr 10/26/24 10/26/24 10/27/24 18:36 21:00 06:49 WBC 5.11 RBC 2.39 L Hgb 8.3 L Hct 25.9 L MCV 108 H MCH 35 H MCHC 32 RDW Coeff of Clay 15.1 Plt Count 177 Neut % (Auto) 62.4 Lymph % (Auto) 29.5 [place] % (Auto) 6.3 Eos % (Auto) 0.2 Baso % (Auto) 0.2 Neut # (Auto) 3.19 Lymph # (Auto) 1.51 [place] # (Auto) 0.30 Eos # (Auto) 0.01 Baso # (Auto) 0.01 Abs Immat Gran (auto) 0.07 Imm/Tot Granulo (auto) 1.4 Sodium 135 Potassium 3.0 L Chloride 102 Carbon Dioxide 30 Anion Gap 3 L BUN 17 Creatinine 0.5 Estimated Creat Clear 111.07 Estimated GFR 111 Glucose 107 Calcium 7.7 L Ionized Calcium Emi 1.05 L Stool Occult Blood Positive A
[2024-10-27] MEDS: OMEPRAZOLE 20 MG CAPSULE DR PO ×2 (08:10→21:12)
[2024-10-27] MEDS: hydrOXYzine pamoate 25 MG CAPSULE PO (08:10)
[2024-10-27] MEDS: GABAPENTIN 300 MG CAPSULE PO ×3 (08:11→21:12)
[2024-10-27] MEDS: FOLIC ACID 1 MG TABLET PO (08:11)
[2024-10-27] MEDS: MULTIVITAMIN/MINERALS 1 TABLET 1 TAB PO (08:11)
[2024-10-27] MEDS: LACTULOSE 20 GM/30 ML PO ×2 (08:11→21:12)
[2024-10-27] MEDS: POTASSIUM CHLORIDE 10 MEQ CAPSULE ER 40 MEQ PO ×2 (08:11→18:42)
[2024-10-27] MEDS: POTASSIUM CHLORIDE 10 MEQ/100 ML PIGGYBACK 100 MEQ IVPB ×3 (08:56→14:40)
[2024-10-27] MEDS: 0.9 % SODIUM CHLORIDE 250 ml IV ×2 (08:57→12:22)
[2024-10-27] MEDS: CALCIUM GLUC 1,000MG/50 ML 1,000 MG/50 ML BAG 100 MG IVPB (10:48)
[2024-10-27] MEDS: SODIUM CHLORIDE 0.9 % (FLUSH) 10 ML SYRINGE 5 ML IVF ×2 (10:49→21:13)
[2024-10-27] MEDS: THIAMINE 500 MG in 0.9 % SODIUM CHLORIDE 100 ml 100 ML 105 MG IVPB ×3 (10:49→23:20)
[2024-10-27] MEDS: LIDOCAINE 5% PATCH 1 PATCH TRANSDERMA (10:55)
[2024-10-27] MEDS: ACETAMINOPHEN 325 MG TABLET 650 MG PO (14:44)
[2024-10-27] MEDS: NICOTINE 14 mg PATCH 1 PATCH TRANSDERMA (14:45)
[2024-10-27] MEDS: MELATONIN 3 MG TABLET PO (21:12)
[2024-10-27] MEDS: ENOXAPARIN 40 MG/0.4 ML INJ SUBCUT (21:13)
[2024-10-28] VITALS (21 sets, daily range): BP systolic 94–115; BP diastolic 56–99; PULSE 97–110; RESP 16–20; TEMP 36.3–37; O2SAT 93–100
[2024-10-28] MEDS: 5 % DEXTROSE IN LAC RINGER'S 1,000 ML 125 ML IV (03:51)
[2024-10-28 06:33] LABS: Basophils Percent Auto 0.5 % (0.0-3.0); Eosinophils Percent Auto 0.2 % (0.0-7.0); Immature Granulocytes Pct Auto 1.2 %; Lymphocytes Percent Auto 36.1 % (20-44); Mean Corpuscular HGB Conc 32 gm/dL (32-36); Mean Corpuscular Hemoglobin 35 pg (26-34); Mean Corpuscular Volume 110 fL (80-100); Monocytes Percent Auto 8.6 % (0.0-11.0); Neutrophils Percent Auto 53.4 % (42.0-72.0); Platelet Count* 162 K/uL (140-440); RDW Coefficient of Variation % 15.6 % (11.5-15.5); Red Blood Count 2.19 m/uL (4.00-5.20); White Blood Count* 4.07 K/uL (4.50-11.00)
[2024-10-28 06:37] LABS: Hemoglobin* 7.7 gm/dL (12.0-16.0); Slide Review Reflex No
[2024-10-28 06:55] LABS: Chloride* 105 mmol/L (96-114); Sodium* 136 mmol/L (135-149)
[2024-10-28 06:56] LABS: Potassium* 4.1 mmol/L (3.6-5.1)
[2024-10-28 06:58] LABS: Anion Gap 0 mEq/L (7-15); Blood Urea Nitrogen* 15 mg/dL (7-30); Carbon Dioxide* 31 mmol/L (20-32); Creatinine* 0.5 mg/dL (0.5-1.5); Est. Creatinine Clearance* 111.07; Estimated Glomerular Filt Rate 111 ml/min
[2024-10-28 06:59] LABS: Calcium* 7.3 mg/dL (8.4-10.6); Glucose* 98 mg/dL (60-115)
--- NOTE | 2024-10-28 07:18 | PM.IMPN1 ---
Assessment and Plan Assessment and plan (1) Wernicke encephalopathy: Problem comment: Admission on 10/24/2024 with up opthalmoplegia, poor balance, confusion and forgetfulness. Treatment with IV thiamine completed. Continue with daily oral replacement BC NGTD, UC growing E coli - keflex started Continue PT OT [employer] met with patient and her daughter to discuss resources Will need SNF placement 10/26 - started on lactulose 10/27 - 4 stools already. FOBT + but hgb trending up. Will need to monitor for dehydration, mildly tachycardic now, continue IVF. Consider discontinuing if no significant improvement in mentation which has been slowly improving. She remains slowed but suspect this is chronic 10/28 - mentation, alertness continues to slowly improve. Interactions improving. Still slowed physically/ADLs. Increased weakness reported past 24 hours, now requiring easy stand however. Had increased BM with lacutlose over this timeframe. Mag and phos ordered, recheck LFTs. Overall, appears more like a Wernicke Korsakoff syndrome Status: Acute (2) Alcohol withdrawal: Problem comment: Currently having very mild alcohol withdrawal signs and symptoms. Low-dose phenobarbital is started. Consider additional phenobarbital if needed. Denies history of seizures or DTs CIWA this morning 9 - remain elevated, utilizing Ativan as needed 10/27 - CIWA 0 by noon. Continue to monitor for now, discontinuing 24-48 hours 10/28 - believe we are past this now, monitor Status: Acute (3) Alcohol use disorder, severe, dependence: Problem comment: protective services social worker for chemical dependency resources Status: Chronic (4) Anemia: Problem comment: Hemoglobin 8.7, 11.9 on admission. Suspect dilutional secondary to fluid resuscitation. RBC 2.5, HCT 25.6, MCV 102 Iron panel - iron, TIBC, % saturation, B12 ordered Fe 91, TIBC 148, % sat 61, B12 286, ferritin 282 Could be anemia of chronic disease in alcohol dependency - poor cell development, inflammatory anemia, dilutional in acute setting. No active/amelia bleed reported 10/27 - hemoglobin trending up, 8.3. FOBT positive, stool without amelia blood. Continue to monitor 10/28 - hgb has dropped to 7.7, no hematemesis or melanotic stools, c/o brief double vision this morning without other neuro findings. Discussed risks/benefits blood transfusion - agrees. Query slow variceal bleed. EGD ordered for Tuesday - agrees. NPO after midnight Status: Acute (5) Chronic back pain: Problem comment: History of chronic back pain with chronic opioid use until June 2024. Recommend avoiding opioids or consider buprenorphine if requiring opioid for pain control. Admits to increased alcohol use for pain management CT shows L4-S1 posterior fusion changes, otherwise unremarkable Recurrent falls as of late Lidocaine patch, ice/heat, toradol, frequent repositioning - appear to be helpful PT/OT Recommend outpatient follow-up with PCP and paid search specialist Status: Acute (6) H/O lumbosacral spine surgery: Problem comment: Remote history approximately 2005 Chronic pain. Admits to drinking more alcohol for pain management. No longer using opioids Recommend outpatient follow-up with paid search specialist Status: Acute (7) Chronic dental pain: Problem comment: Reports chronic pain with chewing solids subsequently swallowing large sized pieces of food or avoiding solids altogether and instead drinking more alcohol. H/o dental work/reconstruction approximately 9-10 years ago. No recent dental visit Recommend outpatient follow-up with dentist Status: Acute (8) Pharyngitis: Problem comment: She reports chronic sore throat with pain with swallowing for months. As above, has pain with chewing foods so does not completely chew what she is eating, swallowing large size food particles. H/o choking/coughing on clears. Unclear if this is primarily a pharyngitis or esophagitis or both. Quick strep negative CHILD PROTECTION SPECIALIST consult for swallow study given choking/coughing episodes with liquid intake Video swallow completed 10/26. No penetration or aspiration noted on study. Recommending regular thin liquids, softer food items. Safe swallow strategies. Will follow for dysphagia management while in the hospital Recommend outpatient follow-up with PCP -> referral for further workup in the outpatient setting if necessary Status: Acute (9) Esophagitis: Problem comment: Patient reports a few months of symptoms of both esophagitis and pharyngitis. She reports a lot of pain with swallowing as well as chewing Continue PPI As above, outpatient follow-up 10/28 - will have EGD tomorrow for concern of slow variceal bleed Status: Acute (10) Malnutrition: Problem comment: In addition to obvious thiamin deficiency patient likely also has multiple other nutritional deficiencies related to her poor intake of food and fluids other than alcohol. Family reports she has been losing weight. Patient admits she prefers to drink alcohol rather than eat solid foods on a daily basis Nutrition consulted Status: Acute (11) Hypokalemia: Problem comment: Potassium 2.7 on admission, dropped to 2.3 despite replacement. Patient is not tolerating/not awake enough to take in appropriate oral replacement IV bumps ordered. 3.5 on recheck Continue oral pills b.i.d. x4 doses - increase to 40mEq bid 3.1 on 10/26 10/27 - potassium 3.0, documented that patient refused oral last night. Three bumps IV ordered for this morning. Continue oral supplement as well 10/28 - continue oral supplement Status: Acute (12) Hypocalcemia: Problem comment: Calcium 6.6. Ionized Ca 0.9. 10/26 - 2 g ordered, recheck 2 hours after completion. Continue replacement as needed 10/27 - calcium improved to 7.7, ionized calcium 1.05, 1 g calcium gluconate ordered Doubt we will be able to correct this, or have lasting affect, in setting of chronic alcohol use, electrolyte imbalances/vitamin deficiencies, hypomagnesemia. TSH/PTH ordered Status: Acute (13) Hyponatremia: Problem comment: Sodium improved to 131 -> 135, continue to monitor Stable Status: Resolved (14) Hypotension: Problem comment: Intermittent, responsive to fluid resuscitation, continue to monitor Decreased urine output/retention reported, Gutierrez catheter placed Echocardiogram 10/26/24: 1. LVEF estimate 60-65%. Normal LV size and wall thickness. 2. Normal RV size and global function. 3. Mild MR and mild TR. 4. Normal RAP estimate. 5. No pericardial effusion. Systolics holding in 90s, low 100s. Decrease IVF with improved oral intake Status: Acute (15) UTI (urinary tract infection): Problem comment: UC growing >100,000 E coli. Ford sensitive Keflex 500 po tid x 5 days Status: Acute (16) Hypomagnesemia: Problem comment: 10/28 Magnesium 0.9 - received 2 g magnesium sulfate, improved to 1.5; 2nd dose of 2 g Mag sulfate ordered, recheck in a.m. Status: Acute (17) Hypophosphatemia: Problem comment: Phosphorus 1.8 - receiving KPhos. Recheck in am Status: Acute (18) Discharge planning issues: Problem comment: According to the family her living arrangements are not fit for him and had amputation and she is unable to care for herself. Will need to assess how she recovers from this current episode of illness to make further decisions about placement Daughter is working on possibly having her stay with her in [place]. She does not want to returning to her current home setting May require SNF protective services social worker assisting Status: Acute Plan Will need placement Total Time Spent Total Time Spent: Today I spent 75 minutes seeing the patient, reviewing Expanse and EPIC notes/diagnostics, discussing the care plan with our care time that includes social work, PT/OT, pharmacy, RT, shelter and documenting my impressions and plan in the medical record. Subjective Date Seen: 10/28/24 Interval history: Patient is seen sitting up in a chair this morning, eating breakfast. Is much more alert, quicker to speak and answer questions. Mentation improved. Remains physically slowed. Denies headache or dizziness. Reports brief episode of visual change this morning. Awoke with ?fuzzy? vision and when attempting to focus then noticed double vision which has since improved. Denies chest pain or shortness of breath. Remains afebrile. Tolerating orals without nausea vomiting. Exam Narrative: Exam Narrative: PHYSICAL EXAM General: More alert, slowed, NAD Cardiovascular: RRR, S1S2. No pitting edema Pulmonary: CTA bilaterally without rhonchi, rales, expiratory wheezes. No dyspnea on room air Neurological: Alert, answering questions appropriately though slowed - improving daily, cranial nerves intact, no focal findings Extremities: No gross joint deformity or swelling. AROMI. Neurovascularly intact Skin: Warm, dry. Const: Vital Signs, click to edit/add: Vital Signs - 24 hr 10/27/24 07:51 10/27/24 08:00 10/27/24 11:00 Temperature 98.0 F Pulse Rate 111 H Pulse Rate [Left P ulse Oximeter] 108 H 110 H Respiratory Rate 20 18 Blood Pressure [Le ft Arm] 86/64 L 99/64 Pulse Oximetry 96 99 Oxygen Delivery Me thod Room Air Room Air 10/27/24 12:40 10/27/24 15:00 10/27/24 15:00 Temperature 98.5 F Pulse Rate 101 H Pulse Rate [Left P ulse Oximeter] 110 H 103 H Respiratory Rate 18 18 Blood Pressure [Le ft Arm] 99/64 103/73 Pulse Oximetry 99 96 Oxygen Delivery Me thod Room Air Room Air 10/27/24 15:00 10/27/24 15:00 10/27/24 20:00 Temperature 97.2 F L Pulse Rate Pulse Rate [Left P ulse Oximeter] 103 H 105 H Respiratory Rate 18 18 18 Blood Pressure [Le ft Arm] 98/68 Pulse Oximetry 96 95 Oxygen Delivery Ak thod Room Air Room Air 10/27/24 22:19 10/27/24 22:19 10/27/24 23:50 Temperature 97.7 F Pulse Rate 101 H Pulse Rate [Left P ulse Oximeter] 101 H 106 H Respiratory Rate 18 Blood Pressure [Le ft Arm] 90/66 Pulse Oximetry 96 Oxygen Delivery Ak thod Room Air 10/27/24 23:50 10/28/24 04:00 10/28/24 06:53 Temperature 98.4 F 97.4 F L Pulse Rate Pulse Rate [Left P ulse Oximeter] 105 H 104 H Respiratory Rate 18 16 16 Blood Pressure [Le ft Arm] 97/67 111/82 Pulse Oximetry 96 98 100 Oxygen Delivery Ak thod Room Air Room Air Room Air Labs Labs: Laboratory Results - last 24 hr 10/27/24 10/28/24 06:49 06:16 WBC 5.11 4.07 L RBC 2.39 L 2.19 L Hgb 8.3 L 7.7 L* Hct 25.9 L 24.0 L MCV 108 H 110 H MCH 35 H 35 H MCHC 32 32 RDW Coeff of Clay 15.1 15.6 H Plt Count 177 162 Neut % (Auto) 62.4 53.4 Lymph % (Auto) 29.5 36.1 Crawford % (Auto) 6.3 8.6 Eos % (Auto) 0.2 0.2 Baso % (Auto) 0.2 0.5 Neut # (Auto) 3.19 2.20 Lymph # (Auto) 1.51 1.50 Crawford # (Auto) 0.30 0.40 Eos # (Auto) 0.01 0.00 Baso # (Auto) 0.01 0.00 Abs Immat Gran (auto) 0.07 0.00 Imm/Tot Granulo (auto) 1.4 1.2 Sodium 135 136 Potassium 3.0 L 4.1 Chloride 102 105 Carbon Dioxide 30 31 Anion Gap 3 L 0 L BUN 17 15 Creatinine 0.5 0.5 Estimated Creat Clear 111.07 111.07 Estimated GFR 111 111 Glucose 107 98 Calcium 7.7 L 7.3 L
--- NOTE | 2024-10-28 07:24 | PC.NURSE ---
Pt is alert and oriented x3. Afebrile Pt denies pain, chest pain, SOB, and N/V. Pt is up?A2 with ceiling lift. Pt?s catheter is patent and draining. ?Pt CIWA scores have been 0. Pt got new IV placed with ultrasound in left forearm, previous right upper arm IV catheter was taken out with catheter tip intact. Pt reports seeing ?double/blurry vision? around 0645 pt denies dizziness, N/V and headache, updated PA Debus and on coming RN.
[2024-10-28 07:41] LABS: Albumin* 2.2 g/dL (3.3-5.0)
[2024-10-28 07:44] LABS: Alanine Aminotransferase* 35 U/L (4-35); Alkaline Phosphatase* 98 U/L (40-150); Aspartate Amino Transferase* 33 U/L (12-35); Bilirubin Direct* 0.2 mg/dL (0.0-0.5); Bilirubin Total* 0.2 mg/dL (0.1-1.5); Phosphorus* 1.8 mg/dL (2.5-4.5); Total Protein* 4.4 g/dL (6.0-8.3)
[2024-10-28 07:47] LABS: Magnesium* 0.9 mg/dL (1.5-2.6)
[2024-10-28] MEDS: MAGNESIUM IV 2 GM/50 ML PIGGYBACK IVPB ×2 (08:25→16:35)
[2024-10-28] MEDS: cephALEXin 500 MG CAPSULE PO ×3 (09:08→19:51)
[2024-10-28] MEDS: OMEPRAZOLE 20 MG CAPSULE DR PO ×2 (09:08→19:51)
[2024-10-28] MEDS: MULTIVITAMIN/MINERALS 1 TABLET 1 TAB PO (09:08)
[2024-10-28] MEDS: THIAMINE 100 MG TABLET PO (09:08)
[2024-10-28] MEDS: GABAPENTIN 300 MG CAPSULE PO ×3 (09:08→19:51)
[2024-10-28] MEDS: FOLIC ACID 1 MG TABLET PO (09:08)
[2024-10-28] MEDS: POTASSIUM CHLORIDE 10 MEQ CAPSULE ER 40 MEQ PO (09:35)
[2024-10-28] MEDS: LIDOCAINE 5% PATCH 1 PATCH TRANSDERMA (11:00)
[2024-10-28] MEDS: ACETAMINOPHEN 325 MG TABLET 650 MG PO (11:00)
[2024-10-28 12:33] LABS: Magnesium* 1.5 mg/dL (1.5-2.6)
[2024-10-28] MEDS: LORazepam 1 MG TABLET PO ×2 (12:48→15:06)
[2024-10-28 15:50] LABS: PTH Intact* 51.8 pg/mL (14.2-75.2)
[2024-10-28] MEDS: NICOTINE 14 mg PATCH 1 PATCH TRANSDERMA (16:35)
[2024-10-28 16:49] LABS: Hemoglobin* 10.2 gm/dL (12.0-16.0)
[2024-10-28] MEDS: FUROSEMIDE 10 MG/ML inj 20 MG IVP (17:35)
[2024-10-28 18:10] LABS: Basophils Absolute Auto 0.01 K/uL (0.00-0.30); Basophils Percent Auto 0.2 % (0.0-3.0); Eosinophils Absolute Auto 0.01 K/uL (0.00-0.50); Eosinophils Percent Auto 0.2 % (0.0-7.0); Hematocrit 31.8 % (33.0-51.0); Hemoglobin* 10.2 gm/dL (12.0-16.0); Immature Granulocytes Abs Auto 0.02 K/uL (0.00-0.30); Immature Granulocytes Pct Auto 0.4 %; Lymphocytes Absolute Auto 1.91 K/uL (0.90-2.90); Lymphocytes Percent Auto 40.5 % (20-44); Mean Corpuscular HGB Conc 32 gm/dL (32-36); Mean Corpuscular Hemoglobin 34 pg (26-34); Mean Corpuscular Volume 106 fL (80-100); Monocytes Percent Auto 8.3 % (0.0-11.0); Neutrophils Absolute Auto 2.38 K/uL (1.7-7.0); Neutrophils Percent Auto 50.4 % (42.0-72.0); Platelet Count* 177 K/uL (140-440); RDW Coefficient of Variation % 16.7 % (11.5-15.5); White Blood Count* 4.72 K/uL (4.50-11.00)
[2024-10-28 18:16] LABS: Slide Review Reflex No
[2024-10-28 18:17] LABS: HCO3 VBG 28 mmol/L (21-28); PCO2 VBG 42 mmHG (40-50); PO2 VBG 45.3 mmHG (25-47); pH VBG 7.438 (7.32-7.43)
[2024-10-28 18:42] LABS: D Dimer Quantitative* 0.87 ug/ml (0.00-0.50)
[2024-10-28 18:51] LABS: NT Pro B Type NatriureticPept* 6220 pg/mL
[2024-10-28 18:54] LABS: Troponin I* < 0.01 ng/mL (0.01-0.04)
--- NOTE | 2024-10-28 19:04 | CRLHL7_ITS ---
For Patients: As a result of the Cures Act, medical imaging exams and procedure reports are released immediately into your electronic medical record. You may view this report before your referring provider. If you have questions, please contact your health care provider. INDICATION: Dyspnea, tremors TECHNIQUE: Chest radiograph 1 view COMPARISON: None FINDINGS: The sensitivity and specificity of the exam are moderately limited by the patient`s body habitus. Mediastinum: The mediastinum is normal in appearance. The heart silhouette is normal in size and morphology. Lung: Small lung volumes are present with mild patchy peribronchial opacity seen in the medial right lung base. No sign of pleural effusion seen. No pneumothorax is identified. Bone and Soft tissue: Unremarkable for age. IMPRESSION: 1. Small lung volumes are present with mild patchy peribronchial opacity seen in the medial right lung base. These findings can be seen with atelectasis and/or pneumonia. Dictated by Charles Sullivan MD @ 10/28/2024 7:40:29 PM Dictated by: Charles Sullivan MD @ 10/28/2024 19:40:34 (Electronically Signed)
--- NOTE | 2024-10-28 19:33 | PC.NURSE ---
End of Shift: Patient pleasant and cooperative this morning, throughout the day pt became more agitated, reported itchiness, anxiety, daughter reported that the patient told her there was a woman in a pink dress in her room, someone is standing behind me, there are cameras watching, shut the door. Gave PRN medication per CIWA protocol. Pt then reports feeling SOB, EKG complete, notified, gave one time dose lasix, and saline locked. Pt received 1 unit of blood this shift. Nicotine patch present on her right shoulder. Lidocaine patch on lower back. Ceiling lift to commode. Tolerating regular diet.
[2024-10-28] MEDS: ENOXAPARIN 40 MG/0.4 ML INJ SUBCUT (19:51)
[2024-10-28] MEDS: SODIUM CHLORIDE 0.9 % (FLUSH) 10 ML SYRINGE 5 ML IVF (19:52)
[2024-10-28] MEDS: 5 % DEXTROSE IN LAC RINGER'S 1,000 ML 75 ML IV (23:02)
[2024-10-29] VITALS (12 sets, daily range): BP systolic 90–120; BP diastolic 64–82; PULSE 90–118; RESP 16–18; TEMP 36.3–37; O2SAT 93–98
[2024-10-29 06:23] LABS: Basophils Percent Auto 0.4 % (0.0-3.0); Eosinophils Percent Auto 0.8 % (0.0-7.0); Hematocrit 51.3 % (33.0-51.0); Hemoglobin* 17.1 gm/dL (12.0-16.0); Immature Granulocytes Pct Auto 0.4 %; Lymphocytes Percent Auto 35.3 % (20-44); Mean Corpuscular HGB Conc 33 gm/dL (32-36); Mean Corpuscular Hemoglobin 34 pg (26-34); Mean Corpuscular Volume 102 fL (80-100); Neutrophils Percent Auto 53.1 % (42.0-72.0); Platelet Count* 91 K/uL (140-440); Red Blood Count 5.03 m/uL (4.00-5.20); White Blood Count* 2.41 K/uL (4.50-11.00)
[2024-10-29 06:24] LABS: Slide Review Reflex No
--- NOTE | 2024-10-29 06:30 | PC.NURSE ---
Pt is alert and oriented x3. Afebrile. Pt denies pain, chest pain, SOB, and N/V. Pt is up?A2 with easy stand. Pt?s catheter is patent and draining. Pt CIWA scores have been 0-3. Pt?s catheter is patent and draining. Pt was turned and repositioned throughout night.?Pt tolerating an NPO diet since 0000.
[2024-10-29 06:36] LABS: Chloride* 102 mmol/L (96-114); Potassium* 4.8 mmol/L (3.6-5.1); Sodium* 136 mmol/L (135-149)
[2024-10-29 06:37] LABS: Anion Gap 4 mEq/L (7-15); Blood Urea Nitrogen* 14 mg/dL (7-30); Calcium* 7.2 mg/dL (8.4-10.6); Carbon Dioxide* 30 mmol/L (20-32); Creatinine* 0.4 mg/dL (0.5-1.5); Est. Creatinine Clearance* 138.84; Estimated Glomerular Filt Rate 118 ml/min; Glucose* 84 mg/dL (60-115); Magnesium* 1.4 mg/dL (1.5-2.6); Phosphorus* 4.5 mg/dL (2.5-4.5)
[2024-10-29] MEDS: MAGNESIUM IV 2 GM/50 ML PIGGYBACK IVPB (07:56)
[2024-10-29] MEDS: POTASSIUM CHLORIDE 10 MEQ CAPSULE ER 20 MEQ PO ×2 (07:57→18:27)
[2024-10-29] MEDS: 0.9 % SODIUM CHLORIDE 250 ml IV (08:11)
--- NOTE | 2024-10-29 08:18 | P.IMPN_ITS ---
Assessment and Plan Assessment and plan (1) Wernicke encephalopathy: Problem comment: - on admission 10/24/24: ophthalmoplegia, poor balance, confusion and forgetfulness - treatment with IV thiamine completed, continuing oral replacement - continue therapies, SNF stay currently recommended - trial of Lactulose 10/26-10/27; couldn't tolerate it 2/2 diarrhea and worsening metabolic derangement Status: Acute (2) Alcohol use disorder, severe, dependence: Problem comment: - with sequela of chronic use including pancytopenia, hypokalemia, hypomagnesemia, hypocalcemia Status: Chronic (3) Anemia: Problem comment: - Hemoglobin 11.9 on admission, macrocytic - 10/27: hemoglobin trending up, 8.3. FOBT positive, stool without amelia blood - 10/28: Hgb dropped to 7.7, received 1U PRBCs - 10/29: EGD reassuring, Hgb up to 17 (will continue to follow) Status: Acute (4) Chronic back pain: Problem comment: - History of chronic back pain with chronic opioid use until June 2024, admits to increased alcohol use for pain management - CT revealed L4-S1 posterior fusion changes, otherwise unremarkable - Lidocaine patch, ice/heat, frequent repositioning - appear to be helpful - PT/OT following Status: Acute (5) Esophagitis: Problem comment: - reports a few months of symptoms of both esophagitis and pharyngitis. She reports a lot of pain with swallowing as well as chewing - Continue PPI, EGD reassuring 10/29 Status: Acute (6) Malnutrition: Problem comment: - in addition to obvious thiamine deficiency, hypocalcemia, hypomagnesemia, hypokalemia, hypophosphatemia - Family reports weight loss, patient admitted she prefers to drink alcohol rather than eat solid foods on a daily basis - Nutrition has been consulted Status: Acute (7) UTI (urinary tract infection): Problem comment: - pansensitive E Coli, treat with 5 days of Cephalexin Status: Acute (8) Discharge planning issues: Problem comment: - According to the family her living arrangements are not safe and she is unable to care for herself - Daughter is working on possibly having her stay with her in [place]. She does not want to returning to her current home setting - requires SNF per therapies, appreciate assistance from public health social worker Status: Acute Plan - per above Subjective Date Seen: 10/29/24 Interval history: Maki was admitted to the hospital on 10/24 for weakness and inability to ambulate in the setting of chronic alcohol use disorder, concern for Wernicke encephalopathy. Since admission: - treated for ETOH withdrawal with Phenobarbital, Lorazepam, and Gabapentin. CIWA scores currently 0 - Keflex for E Coli UTI - transfused 1 U PRBCs on 10/28 for Hgb of 7.7, EGD 10/29 without evidence of acute bleed - receiving IV and oral Magnesium and Potassium supplementation, on thiamine and folic acid This morning, patient's hemoglobin is 17, MCV 102. WBC is 2.41 and platelets are 91. Maki has no concerns for hospitalist this morning; she verbalizes understanding of the importance of ETOH cessation. Therapies following, SNF recommended at this time. Exam Narrative: Exam Narrative: GEN: Alert and sitting comfortably in bed HEENT: EOMIs bilaterally, no scleral icterus CV: RRR, No concerning murmurs R: LCTA bilaterally without concerning wheezing Ab: tolerates exam Skin: No concerning skin lesions or rashes on exposed skin Neuro: No focal deficits, tremor not appreciated during my visit Psych: Mild psychomotor slowing, no agitation or anxiety Const: Vital Signs, click to edit/add: Vital Signs - 24 hr 10/28/24 11:00 10/28/24 12:00 10/28/24 13:06 Temperature 97.6 F 97.6 F 98.0 F Pulse Rate 104 H Pulse Rate [Left P ulse Oximeter] 107 H 107 H Respiratory Rate 18 18 18 Blood Pressure 95/69 Blood Pressure [Le ft Arm] 105/76 105/76 Pulse Oximetry 98 98 98 [facility] Room Air 10/28/24 13:26 10/28/24 13:56 10/28/24 14:26 Temperature 97.5 F L 98.0 F 98.1 F Pulse Rate 104 H 101 H 102 H Pulse Rate [Left P ulse Oximeter] Respiratory Rate 18 18 18 Blood Pressure 94/79 103/90 H 109/99 H Blood Pressure [Le ft Arm] Pulse Oximetry 100 100 100 [facility] Room [facility] Room Air 10/28/24 14:36 10/28/24 14:56 10/28/24 15:00 Temperature 98.1 F 98.0 F 97.9 F Pulse Rate 107 H Pulse Rate [Left P ulse Oximeter] 102 H 106 H Respiratory Rate 18 18 18 Blood Pressure 96/82 Blood Pressure [Le ft Arm] 109/97 H 115/71 Pulse Oximetry 100 100 99 Oxygen Delivery Me thod Room Air Room Air Room Air 10/28/24 15:00 10/28/24 15:00 10/28/24 15:00 Temperature 97.7 F Pulse Rate Pulse Rate [Left P ulse Oximeter] 106 H 106 H Respiratory Rate 18 18 18 Blood Pressure Blood Pressure [Le ft Arm] 115/71 Pulse Oximetry 98 99 Oxygen Delivery Me thod Room Air Room Air 10/28/24 15:00 10/28/24 15:26 10/28/24 16:00 Temperature 97.7 F 98.6 F Pulse Rate 106 H 106 H Pulse Rate [Left P ulse Oximeter] 104 H Respiratory Rate 18 20 Blood Pressure 115/71 Blood Pressure [Le ft Arm] 100/77 Pulse Oximetry 99 98 Oxygen Delivery Me od Room Air Room Air 10/28/24 16:23 10/28/24 18:03 10/28/24 19:20 Temperature 98.6 F 98.0 F Pulse Rate 104 H 110 H Pulse Rate [Left P ulse Oximeter] 103 H Respiratory Rate 20 20 18 Blood Pressure 100/77 104/91 H Blood Pressure [Le ft Arm] 107/56 L Pulse Oximetry 98 93 95 Oxygen Delivery Me od Room Air Room Air Room Air 10/28/24 21:00 10/28/24 21:44 10/28/24 22:45 Temperature 97.6 F 97.6 F Pulse Rate 99 Pulse Rate [Left P ulse Oximeter] 97 98 Respiratory Rate 18 16 Blood Pressure Blood Pressure [Le ft Arm] 107/81 100/90 H Pulse Oximetry 98 97 Oxygen Delivery Me od Room Air Room Air 10/28/24 22:45 10/28/24 22:45 10/29/24 02:46 Temperature 97.8 F Pulse Rate Pulse Rate [Left P ulse Oximeter] 97 Respiratory Rate 16 16 18 Blood Pressure Blood Pressure [Le ft Arm] 108/80 Pulse Oximetry 97 97 Oxygen Delivery Me thod Room Air Room Air Labs Labs: Laboratory Results - last 24 hr 10/28/24 10/28/24 10/28/24 06:16 12:01 14:51 WBC RBC Hgb Hct MCV MCH MCHC RDW Coeff of Clay Plt Count Neut % (Auto) Lymph % (Auto) Mineral % (Auto) Eos % (Auto) Baso % (Auto) Neut # (Auto) Lymph # (Auto) Mineral # (Auto) Eos # (Auto) Baso # (Auto) Abs Immat Gran (auto) Imm/Tot Granulo (auto) D-Dimer Quant (PE/DVT) VBG pH VBG pCO2 VBG pO2 VBG HCO3 Sodium Potassium Chloride Carbon Dioxide Anion Gap BUN Creatinine Estimated Creat Clear Estimated GFR Glucose Calcium Phosphorus Magnesium 1.5 Troponin I NT-Pro-B Natriuret Pep TSH 4.890 H PTH Intact 51.8 Lab Acknowledgement Test Added Blood Type O Positive Antibody Screen NEGATIVE Crossmatch ([facility]) See Detail 10/28/24 10/28/24 10/28/24 14:52 16:44 16:45 WBC 4.72 RBC 3.00 L Hgb 10.2 L 10.2 L Hct 31.8 L MCV 106 H MCH 34 MCHC 32 RDW Coeff of Clay 16.7 H Plt Count 177 Neut % (Auto) 50.4 Lymph % (Auto) 40.5 Mineral % (Auto) 8.3 Eos % (Auto) 0.2 Baso % (Auto) 0.2 Neut # (Auto) 2.38 Lymph # (Auto) 1.91 Mineral # (Auto) 0.40 Eos # (Auto) 0.01 Baso # (Auto) 0.01 Abs Immat Gran (auto) 0.02 Imm/Tot Granulo (auto) 0.4 D-Dimer Quant (PE/DVT) VBG pH VBG pCO2 VBG pO2 VBG HCO3 Sodium Potassium Chloride Carbon Dioxide Anion Gap BUN Creatinine Estimated Creat Clear Estimated GFR Glucose Calcium Phosphorus Magnesium Troponin I NT-Pro-B Natriuret Pep TSH PTH Intact Lab Acknowledgement Test Added Blood Type Antibody Screen Crossmatch ([facility]) 10/28/24 10/29/24 18:07 06:00 WBC 2.41 L RBC 5.03 Hgb 17.1 H Hct 51.3 H MCV 102 H MCH 34 MCHC 33 RDW Coeff of Clay 17.0 H Plt Count 91 L Neut % (Auto) 53.1 Lymph % (Auto) 35.3 Mineral % (Auto) 10.0 Eos % (Auto) 0.8 Baso % (Auto) 0.4 Neut # (Auto) 1.30 L Lymph # (Auto) 0.90 Mineral # (Auto) 0.20 Eos # (Auto) 0.00 Baso # (Auto) 0.00 Abs Immat Gran (auto) 0.00 Imm/Tot Granulo (auto) 0.4 D-Dimer Quant (PE/DVT) 0.87 H VBG pH 7.438 H VBG pCO2 42 VBG pO2 45.3 VBG HCO3 28 Sodium 136 Potassium 4.8 Chloride 102 Carbon Dioxide 30 Anion Gap 4 L BUN 14 Creatinine 0.4 L Estimated Creat Clear 138.84 Estimated GFR 118 Glucose 84 Calcium 7.2 L Phosphorus 4.5 Magnesium 1.4 L Troponin I < 0.01 NT-Pro-B Natriuret Pep 6220 TSH PTH Intact Lab Acknowledgement Blood Type Antibody Screen Crossmatch ([facility])
[2024-10-29] MEDS: SODIUM CHLORIDE 0.9 % (FLUSH) 10 ML SYRINGE 5 ML IVF ×2 (08:30→20:59)
[2024-10-29] MEDS: LIDOCAINE 5% PATCH 1 PATCH TRANSDERMA (10:12)
--- NOTE | 2024-10-29 11:38 | P.ANES_ITS ---
Anesthesia Charges Start Date/Time Anesthesia Start Date: 10/29/24 Anesthesia Start Time: 11:23 Stop Date/Time Anesthesia Stop Date: 10/29/24 Anesthesia Stop Time: 11:38 Coding CPT Codes CPT Codes: ANES UPR GI NDSC PX NOS - 64758 ([id number]) P3 - PATIENT W/SEVERE SYS DISEASE, QK - PATHOLOGY ASSISTANT 2-4 CNCRNT ANES PROC, QX - RCP SVC W/ MD MED DIRECTION
--- NOTE | 2024-10-29 11:38 | W.ANESCHARGE ---
Anesthesia Charges Start Date/Time Anesthesia Start Date: 10/29/24 Anesthesia Start Time: 11:23 Stop Date/Time Anesthesia Stop Date: 10/29/24 Anesthesia Stop Time: 11:38 Coding CPT Codes CPT Codes: ANES UPR GI NDSC PX NOS - 48934 ([id number]) P3 - PATIENT W/SEVERE SYS DISEASE, QK - COOK TACO 2-4 CNCRNT ANES PROC, QX - ANIMAL RIDE ATTENDANT SVC W/ MD MED DIRECTION
--- NOTE | 2024-10-29 11:47 | P.ANES_ITS ---
Anesthesia Charges Start Date/Time Anesthesia Start Date: 10/29/24 Anesthesia Start Time: 11:23 Stop Date/Time Anesthesia Stop Date: 10/29/24 Anesthesia Stop Time: 11:38 Coding CPT Codes CPT Codes: ANES UPR GI NDSC PX NOS - 17732 ([id number]) P3 - PATIENT W/SEVERE SYS DISEASE, QK - STRAW BOSS 2-4 CNCRNT ANES PROC, QX - BUSINESS DEAN SVC W/ MD MED DIRECTION
--- NOTE | 2024-10-29 11:47 | W.ANESCHARGE ---
Anesthesia Charges Start Date/Time Anesthesia Start Date: 10/29/24 Anesthesia Start Time: 11:23 Stop Date/Time Anesthesia Stop Date: 10/29/24 Anesthesia Stop Time: 11:38 Coding CPT Codes CPT Codes: ANES UPR GI NDSC PX NOS - 65755 ([id number]) P3 - PATIENT W/SEVERE SYS DISEASE, QK - FUR TRAPPER 2-4 CNCRNT ANES PROC, QX - TILER SVC W/ MD MED DIRECTION
[2024-10-29] MEDS: GABAPENTIN 300 MG CAPSULE PO ×2 (14:16→20:58)
[2024-10-29] MEDS: MULTIVITAMIN/MINERALS 1 TABLET 1 TAB PO (14:17)
[2024-10-29] MEDS: OMEPRAZOLE 20 MG CAPSULE DR PO ×2 (14:18→20:58)
[2024-10-29] MEDS: cephALEXin 500 MG CAPSULE PO ×2 (14:18→20:58)
[2024-10-29] MEDS: FOLIC ACID 1 MG TABLET PO (14:19)
[2024-10-29] MEDS: THIAMINE 100 MG TABLET PO (14:19)
[2024-10-29] MEDS: ACETAMINOPHEN 325 MG TABLET 650 MG PO ×2 (14:54→20:59)
[2024-10-29 14:59] LABS: Magnesium* 1.8 mg/dL (1.5-2.6)
[2024-10-29 14:59] LABS: Basophils Percent Auto 0.3 % (0.0-3.0); Eosinophils Percent Auto 0.6 % (0.0-7.0); Hematocrit 50.4 % (33.0-51.0); Hemoglobin* 16.5 gm/dL (12.0-16.0); Immature Granulocytes Pct Auto 0.6 %; Lymphocytes Percent Auto 28.1 % (20-44); Mean Corpuscular HGB Conc 33 gm/dL (32-36); Mean Corpuscular Hemoglobin 34 pg (26-34); Mean Corpuscular Volume 103 fL (80-100); Monocytes Percent Auto 8.3 % (0.0-11.0); Neutrophils Percent Auto 62.1 % (42.0-72.0); Platelet Count* 126 K/uL (140-440); RDW Coefficient of Variation % 16.8 % (11.5-15.5); Red Blood Count 4.91 m/uL (4.00-5.20); White Blood Count* 3.24 K/uL (4.50-11.00)
[2024-10-29 15:06] LABS: Slide Review Reflex No
--- NOTE | 2024-10-29 16:28 | PC.SOCIAL ---
Addendum entered by LEI Finch 10/30/24 10:39: Discharge planning: Following up in referrals sent yesterday for short term rehab: 1. Received confirmation from Derian at [facility], she is reviewing referral for admit at the [facility] owned facilities including [facility], [facility], and [facility] 2. Received confirmation from Ion at [facility], he is reviewing referral for admit at [place] owned facilities including [facility], [facility] and [facility]. 3. Called again to [facility] [phone] and left message requesting call back regarding bed availability. 4. Called [facility] to [facility] [phone] and left message requesting call back regarding bed availability. lease out worker to follow up as needed. Original Note: Discharge planning: Per pt request for intermediate placement, contacted the following facilities with the listed results: 1. [facility] Secure emailed information to Derian at [facility] admissions. Awaiting call back with decision on admit. 2. [facility] emailed information to Derian at [facility] admissions. Awaiting call back with decision on admit. 3. [facility] - Secure emailed information to Derian at [facility] admissions. Awaiting call back with decision on admit. 4. [facility] emailed information to Ion at [place] admissions. Awaiting call back with decision on admit. 5. [facility] - Secure emailed information to Ion at [place] admissions. Awaiting call back with decision on admit. 6. [facility] emailed information to Ion at [place] admissions. Awaiting call back with decision on admit. 7. [facility] - called admissions [phone] and requested call back regarding bed availability. 8. [facility] - Called and was informed no bed availability this week or until late next week. 9. [facility] - [phone]- left message for Lashawn requesting call back regarding bed availability. 10. [facility] - [phone]- left message requesting call back with information on bed availability. lease out worker to follow up as needed.
--- NOTE | 2024-10-29 18:03 | PC.NURSE ---
Patient alert and oriented times four upon initial assessment. All vital signs within normal at that time. Inspection of lower legs found ankles and feet with plus two pitting edema. Provider notified and compression device ordered for calves. Later in the afternoon the pitting was reduced to plus one, and only slightly. Elevation of the lower legs on a pillow was also carried out. At 10:45 the patient was brought down for an endoscopy. A source of a bleed was not found. Hemo blood values are stabilizing towards normality. No signs of blood in stool or urine. Gutierrez catheter in place producing yellow, clear urine. 2-3 stools in a day. Loose, almost oily stool in consistency. Light brown coloration. Weakness of the lower body. Unable to ambulate or move legs to any significant degree without assistance. We are using an EZ stand for safety during transfers. The patient has an ongoing wound or wounds on their backside around the rectal opening and following the anal groove to perineum. Open, red to pink tissue with clear discharge. We are using barrier cream to reduce pain. Right leg pain described as an ache in the morning that may have been due to inactivity overnight. Resolved with reposition. Ongoing, chronic lower back pain treated with lidocaine patch and acetaminophen. Mentation reduced to A/Ox3 during midday as the patient forgot they were in the hospital and this has persisted. Easy to reorientate. Well adjusted confusion. No frustration or anxiety. Plan is to await [facility] at a [facility] facility, preferably one that can accommodate reablation for alcohol dependency. Kane Pineda RN.
[2024-10-29] MEDS: NICOTINE 14 mg PATCH 1 PATCH TRANSDERMA (18:26)
[2024-10-29] MEDS: ENOXAPARIN 40 MG/0.4 ML INJ SUBCUT (20:58)
[2024-10-30 03:00] VITALS: BP 114/87; PULSE 94; RESP 16; TEMP 36.8; O2SAT 96
[2024-10-30] MEDS: ACETAMINOPHEN 325 MG TABLET 650 MG PO ×2 (06:03→15:46)
[2024-10-30 06:45] LABS: Basophils Percent Auto 0.3 % (0.0-3.0); Eosinophils Percent Auto 1.4 % (0.0-7.0); Hematocrit 32.3 % (33.0-51.0); Hemoglobin* 10.5 gm/dL (12.0-16.0); Immature Granulocytes Pct Auto 1.1 %; Lymphocytes Percent Auto 41.5 % (20-44); Mean Corpuscular HGB Conc 33 gm/dL (32-36); Mean Corpuscular Hemoglobin 34 pg (26-34); Mean Corpuscular Volume 105 fL (80-100); Monocytes Percent Auto 12.5 % (0.0-11.0); Neutrophils Percent Auto 43.2 % (42.0-72.0); Platelet Count* 225 K/uL (140-440); RDW Coefficient of Variation % 16.6 % (11.5-15.5); Red Blood Count 3.09 m/uL (4.00-5.20); White Blood Count* 3.59 K/uL (4.50-11.00)
[2024-10-30 06:46] LABS: Slide Review Reflex No
[2024-10-30 07:00] VITALS: BP 100/82; PULSE 104; PULSE 109; RESP 18; TEMP 36.7; O2SAT 95
[2024-10-30 07:02] LABS: Chloride* 102 mmol/L (96-114)
[2024-10-30 07:03] LABS: Albumin* 2.4 g/dL (3.3-5.0); Potassium* 4.5 mmol/L (3.6-5.1); Sodium* 135 mmol/L (135-149)
--- NOTE | 2024-10-30 07:03 | PC.NURSE ---
Shift note: Patient is more alert and oriented this morning compared to the start of the shift yesterday. She responded positively to questions without any signs of confusion. Patient swallowed medications whole with water without any difficulties but one pill at a time. She has been in bed throughout the night. Turn reposition 2-3hrs and upon request. Gutierrez intact and draining clear colored urine, light ben in color. Daughter (Consuelo) called to ask about patient. Nurse returned call at 0030.
[2024-10-30 07:05] LABS: Alanine Aminotransferase* 30 U/L (4-35); Anion Gap 1 mEq/L (7-15); Aspartate Amino Transferase* 26 U/L (12-35); Blood Urea Nitrogen* 15 mg/dL (7-30); Carbon Dioxide* 32 mmol/L (20-32); Creatinine* 0.5 mg/dL (0.5-1.5); Est. Creatinine Clearance* 111.07; Estimated Glomerular Filt Rate 111 ml/min
[2024-10-30 07:06] LABS: Alkaline Phosphatase* 88 U/L (40-150); Bilirubin Total* 0.3 mg/dL (0.1-1.5); Calcium* 8.2 mg/dL (8.4-10.6); Glucose* 93 mg/dL (60-115); Magnesium* 1.4 mg/dL (1.5-2.6)
[2024-10-30] MEDS: MAGNESIUM IV 2 GM/50 ML PIGGYBACK IVPB (08:37)
[2024-10-30] MEDS: POTASSIUM CHLORIDE 10 MEQ CAPSULE ER 20 MEQ PO ×2 (09:18→18:12)
[2024-10-30] MEDS: GABAPENTIN 300 MG CAPSULE PO ×3 (09:19→21:11)
[2024-10-30] MEDS: OMEPRAZOLE 20 MG CAPSULE DR PO ×2 (09:19→21:11)
[2024-10-30] MEDS: MULTIVITAMIN/MINERALS 1 TABLET 1 TAB PO (09:19)
[2024-10-30] MEDS: FOLIC ACID 1 MG TABLET PO (09:19)
[2024-10-30] MEDS: THIAMINE 100 MG TABLET PO (09:19)
[2024-10-30] MEDS: MAGNESIUM OXIDE 400 MG TABLET PO ×2 (09:19→18:12)
[2024-10-30] MEDS: cephALEXin 500 MG CAPSULE PO (09:19)
[2024-10-30] MEDS: SODIUM CHLORIDE 0.9 % (FLUSH) 10 ML SYRINGE 5 ML IVF ×2 (09:19→21:11)
[2024-10-30] MEDS: 0.9 % SODIUM CHLORIDE 250 ml IV (09:20)
[2024-10-30 11:00] VITALS: BP 118/71; PULSE 100; RESP 18; O2SAT 94
[2024-10-30] MEDS: LIDOCAINE 5% PATCH 1 PATCH TRANSDERMA ×2 (12:07→22:06)
--- NOTE | 2024-10-30 12:19 | PM.IMPN1 ---
Assessment and Plan Assessment and plan (1) Wernicke encephalopathy: Problem comment: - on admission 10/24/24: ophthalmoplegia, poor balance, confusion and forgetfulness - treatment with IV thiamine completed, continuing oral replacement - continue therapies, SNF stay currently recommended - trial of Lactulose 10/26-10/27; couldn't tolerate 2/2 diarrhea and worsening metabolic derangement Status: Acute (2) Alcohol use disorder, severe, dependence: Problem comment: - with sequela of chronic use including pancytopenia, hypokalemia, hypomagnesemia, hypocalcemia, fatty infiltration of liver on imaging Status: Chronic (3) Anemia: Problem comment: - Hemoglobin 11.9 on admission, macrocytic - 10/27: hemoglobin trending up, 8.3. FOBT positive, stool without amelia blood - 10/28: Hgb dropped to 7.7, received 1U PRBCs - 10/29: EGD reassuring - 10/30: Hgb has been widely variable (7.7->10->17->16->10), VS stable Status: Acute (4) Chronic back pain: Problem comment: - History of chronic back pain with chronic opioid use until June 2024, admits to increased alcohol use for pain management - CT revealed L4-S1 posterior fusion changes, otherwise unremarkable - Lidocaine patch, ice/heat, frequent repositioning - appear to be helpful - PT/OT following Status: Acute (5) Esophagitis: Problem comment: - reports a few months of symptoms of both esophagitis and pharyngitis - Continue PPI, EGD reassuring 10/29 Status: Acute (6) Malnutrition: Problem comment: - severe protein calorie malnutrition 2/2 ETOH use disorder - evidenced by thiamine deficiency, hypocalcemia, hypomagnesemia, hypokalemia, hypophosphatemia - Family reports weight loss, patient admitted she prefers to drink alcohol rather than eat solid foods on a daily basis - Nutrition has been consulted Status: Acute (7) UTI (urinary tract infection): Problem comment: - pansensitive E Coli, treated with 5 days of Cephalexin Status: Acute (8) Discharge planning issues: Problem comment: - According to the family her living arrangements are not safe and she is unable to care for herself - Daughter is working on possibly having her stay with her in [place]. She does not want to returning to her current home setting - requires SNF per therapies, appreciate assistance from manager social media Status: Acute Subjective Date Seen: 10/30/24 Interval history: Maki was admitted to the hospital on 10/24 for weakness and inability to ambulate in the setting of chronic alcohol use disorder, concern for Wernicke encephalopathy. Since admission: - treated for ETOH withdrawal with Phenobarbital, Lorazepam, and Gabapentin. CIWA scores currently 0 - treated with Keflex for E Coli UTI - transfused 1 U PRBCs on 10/28 for Hgb of 7.7, EGD 10/29 without evidence of acute bleed - receiving IV and oral Magnesium and Potassium supplementation, on thiamine and folic acid Current Hgb is 10.5 with MCT of 105 WBC is 3.59 and platelets are 225. This morning, Maki has no concerns for hospitalist team. Working with therapies, SNF stay recommended and social work assisting. Exam Narrative: Exam Narrative: GEN: Awake and sitting in bed, nontoxic HEENT: EOMIs bilaterally, no scleral icterus CV: RRR, No concerning murmurs R: LCTA bilaterally without concerning wheezing Ext: BLE edema, wearing SCDs, no edema of upper extremities Skin: Scattered bruising of extremities, no other concerning skin lesions Neuro: No focal deficits, no tremor at rest while sitting in bed Psych: Flat affect, otherwise appropriate Const: Vital Signs, click to edit/add: Vital Signs - 24 hr 10/29/24 13:00 10/29/24 13:00 10/29/24 15:00 Temperature 97.6 F 97.6 F Pulse Rate Pulse Rate [Left P ulse Oximeter] 97 97 Respiratory Rate 16 16 16 Blood Pressure [Le ft Arm] 120/82 120/82 Pulse Oximetry 95 95 98 Oxygen Delivery Me thod Room Air Room Air Room Air Oxygen Flow Rate 1 10/29/24 15:00 10/29/24 15:00 10/29/24 18:36 Temperature 97.4 F L 98.6 F Pulse Rate 107 H Pulse Rate [Left P ulse Oximeter] 108 H 118 H Respiratory Rate 16 16 Blood Pressure [Le ft Arm] 106/82 101/64 Pulse Oximetry 98 98 Oxygen Delivery Me thod Room Air Room Air Oxygen Flow Rate 10/29/24 19:00 10/29/24 22:54 10/29/24 22:54 Temperature 98.6 F Pulse Rate Pulse Rate [Left P ulse Oximeter] 112 H 110 H Respiratory Rate 16 16 16 Blood Pressure [Le ft Arm] 90/70 Pulse Oximetry 93 93 Oxygen Delivery Me thod Room Air Room Air Oxygen Flow Rate 10/29/24 22:54 10/29/24 23:00 10/30/24 03:00 Temperature 98 F 98.2 F Pulse Rate 111 H Pulse Rate [Left P ulse Oximeter] 110 H 94 Respiratory Rate 16 16 Blood Pressure [Le ft Arm] 96/66 114/87 Pulse Oximetry 93 96 Oxygen Delivery Me thod Room Air Room Air Oxygen Flow Rate 10/30/24 07:00 10/30/24 07:00 10/30/24 07:00 Temperature 98.1 F Pulse Rate Pulse Rate [Left P ulse Oximeter] 109 H 109 H Respiratory Rate 18 18 Blood Pressure [Le ft Arm] 100/82 Pulse Oximetry 95 95 Oxygen Delivery Me thod Room Air Room Air Oxygen Flow Rate 10/30/24 07:00 Temperature Pulse Rate 104 H Pulse Rate [Left P ulse Oximeter] Respiratory Rate Blood Pressure [Le ft Arm] Pulse Oximetry Oxygen Delivery Me thod Oxygen Flow Rate Labs Labs: Laboratory Results - last 24 hr 10/29/24 10/29/24 10/30/24 14:12 14:43 06:40 WBC 3.24 L 3.59 L RBC 4.91 3.09 L Hgb 16.5 H 10.5 L Hct 50.4 32.3 L MCV 103 H 105 H MCH 34 34 MCHC 33 33 RDW Coeff of Clay 16.8 H 16.6 H Plt Count 126 L 225 Neut % (Auto) 62.1 43.2 Lymph % (Auto) 28.1 41.5 [place] % (Auto) 8.3 12.5 H Eos % (Auto) 0.6 1.4 Baso % (Auto) 0.3 0.3 Neut # (Auto) 2.00 1.60 L Lymph # (Auto) 0.90 1.50 [place] # (Auto) 0.30 0.40 Eos # (Auto) 0.00 0.10 Baso # (Auto) 0.00 0.00 Abs Immat Gran (auto) 0.00 0.00 Imm/Tot Granulo (auto) 0.6 1.1 Sodium 135 Potassium 4.5 Chloride 102 Carbon Dioxide 32 Anion Gap 1 L BUN 15 Creatinine 0.5 Estimated Creat Clear 111.07 Estimated GFR 111 Glucose 93 Calcium 8.2 L Magnesium 1.8 1.4 L Total Bilirubin 0.3 AST 26 ALT 30 Alkaline Phosphatase 88 Total Protein 5.0 L Albumin 2.4 L
[2024-10-30 15:00] VITALS: BP 111/86; PULSE 101; PULSE 92; RESP 16; TEMP 36.4; O2SAT 96
--- NOTE | 2024-10-30 15:29 | PC.SOCIAL ---
Discharge Planning: SUNITA received update from Ion, with [facility], that [facility] can accept patient on 10/30. SUNITA spoke with patient about this and she was agreeable as long as there was no cost to her. SUNITA checked with Ion who states there will be no cost and updated patient. Patient reports that she will, go but needed to get clothes from home. SW explained that patient wouldn't be able to go home prior to going to TCU and that a family member would need to bring her clothes. Patient expressed understanding. SUNITA spoke with patient's daughter about clothes and informed SW that patient has some in her closet already. SUNITA spoke with patient's daughter and explained patient's acceptance to [facility]. Patient's daughter agreed to this as well as a good plan. Patient's daughter plans to come to the hospital tomorrow and would like to complete a HCD and was hoping that there would be a notary present. SW explained that she could check to see if someone would be available, but couldn't guarantee that there would be one. Daughter expressed understanding. Daughter discussed wanting to be patient's decision maker and SUNITA explained that daughter would need to file for guardianship of the patient to be able to make decisions for her. Daughter is concerned patient may not go back with her to [place]. SW expressed validation and empathy for daughter's concerns and reiterated that at this point patient could refuse that as she is her own decision maker. Daughter states she will do more research into the process. SUNITA informed Ion of agreement to placement at [facility]. SUNITA to complete PAS and send to Ion on 10/31. [facility] transport is needed and set for 10/31. SUNITA provided air export coordinator with pharmacy information.
--- NOTE | 2024-10-30 16:48 | PC.SOCIAL ---
Discharge planning: rolled materials worker received conflicting information on whether pt has coverage for short term rehab under her [employer] Medicaid insurance plan. [facility], who has accepted pt for admit stated she has insurance coverage and the store coordinator for the [facility] said she does not have coverage. Spoke with pt, son and dtr regarding this conflicting information and provided them information on how they can contact customer service for pt's insurance to ask about this coverage. 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 So, they feel comfortable calling customer service at the insurance and asking about coverage. Son and dtr plan to be at the hospital tomorrow at 9:30 to discuss discharge plan, and will share the results of the insurance call at that time. rolled materials worker to follow up as needed.
[2024-10-30] MEDS: TRAMADOL HCL 50 MG TABLET 100 MG PO (18:13)
--- NOTE | 2024-10-30 18:52 | PC.NURSE ---
Nursing Care Hours: [id number] Pt this shift alert and oriented self and place. Pain to low back rated 7/10, see eMAR. BP stable, Sinus tach on tele. Pt reports moist cough is chronic. Expiratory rhonchi to bilat lower lobes. Skin throughout is dry and flaky, lotion applied. Ax2 pivot transfer to [facility] tolerated well. BM this shift. Gutierrez patent. Pt has flat affect but cooperative. Tolerating diet.
[2024-10-30 19:00] VITALS: BP 106/79; PULSE 94; RESP 16; TEMP 36.9; O2SAT 96
[2024-10-30] MEDS: ENOXAPARIN 40 MG/0.4 ML INJ SUBCUT (21:11)
[2024-10-30] MEDS: NICOTINE 14 mg PATCH 1 PATCH TRANSDERMA (21:11)
[2024-10-30] MEDS: ACETAMINOPHEN 650 MG TABLET ER 1300 MG PO (22:06)
--- NOTE | 2024-10-30 22:19 | PC.NURSE ---
End of Shift: Patient pleasant and cooperative. Alert and oriented. Afebrile. Rating pain in right knee 01/20. Updated MD and one time order for Ultram and scheduled Lidoderm patch. Up to chair with 2 assist, walker and gait belt. Tolerating regular diet with no nausea. Gutierrze patent.
[2024-10-30 23:00] VITALS: BP 111/82; PULSE 102; RESP 16; TEMP 37.1; O2SAT 94
[2024-10-31 00:51] VITALS: PULSE 96
[2024-10-31 01:53] VITALS: BP 117/85; PULSE 103; RESP 18; TEMP 36.4; O2SAT 94
--- NOTE | 2024-10-31 05:14 | PC.NURSE ---
Security staff alerted nursing staff that pt had dialed 911 early this morning and reported she thought she heard people walking around in the hallway outside of her room. [place] Support Worker then went to check on patient and patient said, Yeah I had called the non-emergent number. I just wasn't sure if I should get up and investigate when I thought I heard people in the hallway. [place] Support Worker reassured pt that nursing staff check hallways frequently and encouraged pt to rest in bed. Pt agreeable and thanked software writer for checking on her. Pt in bed at this time with bed alarm on for safety as she is high fall risk. [place] Support Worker also emptied Gutierrez catheter and updated pt's primary nurse regarding pt dialing 911 this morning.
--- NOTE | 2024-10-31 05:40 | PC.NURSE ---
Pt is alert and oriented x3. Afebrile. Pt reports 4/10 pain in back and right knee, pain managed with scheduled medications and repositioning. Pt is up?A1-2 pivot to commode. Pt?s catheter is patent and draining.?Pt was turned and repositioned throughout night as pt allowed.
[2024-10-31 06:45] LABS: Basophils Percent Auto 0.6 % (0.0-3.0); Eosinophils Percent Auto 0.9 % (0.0-7.0); Hematocrit 29.8 % (33.0-51.0); Hemoglobin* 9.6 gm/dL (12.0-16.0); Immature Granulocytes Pct Auto 0.6 %; Lymphocytes Percent Auto 43.6 % (20-44); Mean Corpuscular HGB Conc 32 gm/dL (32-36); Mean Corpuscular Hemoglobin 34 pg (26-34); Mean Corpuscular Volume 106 fL (80-100); Monocytes Percent Auto 14.3 % (0.0-11.0); Platelet Count* 255 K/uL (140-440); Red Blood Count 2.82 m/uL (4.00-5.20); White Blood Count* 3.28 K/uL (4.50-11.00)
[2024-10-31 06:54] LABS: Slide Review Reflex No
[2024-10-31 06:57] LABS: Chloride* 103 mmol/L (96-114); Potassium* 4.8 mmol/L (3.6-5.1); Sodium* 133 mmol/L (135-149)
[2024-10-31 06:59] LABS: Blood Urea Nitrogen* 12 mg/dL (7-30); Creatinine* 0.5 mg/dL (0.5-1.5); Est. Creatinine Clearance* 111.07; Estimated Glomerular Filt Rate 111 ml/min
[2024-10-31 07:00] VITALS: PULSE 91
[2024-10-31 07:00] LABS: Anion Gap 0 mEq/L (7-15); Calcium* 8.3 mg/dL (8.4-10.6); Carbon Dioxide* 30 mmol/L (20-32); Glucose* 89 mg/dL (60-115)
--- NOTE | 2024-10-31 07:15 | PM.DS1 ---
DS: Providers Provider Date Seen: 10/31/24 Date of admission: 10/24/24 23:13 Primary care physician: Not a Local Provider Admitting Clinician: Gunner Henry MD Consults: OT, PT, Speech Therapy, Nutrition, SW Attending Physician on discharge: Hope Castañeda MD Date of Discharge: 10/31/24 DS: Diagnosis Discharge Diagnosis (1) Wernicke encephalopathy: Status: Acute Problem details: - on admission 10/24/24: ophthalmoplegia, poor balance, confusion and forgetfulness - completed treatment with IV thiamine, continuing oral replacement upon d/c - trial of Lactulose 10/26-10/27; couldn't tolerate 2/2 diarrhea and worsening metabolic derangement - improved during stay (2) Alcohol use disorder, severe, dependence: Status: Chronic Problem details: - with sequela of chronic use including pancytopenia, hypokalemia, hypomagnesemia, hypocalcemia, fatty infiltration of liver on imaging (3) Anemia: Status: Acute Problem details: - Hemoglobin 11.9 on admission, macrocytic - FOBT positive, EGD on 10/29 without acute bleeding - Hgb di of 7.7, received 1U of PRBCs, Hgb then improved and was 9.6 upon discharge (4) Chronic back pain: Status: Acute Problem details: - History of chronic back pain with chronic opioid use until June 2024, admits to increased alcohol use for pain management - CT revealed L4-S1 posterior fusion changes, otherwise unremarkable - Lidocaine patch, ice/heat, frequent repositioning - appear to be helpful - PT/OT following (5) Esophagitis: Status: Acute Problem details: - reports a few months of symptoms of both esophagitis and pharyngitis - Continue PPI, EGD reassuring 10/29 (6) Malnutrition: Status: Acute Problem details: - severe protein calorie malnutrition 2/2 ETOH use disorder - evidenced by thiamine deficiency, hypocalcemia, hypomagnesemia, hypokalemia, hypophosphatemia, hypoalbuminemia - Family reports weight loss, patient admitted she prefers to drink alcohol rather than eat solid foods on a daily basis - Nutrition followed during stay (7) UTI (urinary tract infection): Status: Acute Problem details: - pansensitive E Coli, treated with 5 days of Cephalexin (8) Discharge planning issues: Status: Acute Problem details: - According to the family her living arrangements are not safe and she is unable to care for herself - Daughter is working on possibly having her stay with her in [place]. She does not want to returning to her current home setting - requires SNF per therapies DS: Summary Hospital Course Hospital Course: Maki was admitted to the hospital on 10/24 for weakness and inability to ambulate in the setting of chronic alcohol use disorder, concern for Wernicke encephalopathy. During stay: - treated for ETOH withdrawal with Phenobarbital, Lorazepam, and Gabapentin - treated with Keflex for E Coli UTI - transfused 1 U PRBCs on 10/28 for Hgb of 7.7, EGD 10/29 without evidence of acute bleed. Discharge Hgb is stable at 9.6 - received IV and oral Magnesium and Potassium supplementation, on thiamine and folic acid - tolerating regular diet upon discharge - followed by therapies, SNF stay recommended Maki was medically appropriate for discharge to SNF on 10/31/24. Status at Discharge Overall status at discharge: patient is progressing back to baseline Time Spent with Patient Time attestation: Total time spent providing and/or coordinating discharge services: Exam Narrative: Exam Narrative: GEN: Awake and sitting in bed, eating breakfast HEENT: EOMIs bilaterally, no scleral icterus CV: RRR, No concerning murmurs R: Breathing comfortably Ext: BLE edema, symmetric/stable Skin: Scattered bruising of extremities, no other concerning skin lesions Neuro: No focal deficits, no tremor at rest while sitting in bed Psych: Flat affect, mild psychomotor slowing, otherwise appropriate Const: Vital Signs, click to edit/add: Vital Signs - 24 hr 10/30/24 11:00 10/30/24 15:00 10/30/24 15:00 Temperature 97.6 F Pulse Rate Pulse Rate [Left P ulse Oximeter] 100 92 Respiratory Rate 18 16 Blood Pressure [Le ft Arm] 111/86 Blood Pressure [Le ft Radial Artery] 118/71 Pulse Oximetry 94 96 96 Oxygen Delivery Me thod Room Air Room Air Room Air 10/30/24 15:00 10/30/24 15:00 10/30/24 19:00 Temperature 98.4 F Pulse Rate 101 H Pulse Rate [Left P ulse Oximeter] 92 94 Respiratory Rate 16 16 Blood Pressure [Le ft Arm] 106/79 Blood Pressure [Le ft Radial Artery] Pulse Oximetry 96 Oxygen Delivery Me thod Room Air 10/30/24 23:00 10/30/24 23:00 10/30/24 23:00 Temperature 98.8 F Pulse Rate Pulse Rate [Left P ulse Oximeter] 102 H 102 H Respiratory Rate 16 16 Blood Pressure [Le ft Arm] 111/82 Blood Pressure [Le ft Radial Artery] Pulse Oximetry 94 94 Oxygen Delivery Me thod Room Air Room Air 10/31/24 00:51 10/31/24 01:53 10/31/24 07:00 Temperature 97.6 F Pulse Rate 96 91 Pulse Rate [Left P ulse Oximeter] 103 H Respiratory Rate 18 Blood Pressure [Le ft Arm] 117/85 Blood Pressure [Le ft Radial Artery] Pulse Oximetry 94 Oxygen Delivery Me thod Room Air DS: Data Data Completed and Pending Labs on day of discharge: Labs from last 24 hours 10/31/24 06:30 WBC 3.28 L RBC 2.82 L Hgb 9.6 L Hct 29.8 L MCV 106 H MCH 34 MCHC 32 RDW Coeff of Clay 16.0 H Plt Count 255 Neut % (Auto) 40.0 L Lymph % (Auto) 43.6 [place] % (Auto) 14.3 H Eos % (Auto) 0.9 Baso % (Auto) 0.6 Neut # (Auto) 1.30 L Lymph # (Auto) 1.40 [place] # (Auto) 0.50 Eos # (Auto) 0.00 Baso # (Auto) 0.00 Abs Immat Gran (auto) 0.00 Imm/Tot Granulo (auto) 0.6 Sodium 133 L Potassium 4.8 Chloride 103 Carbon Dioxide 30 Anion Gap 0 L BUN 12 Creatinine 0.5 Estimated Creat Clear 111.07 Estimated GFR 111 Glucose 89 Calcium 8.3 L Discharge Plan Discharge Disposition: Xfer [facility] Date of Admission: 10/24/24 23:13 Attending Provider on Discharge: Hope Castañeda Primary Care Provider: Provider,Not a Local Condition: Improved Anticipated Discharge Date/Time: 10/31/24 07:10 Discharge Medications: New lidocaine 5 % Adhesive Patch,Medicated 1 patch transdermal Q24H Qty: 30 0RF potassium chloride 10 mEq Capsule, Extended Release 20 meq PO BIDWM Qty: 60 0RF nicotine 14 mg/24 hr Patch 24 Hour 1 patch transdermal DAILY Qty: 28 0RF acetaminophen 650 mg Tablet Extended Release 1,300 mg PO Q8H PRNQty: 30 0RF magnesium oxide 400 mg (241.3 mg magnesium) Tablet 400 mg PO BIDWM Qty: 60 0RF gabapentin 300 mg Capsule 300 mg PO QHS Qty: 30 0RF omeprazole 20 mg Capsule,Delayed Release(Dr/Ec) 20 mg PO BID Qty: 60 0RF folic acid 1 mg Tablet 1 mg PO DAILY Qty: 30 0RF thiamine mononitrate (vit B1) [Vitamin B-1 (mononitrate)] 100 mg Tablet 100 mg PO DAILY Qty: 30 0RF Discontinued gabapentin 300 mg capsule 300 mg PO 3XD Discharge Orders: Discharge Order (Routine); Ordered 10/31/24 Ordered By: Hope Castañeda Activity Level: Activity as Tolerated Discharge Diet: Regular Diet Detail: Regular diet/btns-[id number] softer food items Small single sips by cup with chin down-no straw Follow Up Appointments: Provider,Not a Local [Primary Care Provider, Family Practice] Forms: [facility] Info Instructions Admit to: SNF Discharge Potential: Fair Length of Stay: 30-90 days Can use facility standing orders?: Yes Code Status: Full Code TEDs: Bilateral Knee Rehab Potential: Fair Therapy: Physical Therapy and Occupational Therapy Therapy Orders: Evaluate and Treat Oxygen: No Urinary Catheter: No Glucose Checks: n/a Next INR: n/a Lab Orders: BMP, CBC, and Magnesium in one week Orders are good >30 days: Yes Signature: Hope Castañeda MD
[2024-10-31 07:45] VITALS: BP 120/91; PULSE 100; RESP 18; TEMP 36.4; O2SAT 94
[2024-10-31] MEDS: POTASSIUM CHLORIDE 10 MEQ CAPSULE ER 20 MEQ PO (08:57)
[2024-10-31] MEDS: MAGNESIUM OXIDE 400 MG TABLET PO (08:57)
[2024-10-31] MEDS: OMEPRAZOLE 20 MG CAPSULE DR PO (08:57)
[2024-10-31] MEDS: ACETAMINOPHEN 650 MG TABLET ER 1300 MG PO (08:57)
[2024-10-31] MEDS: MULTIVITAMIN/MINERALS 1 TABLET 1 TAB PO (08:57)
[2024-10-31] MEDS: GABAPENTIN 300 MG CAPSULE PO (08:57)
[2024-10-31] MEDS: THIAMINE 100 MG TABLET PO (08:57)
[2024-10-31] MEDS: FOLIC ACID 1 MG TABLET PO (08:58)
--- NOTE | 2024-10-31 11:01 | PC.SOCIAL ---
Discharge Planning: SUNITA spoke with Ion, Ion's nursery supervisor, and UR to discuss patient's insurance. SUNITA was informed by [facility]'s nursery supervisor Mirna that while patient does not have SNF coverage they will work with the family and insurance to get coverage. SUNITA and SUNITA Martínez spoke with family about insurance and family discussed what they had heard from insurance. Patient and family still feel comfortable with sending her to [facility]. SUNITA discussed that insurance won't cover the EMS ride and that patient won't qualify for the ride as the other day she would have based on her needs. Family expressed understanding and are wondering if she is capable of transferring in their own car vs paying for ambulance. SUNITA asked that PT assess. PT assessed and felt that patient would be able to transfer in family car. Family agreeable to transport and [facility] was cancelled. SUNITA completed PAS and sent to Ion. SUNITA also sent orders and ride time. SUNITA provided RN with nurse to nurse number. PAS number is [id number].
--- NOTE | 2024-10-31 11:39 | PC.NURSE ---
discharge. Pt pleasant and cooperative. she is alert x3. knee pain and she got po tylenol./ Brenda was d/c this am and she did void 1 time after. Lidoderm patch to the knee and nicotine patch to the right shoulder. SL was d/c intact nurse to nurse. was done. PT and OT worked with her. she left with daughter and paperwork. and all belongings. tele was NSR and it was d/c./
== END 2024-10-31 11:25 | disposition home or self-care (01) | DRG 421 ==
LOC: ED 19:04 → MEDSURG 22:08
PROVIDERS: Family Medicine; Physician Assistant; Admitting Provider Family Medicine; Emergency Provider Family Medicine; Visit Provider Family Medicine
DX: E51.2 Wernicke's encephalopathy (principal); K70.0 Alcoholic fatty liver; F10.239 Alcohol dependence with withdrawal, unspecified; E43 Unspecified severe protein-calorie malnutrition; J02.9 Acute pharyngitis, unspecified; K20.90 Esophagitis, unspecified without bleeding; F10.20 Alcohol dependence, uncomplicated; N39.0 Urinary tract infection, site not specified; B96.20 Unspecified Escherichia coli [E. coli] as the cause of diseases classified elsewhere; D61.818 Other pancytopenia; H49.9 Unspecified paralytic strabismus; E83.42 Hypomagnesemia; E83.51 Hypocalcemia; E87.1 Hypo-osmolality and hyponatremia; D64.9 Anemia, unspecified; I95.9 Hypotension, unspecified; Z59.19 Other inadequate housing; E87.6 Hypokalemia; E83.39 Other disorders of phosphorus metabolism; K31.89 Other diseases of stomach and duodenum; R19.5 Other fecal abnormalities; F11.91 Opioid use, unspecified, in remission; G89.29 Other chronic pain; M54.50 Low back pain, unspecified; M25.511 Pain in right shoulder; K08.89 Other specified disorders of teeth and supporting structures; F17.210 Nicotine dependence, cigarettes, uncomplicated
CPT/HCPCS: 00731; 36415; 36430; 43239; 51701; 51798; 71045; 71260; 74177; 74230; 80048; 80053; 80076; 80306; 81001; 82077; 82270; 82330; 82607; 82728; 82803; 83540; 83550; 83605; 83690; 83735; 83880; 83970; 84100; 84132; 84443; 84484; 85018; 85025; 85379; 86850; 86900; 86901; 86922; 87040; 87086; 87651; 88305; 92526; 92610; 92611; 93005; 93306; 97110; 97112; 97116; 97162; 97166; 97530; 97535; 99284; 99285; A9153; A9270; J0613; J0696; J1650; J1885; J1938; J2470; J2560; J2704; J3411; J3475; J3480; J3490; J7030; J7042; J7050; J7120; P9016; Q9967; S4990

== ENCOUNTER 2024-11-20 10:57 | Outpatient (CLI) | payer BC, SELFPAY | END 2024-11-20 10:58 | disposition home or self-care (01) | PROVIDERS: Visit Provider Physician Assistant Medical | DX: E87.6 Hypokalemia (principal); D64.9 Anemia, unspecified; F10.939 Alcohol use, unspecified with withdrawal, unspecified | CPT/HCPCS: 80053; 83735; 84425 ==

== ENCOUNTER 2025-01-01 11:07 | Outpatient (CLI) | payer BC, SELFPAY | END 2025-01-01 11:08 | disposition home or self-care (01) | PROVIDERS: PCP Physician Assistant Medical; Visit Provider Physician Assistant Medical | DX: E87.6 Hypokalemia (principal); E83.42 Hypomagnesemia; G89.29 Other chronic pain; Z13.29 Encounter for screening for other suspected endocrine disorder; Z13.6 Encounter for screening for cardiovascular disorders; Z13.9 Encounter for screening, unspecified | CPT/HCPCS: 80053; 80061; 84443 ==

== ENCOUNTER 2025-02-15 10:01 | Outpatient (CLI) | payer BC, SELFPAY ==
--- NOTE | 2025-02-15 10:15 | CRLHL7_ITS ---
For Patients: As a result of the Century Cures Act, medical imaging exams and procedure reports are released immediately into your electronic medical record. You may view this report before your referring provider. If you have questions, please contact your health care provider. INDICATION: Chronic low back pain. Right hip pain. COMPARISON: 10/24/2024. Technique Sagittal T1, T2, and STIR sequences. Axial T1 and T2 weighted sequences. FINDINGS: Normal vertebral body alignment. No fractures. No vertebral body loss of height. No spondylolisthesis. No suspicious osseous lesions. Normal conus terminates at L1. Postoperative changes of diskectomy interbody fusion L4-5 and L5-S1. Laminectomies and posterior fusion hardware L4-S1. Normal conus terminates at L1. T12-L1 L1-2 L2-3: No spinal canal neural foraminal narrowing. L3-4: Disc degeneration and posterior disc bulge. Mild narrowing of spinal canal. No neural foraminal narrowing. L4-5: No spinal canal or neural foraminal narrowing. L5-S1: Postop changes. No narrowing of spinal canal. No impingement of the traversing S1 nerve roots. No neural foraminal narrowing. Normal visualized SI joints. Normal paraspinal soft tissues. IMPRESSION: 1. Normal alignment. No fractures 2. Postop changes L4-5 and L5-S1. 3. At L3-4, mild narrowing of the spinal canal 4. No spinal canal or neural foraminal narrowing at the remaining levels Dictated by Sergio Thomas MD @ 02/16/2025 8:52:31 AM (Electronically Signed)
== END 2025-02-15 10:02 | disposition home or self-care (01) ==
LOC: MRI 10:01
PROVIDERS: PCP Physician Assistant Medical; Visit Provider Physician Assistant Medical
DX: M54.41 Lumbago with sciatica, right side (principal); M51.26 Other intervertebral disc displacement, lumbar region; M25.551 Pain in right hip; G89.29 Other chronic pain
CPT/HCPCS: 72148

== ENCOUNTER 2025-03-15 10:08 | Outpatient (CLI) | payer BC, SELFPAY ==
--- NOTE | 2025-03-15 10:45 | CRLHL7_ITS ---
For Patients: As a result of the Cures Act, medical imaging exams and procedure reports are released immediately into your electronic medical record. You may view this report before your referring provider. If you have questions, please contact your health care provider. Indication: Knee pain Technique: Right knee 3 views Comparison: 01/01/2025 Findings: Stable benign density in the distal femoral shaft. Chronic changes to the distal femoral cortex. No acute fracture. No synovitis. Impression: No acute findings. Dictated by Michael Albrecht MD @ 03/15/2025 11:15:33 AM (Electronically Signed)
== END 2025-03-15 10:09 | disposition home or self-care (01) ==
PROVIDERS: PCP Physician Assistant Medical; Visit Provider Nurse Practitioner
DX: M25.561 Pain in right knee (principal)
CPT/HCPCS: 73562

== ENCOUNTER 2025-04-05 13:25 | Outpatient (CLI) | payer BC, SELFPAY ==
--- NOTE | 2025-04-05 13:45 | CRLHL7_ITS ---
For Patients: As a result of the Century Cures Act, medical imaging exams and procedure reports are released immediately into your electronic medical record. You may view this report before your referring provider. If you have questions, please contact your health care provider. EXAM: MRI OF THE RIGHT KNEE, WITHOUT CONTRAST CLINICAL INDICATION: Knee pain. PRIOR SURGERY: None reported. COMPARISON PLAIN FILMS: 15 March 2025. COMPARISON CROSS-SECTIONAL IMAGING STUDIES: None available at time of interpretation. TECHNICAL: Axial, sagittal and coronal T1, PD, PD FS, STIR and T2 FS images. FINDINGS: OSSEOUS STRUCTURES: Serpiginous broad intermediate T1 high T2 and STIR geographic lines within the epiphyses of tibia and femur and throughout the patella with uniform fat signal within these areas of demarcation. No reactive marrow edema. No fragmentation or collapse of articular contour. JOINT SPACE AND CAPSULE: Effusion: No significant joint effusion or synovitis. Joint Bodies: None seen. CRUCIATE LIGAMENTS: Anterior Cruciate Ligament: Normal. Posterior Cruciate Ligament: Normal. EXTENSOR MECHANISM: Distal Quadriceps Tendon: Normal. Patellar Tendon: Normal. Medial Patellar Retinaculum and Medial Patellofemoral Ligament: Normal. Lateral Patellar Retinaculum: Normal. Normal patellar alignment. No patella pattie. Normal trochlear depth. Normal lateral trochlear inclination. MEDIAL COLLATERAL LIGAMENT AND POSTEROMEDIAL CORNER COMPLEX: Medial Collateral Ligament: Normal. Medial Head of the Gastrocnemius and Semimembranosus Tendons: Normal. LATERAL COLLATERAL LIGAMENT COMPLEX AND POSTEROLATERAL CORNER COMPLEX: Fibular Collateral Ligament: Normal. Distal Biceps Femoris Tendon Complex: Normal. Iliotibial Band: Normal. Popliteus Tendon: Normal. Posterolateral Corner Capsule: Normal. MEDIAL COMPARTMENT: Medial Meniscus: Normal size and morphology without tear. Articular Cartilage: Articular surfaces appear smooth without focal articular cartilage defect or subchondral marrow changes. LATERAL COMPARTMENT: Lateral Meniscus: Normal size and morphology without tear. Articular Cartilage: Articular surfaces appear smooth without focal articular cartilage defect or subchondral marrow changes. PATELLOFEMORAL COMPARTMENT: Articular Cartilage: Articular surfaces appear smooth without focal articular cartilage defect or subchondral marrow changes. PERIARTICULAR SOFT TISSUES: Popliteal Cyst: Moderately large popliteal Ocampo`s cyst. Greatest craniocaudal length roughly 7 cm. Periarticular Cysts or Ganglia: None. Bursae: No prepatellar, superficial infrapatellar, deep infrapatellar, pes anserinus or semimembranosus/MCL bursitis. Musculature: No muscle atrophy or muscle edema. Subcutaneous and Soft Tissues: No subcutaneous or soft tissue mass, edema or fluid collection. Neurovascular Structures: Normal. IMPRESSION: 1. 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 2. Large Ocampo`s popliteal cyst. 3. No internal derangement of menisci or ligaments. Cartilage is well maintained. Dictated by Mehrdad Rand MD @ 04/08/2025 8:10:53 AM (Electronically Signed)
== END 2025-04-05 13:26 | disposition home or self-care (01) ==
LOC: MRI 13:25
PROVIDERS: PCP Physician Assistant Medical; Visit Provider Nurse Practitioner
DX: M25.561 Pain in right knee (principal); M87.9 Osteonecrosis, unspecified; M71.21 Synovial cyst of popliteal space [Baker], right knee
CPT/HCPCS: 73721